=== PATIENT | female | born 1930 | race Caucasian/White ===

== ENCOUNTER 2018-07-04 20:29 | Emergency (ER) | payer MEDICARE ==
--- NOTE | 2018-07-04 21:44 | ED ---
Upper Extremity Pain - HPI Summary HPI Summary: Patient plans of right wrist pain after mechanical fall while working in the garden. Denies any other injuries, pain, symptoms including head injury, LOC, N /V, vision change, focal deficits. No anti-coag. Denies medical history. - History of Current Complaint Chief Complaint: EDExtremityUpper Stated Complaint: RT WRIST INJURY Time Seen by Provider: 07/04/18 21:19 Hx Obtained From: Patient Mechanism Of Injury: Fall From A Standing Position Onset/Duration: Started Hours Ago Timing: Constant Severity Initially: Moderate Severity Currently: Moderate Pain Location: Wrist Character: Throbbing Aggravating Factor(s): Movement Alleviating Factor(s): Ice Associated Signs & Symptoms: Positive: Swelling - Allergies/Home Medications Allergies/Adverse Reactions: Allergies Allergy/AdvReac Type Severity Reaction Status Date / Time No Known Allergies Allergy Verified 07/04/18 20:34 PMH/Surg Hx/FS Hx/Imm Hx Endocrine/Hematology History: Denies: Hx Anticoagulant Therapy Cardiovascular History: Denies: Hx Cardiac Arrest History: Denies: Hx Dialysis Neurological History: Denies: Hx CVA Infectious Disease History: No Infectious Disease History: Denies: Traveled Outside the [place] in Last 30 Days - Social History Alcohol Use: Daily Alcohol Amount: one glasss of wine Substance Use Type: Reports: None Smoking Status (MU): Former Smoker Review of Systems Constitutional: Negative Eyes: Negative ENT: Negative Cardiovascular: Negative Respiratory: Negative Gastrointestinal: Negative Genitourinary: Negative Musculoskeletal: Other Skin: Negative Neurological: Negative Psychological: Normal All Other Systems Reviewed And Are Negative: Yes Physical Exam - Summary Physical Exam Summary: Dorsal swelling and likely deformity to right wrist. Mild snuffbox tenderness. Patient able to flex and extend right wrist. PMS intact distally. No pain with flexion or extension of right elbow, right shoulder. Triage Information Reviewed: Yes Vital Signs On Initial Exam: Initial Vitals Temp Pulse Resp BP Pulse Ox 98.9 F 71 18 146/105 100 07/04/18 20:30 07/04/18 20:30 07/04/18 20:30 07/04/18 20:30 07/04/18 20:30 Vital Signs Reviewed: Yes Appearance: Positive: Well-Appearing Skin: Positive: Warm Head/Face: Positive: Normal Head/Face Inspection Eyes: Positive: Normal Neck: Positive: Supple Respiratory/Lung Sounds: Positive: Clear to Auscultation Cardiovascular: Positive: Normal Abdomen Description: Positive: Nontender Musculoskeletal: Positive: Normal Neurological: Positive: Normal Psychiatric: Positive: Normal AVPU Assessment: Alert - [place] Coma Scale Best Eye Response: 4 - Spontaneous Best Motor Response: 6 - Obeys Commands Best Verbal Response: 5 - Oriented Coma Scale Total: 15 Procedures - Splinting 1 Location: right wrist Hand-Made Type: orthoglass Splint: sugar-tong Pre-Proc Neuro Vasc Exam: normal Post-Proc Neuro Vasc Exam: normal Diagnostics - Vital Signs Vital Signs Temp Pulse Resp BP Pulse Ox 07/04/18 20:30 98.9 F 71 18 146/105 100 - Laboratory Lab Statement: Any lab studies that have been ordered have been reviewed, and results considered in the medical decision making process. - Radiology wrist Xray Interpretation: Positive (See Comments) - Distal radius fracture Radiology Interpretation Completed By: ED Physician forearm Xray Interpretation: Positive (See Comments) - Distal radius fracture Radiology Interpretation Completed By: ED Physician Course/Dx - Course Course Of Treatment: Patient plans of right wrist pain after mechanical fall while working in the garden. Denies any other injuries, pain, symptoms including head injury, LOC, N/V, vision change, focal deficits. No anti-coag. Denies medical history. Physical exam:Dorsal swelling to right wrist, with likley deformity. Mild snuffbox tenderness. Patient able to flex and extend right wrist. PMS intact distally. No pain with flexion or extension of right elbow, right shoulder. Sugar tong placed here in ED. Follow-up with Orthopedics tomorrow. Patient refused narcotic pain control - Diagnoses Provider Diagnoses: Fall, Distal radius fracture, right Discharge - Sign-Out/Discharge Documenting (check all that apply): Patient Departure - Discharge Plan Condition: Stable Disposition: HOME Patient Education Materials: Fall Prevention (ED) Referrals: Ian Alvares MD [Primary Care Provider] - Bella Duke MD [Medical Doctor] - Additional Instructions: Follow-up with orthopedics. Return to the ED for any new or worsening symptoms - Billing Disposition and Condition Condition: STABLE Disposition: Home
[2018-07-04] MEDS ORDERED: Acetaminophen TAB* 325 MG PO ONE (22:39)
[2018-07-04 23:19] VITALS: BP 152/68
--- NOTE | 2018-07-05 07:31 | RAD ---
INDICATION: Right elbow and wrist pain after a fall TECHNIQUE: 2 views of the right forearm and 3 views of the right wrist were obtained. FINDINGS: The right elbow and proximal forearm are intact and appropriately aligned. There is a fracture at the distal right radial metaphysis exhibiting minimal impaction and approximately 20 degrees of dorsal angulation. The remaining visualized bones of the right wrist are intact and appropriately aligned. Degenerative changes at the right thumb include sclerotic of the metacarpal trapezium joint. IMPRESSION: Distal right radius fracture. R0
== END 2018-07-04 23:18 | disposition home or self-care (01) ==
LOC: ED 20:29
DX: S52.501A Unspecified fracture of the lower end of right radius, initial encounter for closed fracture (principal); W19.XXXA Unspecified fall, initial encounter; Y93.H2 Activity, gardening and landscaping; Y92.096 Garden or yard of other non-institutional residence as the place of occurrence of the external cause; Z87.891 Personal history of nicotine dependence
CPT/HCPCS: 99282; A9270-GY

== ENCOUNTER 2018-07-09 08:37 | Day surgery (SDC) | payer MEDICARE ==
--- NOTE | 2018-07-07 14:06 | HP ---
PREOPERATIVE HISTORY AND PHYSICAL EXAM: DATE OF SURGERY/ADMISSION: 07/09/18 - OR EAST DATE OF OFFICE VISIT/ENCOUNTER: 07/07/18. ATTENDING PHYSICIAN: Bella Duke MD.* (DICTATED BY ROSENDA GUAJARDO) PROCEDURE: Open reduction and internal fixation, right wrist. CHIEF COMPLAINT: Right distal radius fracture. HISTORY OF PRESENT ILLNESS: This is an 88-year-old female, who sustained injury to her right wrist when she fell at home, on 07/04/18. She was seen at [facility] where x-ray showed a displaced and angulated fracture of the distal radius. She was placed in a splint and perhaps underwent a closed reduction; however, there is no post splinting x- ray. She reports that her pain is minimal at this point. She has just been using [id number]-ekinuvi medications. She denies any numbness and tingling. She denies other injury. After evaluation by Dr. Duke and review of x-rays, it is recommended that she undergo open reduction and internal fixation of the fracture. The patient has consented to proceed. PAST MEDICAL HISTORY: Macular degeneration. PAST SURGICAL HISTORY: None. CURRENT MEDICATIONS: 1. Aspirin. 2. Aleve. 3. Ibuprofen p.r.n. ALLERGIES: No known drug allergies. FAMILY MEDICAL HISTORY: Cancer. SOCIAL HISTORY: The patient is retired. She lives at home alone. She is a former smoker. She quit approximately 15 years ago. Prior to that, she smoked less than a pack per day for approximately 30 years. She denies recreational drug use. She does drink alcohol on regular occasion, typically a glass of wine daily. REVIEW OF SYSTEMS: General: Negative for fevers, chills, night sweats, unexplained weight loss/gain. No known anesthesia problems. HEENT: Negative for headache, lightheadedness, syncopal episodes, visual changes. Integumentary : Negative for abrasions, lesions, or open wounds. Cardiothoracic: Negative for hypertension, chest pain, palpitations, edema. Respiratory: Negative for shortness of breath with exertion, chronic cough, wheezing. GI: Negative for nausea, vomiting, diarrhea, constipation, GERD. : Negative for nocturia, urinary frequency, urgency, history of UTIs, kidney problems. Musculoskeletal: Positive for current complaint. Negative for chronic or intermittent back pain or history of fractures. Neurological: Negative for paresthesias, numbness, history of seizure, stroke, poor balance. Endocrine: Negative for diabetes and thyroid issues. Hematologic: Negative for easy bruising, anemia, bleeding disorders, history of DVT. Infectious Disease: Negative for history of MRSA, hepatitis C, HIV. PHYSICAL EXAMINATION GENERAL: Well-developed, well-nourished 88-year-old female, in no acute distress. VITAL SIGNS: Height 5 feet 1-1/2 inches, weight 121 pounds. Pulse rate 76, blood pressure 154/90. HEENT: Normocephalic, atraumatic. Pupils were equal, round, and reactive to light and accommodation. Extraocular movements are intact. Throat is clear. NECK: Supple. No palpable lymph nodes. PULMONARY: Lungs are clear to auscultation bilaterally. No wheezes, rales, or rhonchi. CARDIOVASCULAR: Regular rate and rhythm. S1, S2. No murmurs, rubs, or gallops. No edema. ABDOMEN: Positive bowel sounds. Soft, nontender. NEUROLOGICAL: Alert and oriented x3. Cranial nerves II through XII are intact. Sensation is intact to light touch. MUSCULOSKELETAL: On exam of her right upper extremity, the wrist is splinted in a Sugar-Tong splint. She has good motion in her fingers. There is mild swelling in the fingers, but she has sensation intact. Skin is intact and neurovascular function is intact. IMAGING STUDIES: X-rays, AP and lateral of the right wrist show persistent malalignment of the fracture fragments of the apex, volar angulation. IMPRESSION: Right distal radius fracture, displaced and angulated. PLAN: The patient is scheduled to undergo an open reduction and internal fixation of the right wrist with Dr. Duke, on 07/09/18. She will return to the office 10 days postop for followup and suture removal. A prescription for [place] was e- scribed to the patient's pharmacy for postoperative pain management. ROSENDA GUAJARDO [id number]/[facility] #: [id number] MTDLila
[~2018-07-09 08:37] MED LIST: Buffered Lidocaine 0.9% SYRIN* 5 ML/SYR SYRINGE INTRADERM ONE; Famotidine IV* 10 MG/ML 2 ML (20 mg) IV ONE; Famotidine IV* 10 MG/ML 2 ML (20 mg) ONE
[2018-07-09] MEDS ORDERED: ceFAZolin 2 GM PREMIX (*) 2 GM/50 ML BAG IVPB ONE (08:47)
[2018-07-09] MEDS ORDERED: KETAMINE HCL* 50 MG/ML 10 ML VIAL ONE (09:17)
[2018-07-09] MEDS ORDERED: fentaNYL* 50 MCG/ML 2 ML VIAL (100 MCG VIAL) ONE (09:17)
[2018-07-09] MEDS ORDERED: Midazolam* 1 MG/ML 2 ML VIAL (2 MG) ONE (09:17)
[2018-07-09] MEDS ORDERED: Lidocaine 1%* 5 ML VIAL ONE (09:48)
[2018-07-09] MEDS ORDERED: ROPIVACAINE 5 MG/ML 30 ML BTL (0.5%) ONE (09:48)
[2018-07-09] MEDS ORDERED: Bupivacaine 0.5% PF 10 ML VIAL INJ ONE (09:54)
[2018-07-09] MEDS ORDERED: Propofol* 10 MG/ML 20 ML BTL IV PUSH ONE (10:52)
[2018-07-09] MEDS ORDERED: Ketorolac INJ* 30 MG/ML 1 ML VIAL ONE (10:52)
[2018-07-09] MEDS ORDERED: Ondansetron INJ* 2 MG/ML VIAL ONE (10:52)
[2018-07-09] MEDS ORDERED: Naloxone* 0.4 MG/ML 1 ML VIAL IV PRN (11:07)
[2018-07-09] MEDS ORDERED: Acetaminophen TAB* 325 MG PO PRN (11:07)
[2018-07-09 11:34] VITALS: BP 148/74
--- NOTE | 2018-07-09 14:46 | RAD ---
INDICATION: Right wrist ORIF COMPARISON: July 07, 2018 FINDINGS: 33 seconds of fluoroscopy were provided for the orthopedics department. Fluoroscopic spot imaging of the right wrist were obtained for operative control and show ORIF of the distal radial fracture with reduction of the angular deformity. The fracture fragments are in anatomic position. . CPT II Codes: G9500 (fluoro time doc)
--- NOTE | 2018-07-10 01:46 | OP ---
CC: Dr. Duke OPERATIVE NOTE: DATE OF OPERATION: 07/09/18 DATE OF : 34 SURGEON: Bella Duke MD RUBBER MOLD MAKER: ROSENDA [place] ANESTHESIA: Block. PRE-OP DIAGNOSIS: Distal radius fracture on the right with angulation. POST-OP DIAGNOSIS: Distal radius fracture on the right with angulation. OPERATIVE PROCEDURE: Open reduction and internal fixation of the right distal radius. ESTIMATED BLOOD LOSS: Zero. TOURNIQUET TIME: Approximately 40 minutes. INDICATIONS FOR PROCEDURE: Samra is an 88-year-old female who fell at home and injured her right wr ist. Closed reduction in the emergency room did provide adequate alignment of the fracture fragments . She presents for ORIF of the right distal radius. DESCRIPTION OF PROCEDURE: The patient was brought to the operating room and was given a sedation ane sthetic and a block anesthetic. The skin of her right upper extremity was prepped and draped in the usual sterile fashion. The hand and forearm were exsanguinated and the tourniquet elevated to 250 mm Hg. A longitudinal incision was made, centered over the FCR tendon. We dissected through the superf icial and deep sheath of the FCR tendon and then FPL muscle and tendons were retracted ulnarly. The pronator quadratus was incised in L-shaped fashion and the muscle was subperiosteally dissected off t he bone. The fracture fragments were reduced and then secured a 2.4 variable angle plate with 3 prox imal and 4 distal screws. The position of the hardware and fracture fragments were checked on the C- arm in the AP and lateral views and found to be satisfactory. The wound was irrigated. The pronato r quadratus muscle was repaired with 2-0 Vicryl suture as was the deep portion of the FCR tendon parekh th. This was after irrigating the wound. The skin edges were then reapproximated with 4-0 nylon sut ure. The wound was dressed with Xeroform, 4x4, Webril, and metal volar splint. The patient tolerate d the procedure well and was brought to the recovery room in good condition. [id number]/[facility] #: [id number]
== END 2018-07-09 11:49 | disposition home or self-care (01) ==
LOC: OREAST 08:37
PROVIDERS: ATTEND Orthopaedic Surgery
DX: S52.501A Unspecified fracture of the lower end of right radius, initial encounter for closed fracture (principal); Z87.891 Personal history of nicotine dependence; W19.XXXA Unspecified fall, initial encounter; Y92.009 Unspecified place in unspecified non-institutional (private) residence as the place of occurrence of the external cause
CPT/HCPCS: 76000; C1713; C1776; J0690; J1885; J2250; J2405; J2704; J2795; J3010

== ENCOUNTER 2019-10-04 23:25 | Emergency (ER) | payer MEDICARE ==
[2019-10-05] MEDS ORDERED: Ondansetron INJ* 2 MG/ML VIAL IV ONE ×2 (00:22→03:50)
[2019-10-05] MEDS ORDERED: NS 0.9% 1000 ML** 1,000 ML IV ONE (00:24)
[2019-10-05] MEDS ORDERED: Metoclopramide IV* 5 MG/ML 2 ML VIAL IV ONE (01:13)
--- NOTE | 2019-10-05 01:40 | ED ---
Abdominal Pain/Female - HPI Summary HPI Summary: Patient complains of umbilical abdominal pain, low back pain, nausea with several episodes of vomiting starting this afternoon. Abdominal pain described as intermittent, and worse 10/10, currently 2/10, sharp. Denies fever, cough, sore throat, CP, SOB, diarrhea, change in urine. Medical history is none. Patient has not seen a doctor in a long time per family. Abdominal surgical history is none. - History of Current Complaint Chief Complaint: EDAbdPain Stated Complaint: RULE OUT CARDIAC PROB PER EMS Time Seen by Provider: 10/04/19 23:47 Hx Obtained From: Patient, Family/Delivery Manager Onset/Duration: Sudden Onset, Lasting Hours Timing: Intermittent Episode Lasting Severity Initially: Severe Severity Currently: Mild Pain Intensity: 9 Pain Scale Used: 0-10 Numeric Location: Epigastric, Umbilical Radiates to: Back Character: Sharp, Cramping Aggravating Factor(s): Nothing Alleviating Factor(s): Nothing Associated Signs and Symptoms: Positive: Nausea, Vomiting Allergies/Adverse Reactions: Allergies Allergy/AdvReac Type Severity Reaction Status Date / Time No Known Allergies Allergy Verified 10/04/19 23:39 PMH/Surg Hx/FS Hx/Imm Hx Endocrine/Hematology History: Denies: Hx Anticoagulant Therapy, Hx Diabetes Cardiovascular History: Reports: Hx Hypertension Denies: Hx Cardiac Arrest History: Denies: Hx Dialysis, Hx Renal Disease Sensory History: Reports: Hx Contacts or Glasses - GLASSES Denies: Hx Hearing Aid Opthamlomology History: Reports: Hx Contacts or Glasses - GLASSES EENT History: Denies: Hx Deafness Neurological History: Denies: Hx CVA - Surgical History Surgery Procedure, Year, and Place: ANESTHESIA WITH CHILDBIRTH Hx Anesthesia Reactions: No Infectious Disease History: No Infectious Disease History: Denies: Traveled Outside the [place] in Last 30 Days - Family History Known Family History: Positive: Non-Contributory - Social History Alcohol Use: Daily Alcohol Amount: one glasss of wine Substance Use Type: Reports: None Smoking Status (MU): Former Smoker Amount Used/How Often: 2-3 CIGARETTES PER DAY X 20 YEARS Have You Smoked in the Last Year: No Review of Systems Constitutional: Negative Eyes: Negative ENT: Negative Cardiovascular: Negative Respiratory: Negative Positive: Abdominal Pain, Vomiting, Nausea Genitourinary: Negative Musculoskeletal: Negative Skin: Negative Neurological: Negative Psychological: Normal All Other Systems Reviewed And Are Negative: Yes Physical Exam - Summary Physical Exam Summary: Abdomen diffusely tender to palpation. Triage Information Reviewed: Yes Vital Signs On Initial Exam: Initial Vitals Temp Pulse Resp BP Pulse Ox 97.1 F 65 16 164/102 94 10/04/19 23:27 10/04/19 23:27 10/04/19 23:27 10/04/19 23:27 10/04/19 23:27 Vital Signs Reviewed: Yes Appearance: Positive: Well-Appearing Skin: Positive: Warm Head/Face: Positive: Normal Head/Face Inspection Eyes: Positive: Normal Neck: Positive: Supple Respiratory/Lung Sounds: Positive: Clear to Auscultation Cardiovascular: Positive: Normal Abdomen Description: Positive: Other: Musculoskeletal: Positive: Normal Neurological: Positive: Normal Psychiatric: Positive: Normal AVPU Assessment: Alert - [place] Coma Scale Best Eye Response: 4 - Spontaneous Best Motor Response: 6 - Obeys Commands Best Verbal Response: 5 - Oriented Coma Scale Total: 15 Procedures - Sedation Patient Received Moderate/Deep Sedation with Procedure: No Diagnostics - Vital Signs Vital Signs Temp Pulse Resp BP Pulse Ox 10/05/19 01:05 63 22 152/91 96 10/05/19 01:00 65 26 95 10/05/19 00:35 63 21 177/87 98 10/05/19 00:18 68 25 97 10/05/19 00:05 63 25 156/66 96 10/05/19 00:00 64 12 97 10/04/19 23:36 72 21 164/102 98 10/04/19 23:32 65 96 10/04/19 23:27 97.1 F 65 16 164/102 94 - Laboratory Result Diagrams: 10/05/19 01:40 10/05/19 01:40 Lab Statement: Any lab studies that have been ordered have been reviewed, and results considered in the medical decision making process. Re-Evaluation - Re-Evaluation First Eval Re-Evaluation Time: 04:20 Change: Unchanged Comment: We discussed plan for transfer for further treatment. Abdominal Pain Fem Course/Dx - Course Course Of Treatment: Patient complains of umbilical abdominal pain, low back pain, nausea with several episodes of vomiting starting this afternoon. Abdominal pain described as intermittent, and worse 10/10, currently 2/10, sharp. Denies fever, cough, sore throat, CP, SOB, diarrhea, change in urine. Medical history is none. Patient has not seen a doctor in a long time per family. Abdominal surgical history is none. Vital signs within normal limits. WBC 15.7. EKG sinus rhythm, heart rate is 64, normal P axis. No prior EKG on file. Initial troponin 0.16. Ultrasound of the gallbladder positive for dilation of the common bile duct to 8 mm. 1.6 cm x 1.0 cm x 1.9 cm hypoechoic avascular lesion in the caudate lobe of the liver, which may represent a cyst or heterogeneity in the liver. UA positive for nitrates, positive for bacteria , positive for WBC. Started on Rocephin [address] abdomen and pelvis results pending. Have discussed patient with hospitalist who also recommended adding ABG. Patient signed out to Dr. Anthony. - Diagnoses Provider Diagnoses: Common bile duct (CBD) obstruction, SBO (small bowel obstruction) Discharge ED - Sign-Out/Discharge Documenting (check all that apply): Sign-Out Patient Signing out patient TO: Mila Anthony - Discharge Plan Condition: Stable Disposition: TRANS HIGHER LVL OF CARE FAC Referrals: Ian Alvares MD [Primary Care Provider] - - Billing Disposition and Condition Condition: STABLE Disposition: Trans Higher Lvl of Care Fac
[2019-10-05 01:52] LABS: ABS Basophils 0.1 10^3/ul (0-0.2); ABS Eosinophils 0.1 10^3/ul (0-0.6); ABS Lymphocytes 1.1 10^3/ul (1.0-4.8); ABS Monocytes 0.7 10^3/ul (0-0.8); ABS Neutrophils 13.7 10^3/ul (1.5-7.7); Eosinophil % 0.4 %; Hematocrit 46 % (35-47); Lymphocyte % 7.2 %; Mean Corpuscular HGB Conc 33 g/dL (31-36); Mean Corpuscular Hemoglobin 31 pg (27-31); Mean Corpuscular Volume 95 fL (80-97); Mean Platelet Volume 8.3 fL (7.4-10.4); Nucleated Red Blood Cells % 0.1; Platelet Count 181 10^3/uL (150-450); Red Blood Count 4.85 10^6 /uL (3.70-4.87); Red Cell Distribution Width 14 % (10-15); White Blood Count 15.7 10^3/uL (3.5-10.8)
[2019-10-05 02:00] LABS: Urine Appearance Cloudy; Urine Bacteria 3+ (Absent); Urine Bilirubin Negative (Negative); Urine Blood Negative (Negative); Urine Color Yellow; Urine Glucose 2+(150 mg/dL) (Negative); Urine Ketones 1+ (Negative); Urine Nitrite Positive (Negative); Urine Protein 1+(30 mg/dL) (Negative); Urine Red Blood Cell Absent (Absent); Urine Specific Gravity 1.018 (1.010-1.030); Urine Squamous Epithelial Cell Present (Absent); Urine Urobilinogen Negative (Negative); Urine White Blood Cell 2+(11-20/hpf) (Absent)
[2019-10-05 02:08] LABS: ALT 13 U/L (7-52); AST 17 U/L (13-39); Albumin/Globulin Ratio 1.5 (1-3); Alkaline Phosphatase 83 U/L (34-104); Anion Gap 9 mmol/L (2-11); BUN/Creatinine Ratio 29.5 (8-20); Blood Urea Nitrogen 26 mg/dL (6-24); C Reactive Protein 1.71 mg/L (<8.01); CO2 Carbon Dioxide 24 mmol/L (22-32); Calcium 9.3 mg/dL (8.6-10.3); Chloride 106 mmol/L (101-111); EGFR African American 73.5 (>60); EGFR Non-African American 60.8 (>60); Globulin 2.6 g/dL (2-4); Glucose 225 mg/dL (70-100); Sodium 139 mmol/L (135-145); Total Protein 6.6 g/dL (6.4-8.9)
[2019-10-05] MEDS ORDERED: Iohexol 300* (CONTRAST) 10 ML SDV IV ONE (02:17)
[2019-10-05 02:38] LABS: Troponin I 0.16 ng/mL (<0.04)
[2019-10-05] MEDS ORDERED: cefTRIAXone(*) 1 GM in NS 0.9% 50 ML* 50 ML IVPB ONE (02:38)
[2019-10-05 02:44] LABS: TSH (Thyroid Stimulating Horm) 13.14 mcIU/mL (0.34-5.60)
--- NOTE | 2019-10-05 03:04 | ED ---
Progress - Progress Note Progress Note: The patient is a sign-out from ROSENDA Us, to Dr. Mila Anthony MD, at change of shift at 0230 on 10/05/2019, pending Chest X-ray results, Abdominopelvic CT results and consultation for possible admission. Chest X-ray, per ED physician, reveals increased interstitial markings consistent with CHF. Abdominopelvic CT reveals SBO with closed-loop SBO on right, cholelithiasis and choledocholithiasis with dilated common bile duct, and duodenal and colonic diverticulosis. She is administered Protonix following CT results and Zofran for nausea. Patient will need ERCP with GI, which is not available at [facility], so transfer will be initiated. 0412 - Dr. Stephenson, hospitalist, is aware of plan for transfer 0427 - I spoke with Dr. Nolen, surgery at [facility], and he accepts the patient for transfer - Results/Orders Results/Orders: CXR: Increased interstitial markings consistent with CHF. ED physician has reviewed and interpreted this report. Pending official read. Abd/Pel CT Impression: 1. Small bowel obstruction, with a closed-loop small bowel obstruction in the right side of the abdomen secondary to adhesions. 2. Cholelithiasis and choledocholithiasis with dilation of the common bile duct. 3. Duodenal and colonic diverticulosis without evidence for diverticulitis. 4. Moderate size sliding hiatal hernia and evidence for gastroesophageal reflux. ED physician has reviewed this report. Re-Evaluation - Re-Evaluation First Eval Re-Evaluation Time: 04:20 Change: Unchanged Comment: We discussed plan for transfer for further treatment. Course/Dx - Diagnoses Provider Diagnoses: Common bile duct (CBD) obstruction, SBO (small bowel obstruction) - Provider Notifications Discussed Care Of Patient With: Joaquin Larose - surgery Time Discussed With Above Provider: 04:27 Instructed by Provider To: Transfer - Dr. Nolen accepts the patient for transfer. Admit/Transition Orders Completed By ED Provider: Yes Reason For Transfer: Specialty or service not available at [facility]. Discharge ED - Sign-Out/Discharge Documenting (check all that apply): Patient Departure - Patient will be transferred to [facility], accepted by Dr. Nolen, Receiving Sign-Out Receiving patient FROM: Noam Servin - Patient is a sign-out from Noam Servin, at 0230 on 10/05/2019, pending CXR, Abd/Pel CT results, and disposition. - Discharge Plan Condition: Stable Disposition: TRANS HIGHER LVL OF CARE FAC Referrals: Ian Alvares MD [Primary Care Provider] - - Attestation Statements Document Initiated by Scribe: Yes Documenting Scribe: Marian Harmon Provider For Whom Scribe is Documenting (Include Credential): Dr. Mila Anthony MD Scribe Attestation: I, Marian Harmon scribed for Dr. Mila Anthony MD on 10/05/19 at 0345. Status of Scribe Document: Ready Procedures - Sedation Patient Received Moderate/Deep Sedation with Procedure: No
[2019-10-05] MEDS ORDERED: Pantoprazole IV* 40 MG IV ONE (03:50)
[2019-10-05 04:23] LABS: Free T4 1.13 ng/dL (0.61-1.12)
[2019-10-05] MEDS ORDERED: LORazepam INJ* 2 MG/ML 1 ML VIAL IV PUSH ONE ×2 (04:45→04:46)
[2019-10-05] MEDS ORDERED: Lorazepam PYXIS KEY PRN ×2 (04:45→04:46)
[2019-10-05] MEDS ORDERED: Lorazepam PYXIS KEY ONE (04:48)
[2019-10-05 10:10] VITALS: BP 163/84
--- NOTE | 2019-10-07 07:35 | ED ---
Imaging and Labs Follow Up Follow Up Type: Labs/Cultures Labs/Culture Result: Urine culture growing >100k e. coli. Patient Communication/Plan: Pt. was ultimately transferred for CBD obstruction. Was started on IV antibx. Provider Diagnoses: Common bile duct (CBD) obstruction, SBO (small bowel obstruction)
== END 2019-10-05 10:46 | disposition short-term general hospital (02) ==
LOC: ED 23:25
DX: K80.01 Calculus of gallbladder with acute cholecystitis with obstruction (principal); K56.609 Unspecified intestinal obstruction, unspecified as to partial versus complete obstruction; I10 Essential (primary) hypertension; M54.2 Cervicalgia; Z87.891 Personal history of nicotine dependence; Z79.899 Other long term (current) drug therapy
CPT/HCPCS: 36415; 71045; 71046; 74177; 76705; 80053; 81003; 81015; 82803; 83690; 83880; 84439; 84443; 84484; 85025; 86140; 87077; 87086; 87186; 93005; 96361; 96365; 96375; 96376; 99285; J0696; J2060; J2405; J2765; Q9967

== ENCOUNTER 2019-10-17 13:57 | Inpatient (IN) | payer MEDICARE ==
--- OUTSIDE RECORDS SUMMARY | 2019-10-17 15:40 | XMS REPORT ---
:1930 Author Organization [facility] Care Team Providers Name Role Phone Unavailable Unavailable Unavailable Problems Condition Condition Condition Status Onset Resolution Last Treating Comments Name Details Category Date Date Treatment Clinician Date Pain frequent Pain Mgmt Active 2018-11 Kitty pain 12-14 [place] 11:55: [id number] Cardio edema Cardiovasc Active 2018-11 Kitty ular 12-14 [place] 11:55: [id number] 00 Respiratory dyspnea Respirator Active 2018-11 Kitty present y 12-14 [place] 11:55: [id number] 00 Integument surgical Integument Active 2018-11 Kitty wound 12-14 [place] present 11:55: [id number] 00 Nutrition nutritional Nutrition Active 2018-11 Kitty restriction 12-14 [place] s 11:55: [id number] 00 Elimination urinary Eliminatio Active 2018-11 Kitty incontinenc n 12-14 [place] e 11:55: [id number] 00 Neuro confusion Neuro/Emot Active 2018-11 Kitty present ion 12-14 [place] 11:55: [id number] 00 Activity ADL Activity Active 2018-11 Kitty assistance 12-14 [place] required 11:55: [id number] 00 Activity self-care Activity Active 2018-11 Kitty deficit 12-14 [place] 11:55: [id number] 00 Safety fall risk Safety Active 2018-11 Kitty factor 12-14 [place] present 11:55: [id number] 00 Safety risk for Safety Active 2018-11 Kitty hospitaliza 12-14 [place] tion 11:55: [id number] 00 Safety structural Safety Active 2018-11 Kitty barriers 12-14 [place] present 11:55: [id number] 00 Safety cannot be Safety Active 2018-11 Kitty left alone 12-14 [place] 11:55: [id number] 00 Medication oral med Meds Active 2018-11 Kitty assistance 12-14 [place] required 11:55: [id number] 00 Musculoskel transfer Musculoske Active 2018-11 Kitty etal assistance letal 12-14 [place] required 11:55: [id number] 00 Musculoskel requires Musculoske Active 2018-11 Kitty etal human letal 12-14 [place] assist to 11:55: [id number] leave home 00 Safety can be left Safety Active 2018-11 Jonathan alone for -15 Michelle only short 15:20: [id number] periods 00 Strength/To knowledge/s PT: Active 2018-11 Jonathan ne/Motor kill Strength 15 Michelle Control deficit LE: 15:20: [id number] pt 00 Strength/To knowledge/s PT: Active 2018-11 Jonathan ne/Motor kill Strength 12-14 [place] Control deficit LE: 15:20: [id number] cg 00 Bed mobility/tr PT/OT: Bed Active 2018-11 Jonathan Mobility/Tr ansfer Mobility/T -15 Michelle wing device ransfer 15:20: [id number] present 00 Bed transfer PT/OT: Bed Active 2018-11 Jonathan Mobility/Tr deficit: Mobility/T 1-15 Michelle wing sit/stand ransfer 15:20: [id number] 00 Bed transfer PT/OT: Bed Active 2018-11 Jonathan Mobility/Tr deficit: Mobility/T 1-15 Michelle wing standing ransfer 15:20: [id number] pivot 00 Bed transfer PT/OT: Bed Active 2018-11 Jonathan Mobility/Tr deficit: Mobility/T 1-15 Michelle wing toilet/comm ransfer 15:20: [id number] ode 00 Bed transfer PT/OT: Bed Active 2018-11 Jonathan Mobility/Tr deficit: Mobility/T 1-15 Michelle wing shower/tub ransfer 15:20: [id number] 00 Bed transfer PT/OT: Bed Active 2018-11 Jonathan Mobility/Tr deficit: Mobility/T 1-15 Michelle wing vehicle ransfer 15:20: [id number] 00 Bed knowledge/s PT/OT: Bed Active 2018-11 Jonathan Mobility/Tr kill Mobility/T 1-15 Michelle wing deficit: pt ransfer 15:20: [id number] 00 Bed knowledge/s PT/OT: Bed Active 2018-11 Jonathan Mobility/Tr kill Mobility/T 1-15 [place] ansfer deficit: cg ransfer 15:20: [id number] 00 Balance/End balance/academic coordinator PT/OT: Active 2018-11 Jonathan urance rdination Balance/En 1-15 [place] deficit durance 15:20: [id number] 00 OT: Self self-care OT: Active 2018-11 Jonathan Care deficit Self-Care 1-15 [place] 15:20: [id number] 00 OT: Self knowledge/s OT: Active 2018-11 Jonathan Care kill Self-Care 1-15 [place] deficit: pt 15:20: [id number] 00 Gait/Locomo gait PT/OT: Active 2018-11 Jonathan tion assistive Gait/Locom 1-15 [place] problems device otion 15:20: [id number] present 00 Gait/Locomo knowledge/s PT/OT: Active 2018-11 Jonathan tion kill Gait/Locom 1-15 Kobz[place] problems deficit: pt otion 15:20: [id number] 00 Gait/Locomo gait PT/OT: Active 2018-11 Jonathan tion deficit Gait/Locom 1-15 [place] problems otion 15:20: [id number] 00 Allergies, Adverse Reactions, Alerts Allergy Allergy Status Severity Reaction(s) Onset Inactive Treating Comments Name Type Date Date Clinician Unknown None Active Unknown None Unknown No Known Allergies For This Patient Medications Ordered Filled Start Stop Current Ordering Indication Dosage Frequency Signature Comments Components Medication Medication Date Date Medication? Clinician (SIG) Name Name No Known No Known No None None None Medications Medications For This For This Patient Patient Vital Signs Vital Name Observation Time Observation Value Comments SYSTOLIC mm[Hg] 2019-10-14 18:08:52 100 mm[Hg] mm[Hg] Method: Sit SYSTOLIC mm[Hg] 2019-10-14 18:08:52 100 mm[Hg] mm[Hg] Method: Stand DIASTOLIC mm[Hg] 2019-10-14 18:08:52 60 mm[Hg] mm[Hg] Method: Sit DIASTOLIC mm[Hg] 2019-10-14 18:08:52 60 mm[Hg] mm[Hg] Method: Stand PULSE 2019-10-14 18:08:52 72 /min /min RESP RATE 2019-10-14 18:08:52 14 /min /min TEMP 2019-10-14 18:08:52 97.7 [degF] Procedures This patient has no known procedures. Results This patient has no known results.
--- OUTSIDE RECORDS SUMMARY | 2019-10-17 15:40 | XMS REPORT ---
:1930 Author Organization [facility] Care Team Providers Name Role Phone Unavailable Unavailable Unavailable Problems This patient has no known problems. Allergies, Adverse Reactions, Alerts Allergy Allergy Status [...] Medications For This For This Patient Patient Procedures This patient has no known procedures. Results This patient has no known results.
--- OUTSIDE RECORDS SUMMARY | 2019-10-17 15:40 | XMS REPORT | Summary of Care ---
:1930 Author Organization [facility] Address [address] [address] Care Team Providers Name Role Phone None, Labelle Primary Care Provider Unavailable Reason for Referral Refer to Department Only (Routine) Status Reason Specialty Diagnoses / Referred By Referred To Procedures Contact Contact Pending Review Diagnoses Generalized abdominal pain Armand Trujillo FNP-C [address] [id number] Scheduling Instructions Medicare Home Health: The sgap-hp-oglf visit can be up to 90 days prior to the referral or within 30 days after the referral. The ruwj-rw-fbmw visit must be related to the reason for which Home Health is needed. See CMS Manual System - Medicare Benefit Policy under Additional Order Details. Durable Medical Equipment (Routine) Status Reason Specialty Diagnoses / Referred By Referred To Procedures Contact Contact Pending Review Diagnoses SBO (small bowel obstruction) (HCC) Armand Trujillo FNP-C [address] [id number] (Routine) Status Reason Specialty Diagnoses / Procedures Referred By Contact Referred To Contact Gee Johnson MD [address] [id number] Scheduling Instructions Reason for Consult: patient 89F with no previous abdominal surgical hx, presents with small bowel obstruction, dilated CBD on CT and stone in distal CBD on CT scan. LFT normal. We are taking her to the OR for exploratory laparotomy. Please assist in care. Is it possible to arrange simultaneous ERCP in the OR. Thank you Patient Background: Samra Garcia is a 89-y.o. female Reason for Visit Reason Comments Abdominal Pain Auth/Cert Status Reason Specialty Diagnoses / Procedures Referred By Contact Referred To Contact Encounter Details Date Type Department Care Team Description 10/05/2019 - Hospital Encounter [facility] [address] [place] Raheem Jimenez MD [address] [id number] Inpatient 10/13/2019 1 Joaquin Keys MD [address] [address] [phone] [address] [address] Allergies No Known Allergiesdocumented as of this encounter (statuses as of 10/14/2019) Medications Medication Sig Dispensed Refills Start Date End Date Status HYDROcodone-acetamino Take 15 mL by 420 mL 0 10/13/2019 10/20/2019 Active phen (LORTAB) 7.5-325 mouth EVERY SIX MG/15ML Oral Solution HOURS NEEDED (Severe pain only) for up to 7 days. Max Daily Amount: 60 mL. documented as of this encounter (statuses as of 10/14/2019) Active Problems Problem Noted Date SBO (small bowel obstruction) 10/06/2019 Hypomagnesemia 10/06/2019 Hyperglycemia 10/06/2019 Choledocholithiasis 10/06/2019 NSTEMI (non-ST elevated myocardial infarction) 10/06/2019 Acute respiratory insufficiency, postoperative 10/06/2019 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 10/06/2019 Ileus 10/06/2019 Hypovolemia 10/06/2019 documented as of this encounter (statuses as of 10/14/2019) Social History Tobacco Use Types Packs/Day Years Used Date Never Smoker 0 Smokeless Tobacco: Never Used Alcohol Use Drinks/Week oz/Week Comments Never Alcohol Habits Answer Date Recorded How often do you have a drink containing alcohol? Never 10/06/2019 How many drinks containing alcohol do you have on a typical Not asked day when you are drinking? How often do you have six or more drinks on one occasion? Not asked Sex Assigned at Date Recorded Not on file Job Start Date Occupation Industry Not on file Not on file Not on file Travel History Travel Start Travel End No recent travel history available. documented as of this encounter Last Filed Vital Signs Vital Sign Reading Time Taken Comments Blood Pressure 158/82 10/13/2019 7:15 AM EST Pulse 69 10/13/2019 7:15 AM EST Temperature 36.6 10/13/2019 7:15 AM EST C (97.8 F) Respiratory Rate 20 10/13/2019 7:15 AM EST Oxygen Saturation 98% 10/13/2019 7:15 AM EST Inhaled Oxygen Concentration - - Weight 52.2 kg (115 lb) 10/06/2019 10:30 AM EST Height 157.5 cm (5' 2") 10/06/2019 10:30 AM EST Body Mass Index 21.03 10/06/2019 10:30 AM EST documented in this encounter Discharge Summaries Garland Rocha MD - 10/13/2019 3:32 PM EST [facility] [address]. [id number] Discharge Summary Patient ID: Samra Garcia [id number] 89-y.o. 1930 Admission date: 10/05/2019 Discharge date: 10/13/2019 Admitting Physician: Joaquin Larose MD Indication for Admission: SBO (small bowel obstruction) (HCC), SBO (small bowel obstruction) (HCC) Principal Diagnosis: SBO (small bowel obstruction) (HCC) Other medical problems managed in the hospital: Principal Problem: SBO (small bowel obstruction) (HCC) Active Problems: Hypomagnesemia Hyperglycemia Choledocholithiasis NSTEMI (non-ST elevated myocardial infarction) (HCC) Acute respiratory insufficiency, postoperative 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 Ileus (HCC) Hypovolemia Discharged Condition: stable Hospital Course: Samra Garcia is a 89-y.o. female admitted on 10/05/19 transferred from [facility] for small bowel obstruction. She does not have previous history of abdominal surgeries. Patient taken to the OR 10/05/19 for exploratory laparotomy where she was found to have a closed loop bowel obstruction andunderwent reduction of internal hernia and closed loop small bowel obstruction with wound vac placed, then again on 10/06/19 with fascial closure/wound vac placed. The patient had nasogastric tube removed 09/06/19, and had a bowel movement this day. Started clear liquids 10/08/19. The patient had emesis that night and was distended 10/09/19, with NGT replaced/IVF resumed, with dextrose formulation IVF started 10/10/19 to minimize protein catabolism and epidural removed. On 11/17 NGT again removed given improvement in distension/nausea. By 10/12/19 patient was given regular diet. By 10/13/19 the patient had home health care arranged for Thursday/Thursday/Thursday wound vac changes starting 10/14/19 per case management, and was cleared for discharge. She was evaluated on day of discharge and was foundto be hemodynamically normal. Upon discharge Samra Garcia is tolerating a diet without nausea/emesis, pain is controlled on oral medications, she is ambulating independently, and she is voiding spontaneously. BP 158/82 Pulse 69 Temp 97.8 F (36.6 C) (Temporal) Resp 20 Ht 5' 2" (1.575 m) Wt 115 lb(52.2 kg) SpO2 98% BMI 21.03 kg/m2 Consults: CONSULT TO GASTROENTEROLOGY Treatments: analgesia antibiotics DVT Prophylaxis IV hydration wound care Procedures: Xr Abdomen 1 Ap View Result Date: 10/09/2019 Procedure(s): XR ABDOMEN 1 AP VIEW Date of service: 10/09/2019 9:19 AM Provided clinical information: 89-year-old female, request to confirm nasogastric catheter placement. Procedure And materials: Standard protocol. Comparison studies: 10/07/2019 Observations: There is a nasogastric tube, placed since the prior radiograph, which appears to be postpyloric (likely in the first or second portion of theduodenum). There are multiple distended loops of small bowel throughout the abdomen. This may represent ileus or obstruction. There is persistent hypoaeration of both lungs, more prominently the right.There is no consolidative process appreciated. The cardiomediastinal silhouette is stable. Interval placement of a nasogastric tube which is alert in appearance. Multiple distended loops of small bowel which may be seen in setting of obstruction or ileus. Urgency: Routine. This is a routine medical imaging report. Recommendation: No specific imaging recommendation. Signed by Leo Bobo MD on 10/09/2019 10:36 AM Xr Abdomen 1 Ap View Result Date: 10/07/2019 Procedure(s): XR ABDOMEN 1 AP VIEW Date of service: 10/07/2019 10:25 AM Provided clinical information: 89 years, Female, "surgery follow up" Procedure and materials: 1 view abdomen Comparison studies: Earlier same day 10/07/2019 Observations/ Impression: Enteric tube tip and sidehole port again seen within the region of proximal stomach. Positive enteric contrast material is again seen within the cecum and ascending colon as well as the descending and rectosigmoid colon. Urgency: Routine. This is a routine medical imaging report. Recommendation: No specific imaging recommendation. Signed by Girish Claire MD on 10/07/2019 12:20 PM Xr Abdomen 1 Ap View Result Date: 10/07/2019 Procedure(s): XR ABDOMEN 1 AP VIEW Date of service: 10/07/2019 5:03 AM Provided clinical information:89 years, Female, "please evaluate for contrast transit into colon" Procedure and materials: Standard protocol. Comparison studies: 10/06. Findings/impression: 1. Enteric contrast is present within the colon from cecum through proximal descending colon. Bowel gas pattern is nonobstructive. 2. Enteric tube tip and sidehole in the proximal stomach region. 3. Bibasilar atelectasis and trace effusions. Signed by Sohan Coombs on 10/07/2019 6:03 AM Xr Abdomen 1 Ap View Result Date: 10/06/2019 Procedure(s): XR ABDOMEN 1 AP VIEW Date of service: 10/06/2019 3:08 PM Provided clinical information:89 years, Female, "in OR" Procedure and materials: Standard protocol. Comparison studies: None. Correlation with CT abdomen pelvis October 05, 2019 Observations: No radiopaque foreign body seen. Enteric tube tip around gastroesophageal junction. Moderate constipation pattern. As above Urgency: Routine. This is a routine medical imaging report. Recommendation: No specific imaging recommendation. Signed by Aline Aquino MD on 10/06/2019 3:50 PM Xr Chest 1 View Result Date: 10/09/2019 PROCEDURE INFORMATION: Exam: XR Chest, 1 View Exam date and time: 10/09/2019 10: 51 AM Clinical history: 89 years old, female; Indication for study->s/p ng adjustment TECHNIQUE: Imaging protocol: XR of the chest Views: 1 view. COMPARISON: OT XR CHEST 2 VIEW PA AND LATERAL (STANDARD) 10/05/2019 2:55 AM FINDINGS: Tubes, catheters and devices: Nasogastric tube insertion extending into the distal stomach. Lungs: Mild interstitial lung scarring unchanged. Minimal increased density at the right lung basemostly represent atelectasis however a new small area of pneumonitis cannot be excluded. Pleural space: No pleural effusion. No pneumothorax. Heart/Mediastinum: Moderate cardiomegaly unchanged. Bones/joints: Unremarkable. Other findings: No change in increased density in the left retrocardiac region. 1. Nasogastric tube insertion extending into the distal stomach. 2. Minimal increased density at theright lung base mostly represent atelectasis however a new small area of pneumonitis cannot be excluded. THIS DOCUMENT HAS BEEN ELECTRONICALLY SIGNED BY ODILIA POWELL MD Xr Ercp Biliary And Pancreatic Result Date: 10/05/2019 Procedure(s): XR ERCP BILIARY AND PANCREATIC Date of service: 10/05/2019 3:48 PM Provided clinical information: 89 years, Female, "choledocolithiasis" Procedure and materials: fluoroscopy guidance . Potential limitations: Limited study. Comparison studies: None. Observations: Fluoroscopy was used to assist with ERCP. 389 seconds of fluoroscopy time were utilized. Fluoroscopy was used to assist with ERCP. Please reference to operating provider 's procedure note for further detail. Urgency: Routine. This is a routine medical imaging report. Signed by Wendy Riggins on 10/05/2019 5:16 PM Operations: Procedure(s): EXPLORATORY LAPAROTOMY, WOUND VAC REAPPLICATION Complications: None Medications: Current Discharge Medication List START taking these medications HYDROcodone-acetaminophen 7.5-325 MG/15ML Soln Commonly known as: LORTAB Dose: 15 mL Quantity: 420 mL Refills: 0 Take 15 mL by mouth EVERY SIX HOURS NEEDED (Severe pain only) for up to 7 days. Max Daily Amount:60 mL. Where to Get Your Medications These medications were sent to [id number] - [place], [place] - [address] [facility] [address] HYDROcodone-acetaminophen 7.5-325 MG/15ML Soln Oxygen or Positive Pressure Devices: none indicated Patient Instructions: Provider's Instructions Reason for Admission or Diagnosis:SBO (small bowel obstruction) (HCC), SBO ( small bowel obstruction)(HCC) Activity/Restrictions: Activity as tolerated, but no heavy lifting > 10 lbs (nothing heavier than a gallon of milk)or strenuous exercise for 4 weeks or until cleared by a physician at your post-operative appointment No driving while on narcotic pain medications prescribed by ANY provider Exercise and walk often daily Skin/Wound Care: Keep all skin near clean and dry. Observe for redness, swelling, or drainage. It is okay to be taking normal showers starting the day after surgery; let soap and water rinseover incisions and dry carefully No soaking baths or swimming until further advised at followup appointment Must have wound vac changed by home health care every Thursday, Thu and Thu starting Thu10/14/19, case management assures that this is set up now for 10/14 Discharge Diet:Regular home diet Special Instructions: Please take alternating over the counter Tylenol and Motrin as directed on the bottle. You have been written a prescription for a narcotic pain medication called Lortab. Do not drive while taking narcotics and do not drive while you are in pain. Narcotics can make you nauseous, so do not take this medication on an empty stomach. Narcotics can also make you constipated, so you may want to take a stool softener like Colace (docusate) while you are taking narcotics to prevent constipation. Stop taking Colace if you develop loose or runny stools. You may also try Miralax if you need additional help having bowel movements. Follow up in acute care surgery clinic within 2 weeks, this will be set up before you are discharged LESLYE Guidry Attending Note: I have had a [id number]-[id number] encounter with the patient on the date of discharge. The residents/midlevel providers have performed the discharge on my behalf. Vitals: 10/13/19 0715 BP: 158/82 Pulse: 69 Resp: 20 Temp: 97.8 F (36.6 C) SpO2: 98% Garland Pandey MD FACS Trauma & Acute Care Surgery [facility] 10/13/2019 20:34 documented in this encounter Discharge Instructions Teena Lewis RN - 10/13/2019Provider's Instructions Reason for Admission or Diagnosis:SBO (small bowel obstruction) (HCC), SBO ( small bowel obstruction)(HCC) Activity/Restrictions: Activity as tolerated, but no heavy lifting > 10 lbs (nothing heavier than a gallon of milk)or strenuous exercise for 4 weeks or until cleared by a physician at your post-operative appointment No driving while on narcotic pain medications prescribed by ANY provider Exercise and walk often daily Skin/Wound Care: Keep all skin near clean and dry. Observe for redness, swelling, or drainage. It is okay to be taking normal showers starting the day after surgery; let soap and water rinseover incisions and dry carefully No soaking baths or swimming until further advised at followup appointment Must have wound vac changed by home health care every Thursday, Thu and Thu starting Thu10/14/19, case management assures that this is set up now for 10/14 Discharge Diet: Regular home diet Special Instructions: Please take alternating over the counter Tylenol and Motrin as directed on the bottle. You have been written a prescription for a narcotic pain medication called Lortab. Do not drive while taking narcotics and do not drive while you are in pain. Narcotics can make you nauseous, sodo not take this medication on an empty stomach. Narcotics can also make you constipated, so you may want to take a stool softener like Colace (docusate) while you are taking narcotics to prevent constipation. Stop taking Colace if you develop loose or runny stools. You may also try Miralax if you need additional help having bowel movements. Follow up in acute care surgery clinic within 2 weeks, this will be set up before you are discharged Discharge Provider: KARLEE GuidryC Attending: Joaquin Larose MD Time: 14:57 Nurse's Instructions Please take alternating over the counter Tylenol and Motrin as directed on the bottle. You have been written a prescription for a narcotic pain medication called Lortab. Do not drive while taking narcotics and do not drive while you are in pain. Narcotics can make you nauseous, sodo not take this medication on an empty stomach. Narcotics can also make you constipated, so you may want to take a stool softener like Colace (docusate) while you are taking narcotics to prevent constipation. Stop taking Colace if you develop loose or runny stools. You may also try Miralax if you need additional help having bowel movements. Follow up in acute care surgery clinic within 2 weeks, this will be set up before you are discharged Keep all skin near clean and dry. Observe for redness, swelling, or drainage. It is okay to be taking normal showers starting the day after surgery; let soap and water rinseover incisions and dry carefully No soaking baths or swimming until further advised at followup appointment Must have wound vac changed by home health care every Thursday, Thu and Thu starting Thu10/14/19, case management assures that this is set up now for 10/14 Discharge Diet: Regular home diet Problems to report to your Physician: Excessive pain or discomfort Fever > 100.5 degrees Difficulty breathing Increase or smell in wound drainage Skin/Wound Care: Skin intact on discharge: {SKIN/WOUND CARE:44984} Medical Equipment/Supplies to help you at home: {MEDICAL SUPPLIES:11661} Patient's medications returned: {N/A:03464} Help arranged for you Home Health/Receiving Agency: {HOME HEALTH/RECEIVING AGENCY:70647} Other preprinted instructions reviewed and given: {PREPRINTED DISCHARGE INSTRUCTIONS:35513} Follow-Up Care: Call to schedule your appointment with in {NUMBERS 0 - 7:205301} weeks, Phone Blood work needed: X-rays needed: Reminded patient that they can VIEW, DOWNLOAD and TRANSMIT their hospital information in [facility]: {YES/NO:64} [email or web address]% [email or web address].pdf Smoking: If you or your caregiver smoke, we recommend that you quit. For smoking cessation help, please callthe National Quit Line at . QUESTIONS OR CONCERNS AFTER DISCHARGE Dietitian Home Care Needs *Please Return Patient Satisfaction Survey* documented in this encounter Progress Notes Armand Trujillo FNP-C - 10/13/2019 3:38 PM ESTPATIENT: Samra Garcia : 1930 DATE OF SERVICE: 10/13/2019 Nursing staff contacted myself about changing wound vac and family not letting it done today. I personally spoke with family who stated they are "not refusing changing the dressing but it was completed yesterday by nursing staff. " Daughter states nursing staff changed yesterday under daughters direct supervision. No documentation noted from nursing. Family understands and accepts [facility] changing wound tomorrow. Author: LESLYE Guidry 10/13/2019 15:38 Garland Samuel MD - 10/13/2019 7:53 AM EST [facility] [address]. [id number] Medical Surgical Trauma & ACS Progress Note Date of Service: 10/13/2019 Date of Admission: 10/05/19 Patient: Samra Lentz #: [id number] Attending: JOAQUIN LAROSE MD ,MD Interval Present History: No acute events overnight. Adequate pain/nausea control. Getting OOB Vitals: Blood pressure 158/82, pulse 69, temperature 97.8 F (36.6 C), temperature source Temporal, resp. rate 20, height 5' 2" (1.575 m), weight 115 lb (52.2 kg), SpO2 98 %. SaO2% on 3 L/min I/O: Date 10/12/19699 - 10/13/19 0659 10/13/19 07 - 10/14/19 0659 Shift 3078-0974 8180-6505 8688-7766 24 Hour Total 7354-4221 9712-2673 1263-3690 24 Hour Total INTAKE P.O. 690 690 Shift Total(mL/kg) 690(13.23) 690(13.23) OUTPUT Shift Total(mL/kg) Weight (kg) 52.16 52.16 52.16 52.16 52.16 52.16 52.16 52.16 Medications: Current Facility-Administered Medications Medication enoxaparin (LOVENOX) injection 40 mg/0.4 mL 40 mg HYDROcodone-acetaminophen (LORTAB) oral solution 7.5-325 MG/15ML HYDROmorphone (DILAUDID) syringe 0.5 mg nalbuphine (NUBAIN) injection 2.5 mg naloxone (NARCAN) injection 0.1 mg pantoprazole (PROTONIX) injection 40 mg phenol (CHLORASEPTIC) mouth/throat spray 1.4 % General: No acute distress Lungs: unlabored respirations Abd: Decreased distension, still only expected incisional tenderness; wound vac in place and functioning Labs: No results found for: WBC, HGB, HCT, PLAT Sodium Date Value Ref Range Status 10/12/2019 137 134 - 145 mmol/L Final Potassium Date Value Ref Range Status 10/12/2019 3.7 3.5 - 5.1 mmol/L Final Chloride Date Value Ref Range Status 10/12/2019 105 98 - 107 mmol/L Final CO2 Date Value Ref Range Status 10/12/2019 31 (H) 22 - 30 mmol/L Final Glucose Date Value Ref Range Status 10/12/2019 146 (H) 70 - 99 mg/dl Final BUN Date Value Ref Range Status 10/12/2019 8 7 - 17 mg/dl Final Creatinine Date Value Ref Range Status 10/12/2019 0.6 (L) 0.7 - 1.2 mg/dl Final Calcium Date Value Ref Range Status 10/12/2019 8.3 8.3 - 10.1 mg/dl Final Calcium Date Value Ref Range Status 10/12/2019 8.3 8.3 - 10.1 mg/dl Final Magnesium Date Value Ref Range Status 10/12/2019 2.0 1.6 - 2.3 MG/DL Final No results found for: INR BS: Lines/Drains: none Assessment and Plan: She is 89 years old female transferred from [facility] for small bowel obstruction. She does not have previous history of abdominal surgeries. Patient taken to the OR 10/05/19for exploratory laparotomy where she was found to have a closed loop bowel obstruction and underwentreduction of internal hernia and closed loop small bowel obstruction with wound vac placed, then again on 10/06/19 with fascial closure/wound vac placed Closed loop bowel obstruction s/p exlap with reduction of internal hernia (POD8 ) and 2nd loop laparotomy with fascial closure (POD7) - Regular diet - Home with home health care including for wound vac changes M/W/F as soon as disposition can be arranged - Ensure sufficient analgesia with remaining regimen ordered to facilitate patient comfort/normalization activities - Patient must be OOB as much as possible Problems: DVT Prophylaxis: SCDs/SQ-Lovenox GI Prophylaxis: Protonix Nutrition: NPO currently Ortiz remains in place for the following reason(s): None present Author: Dimitry Babcock MD Attending Note: I have had a sbvi-kb-pnss encounter with the patient on 10/13/2019 at approximately 10:30 hours. I have reviewed the interval data in the EMR, with which I substantially concur. Corrections and additions have been made to the note above and below. Together we have instituted a plan of care. Patient is ambulatory, tolerating a diet, and having bowel function. Her pain is well controlled And she is a suitable candidate for discharge home with family assist. Garland Pandey MD FACS Trauma & Acute Care Surgery [facility] 10/13/2019 20:33 Garland Samuel MD - 10/12/2019 6:00 AM EST [facility] [address]. [id number] Medical Surgical Trauma & ACS Progress Note Date of Service: 10/12/2019 Date of Admission: 10/05/19 Patient: Samra Lentz #: [id number] Attending: JOAQUIN LAROSE MD ,MD Interval Present History: No acute events overnight. Less bloating per pt. Adequate pain/nausea control. Getting OOB some more Vitals: Blood pressure 117/61, pulse 70, temperature 97.4 F (36.3 C), temperature source Temporal, resp. rate 16, height 5' 2" (1.575 m), weight 115 lb (52.2 kg), SpO2 93 %. SaO2% on 3 L/min I/O: Date 10/11/19699 - 10/12/1965810/12/19699 - 10/13/19 0659 Shift 7385-5922 3347-5088 9439-0392 24 Hour Total 9338-9158 2173-3302 0507-1622 24 Hour Total INTAKE Shift Total(mL/kg) OUTPUT Drains 150 150 Shift Total(mL/kg) 150(2.88) 150(2.88) Weight (kg) 52.16 52.16 52.16 52.16 52.16 52.16 52.16 52.16 Medications: Current Facility-Administered Medications Medication dextrose 5% and lactated ringers IV enoxaparin (LOVENOX) injection 40 mg/0.4 mL 40 mg HYDROcodone-acetaminophen (LORTAB) oral solution 7.5-325 MG/15ML HYDROmorphone (DILAUDID) syringe 0.25 mg HYDROmorphone (DILAUDID) syringe 0.5 mg nalbuphine (NUBAIN) injection 2.5 mg naloxone (NARCAN) injection 0.1 mg pantoprazole (PROTONIX) injection 40 mg phenol (CHLORASEPTIC) mouth/throat spray 1.4 % potassium bicarb-citric acid (EFFER-K) effervescent tablet (for oral solution) 20 mEq General: No acute distress Lungs: unlabored respirations Abd: Decreased distension, still only expected incisional tenderness; wound vac in place and functioning Labs: No results found for: WBC, HGB, HCT, PLAT Sodium Date Value Ref Range Status 10/12/2019 137 134 - 145 mmol/L Final Potassium Date Value Ref Range Status 10/12/2019 3.7 3.5 - 5.1 mmol/L Final Chloride Date Value Ref Range Status 10/12/2019 105 98 - 107 mmol/L Final CO2 Date Value Ref Range Status 10/12/2019 31 (H) 22 - 30 mmol/L Final Glucose Date Value Ref Range Status 10/12/2019 146 (H) 70 - 99 mg/dl Final BUN Date Value Ref Range Status 10/12/2019 8 7 - 17 mg/dl Final Creatinine Date Value Ref Range Status 10/12/2019 0.6 (L) 0.7 - 1.2 mg/dl Final Calcium Date Value Ref Range Status 10/12/2019 8.3 8.3 - 10.1 mg/dl Final Calcium Date Value Ref Range Status 10/12/2019 8.3 8.3 - 10.1 mg/dl Final Magnesium Date Value Ref Range Status 10/12/2019 2.0 1.6 - 2.3 MG/DL Final No results found for: INR BS: Lines/Drains: none Assessment and Plan: She is 89 years old female transferred from [facility] for small bowel obstruction. She does not have previous history of abdominal surgeries. Patient taken to the OR 10/05/19for exploratory laparotomy where she was found to have a closed loop bowel obstruction and underwentreduction of internal hernia and closed loop small bowel obstruction with wound vac placed, then again on 10/06/19 with fascial closure/wound vac placed Closed loop bowel obstruction s/p exlap with reduction of internal hernia (POD7 ) and 2nd loop laparotomy with fascial closure (POD6) - Regular diet - Patient/family deciding upon rehab vs home - if home will require wound vac to be set up for use/changes there - Ensure sufficient analgesia with remaining regimen ordered to facilitate patient comfort/normalization activities - Patient must be OOB as much as possible - Replete electrolytes PRN (today hypomagnesemia/hypokalemia) Problems: DVT Prophylaxis: SCDs/SQ-Lovenox GI Prophylaxis: Protonix Nutrition: NPO currently Ortiz remains in place for the following reason(s): None present Author: Dimitry Babcock MD Attending Note: I have had a xmya-xa-ynqj encounter with the patient on 10/12/2019 at approximately 09:30 hours. I have reviewed the interval data in the EMR, with which I substantially concur. Corrections and additions have been made to the note above and below. Together we have instituted a plan of care. Patient is less distended. NG tube was removed and she has been resumed on a diet. Disposition is pending but the patient and her family want to go home with family assist. This is a viable option as the patient is small, easy to transfer, and fairly vigorous. iif all goes well with her diet today, anticipate discharge tomorrow. Garland Pandey MD FACS Trauma & Acute Care Surgery [facility] 10/13/2019 20:32 Garland Samuel MD - 10/10/2019 11:10 AM EST [facility] Brian Prasad. [id number] Medical Surgical Trauma & ACS Progress Note Date of Service: 10/10/2019 Date of Admission: 10/05/19 Patient: Samra Lentz #: [id number] Attending: JOAQUIN LAROSE MD ,MD Interval Present History: No acute events overnight. Still feels bloated. Adequate pain/nausea control. Has not been OOB sufficiently Vitals: Blood pressure 154/80, pulse 72, temperature 98.7 F (37.1 C), temperature source Temporal, resp. rate 21, height 5' 2" (1.575 m), weight 115 lb (52.2 kg), SpO2 98 %. SaO2% on 3 L/min I/O: Date 10/09/19 0700 - 10/10/19 0659 10/10/19 0700 - 10/11/19 0659 Shift 5814-7451 8835-3074 4048-9293 24 Hour Total 4103-6371 8301-5989 0648-7626 24 Hour Total INTAKE P.O. 0 0 150 150 I.V.(mL/kg/hr) 9.7(0.02) 9.7(0.01) 901 901 Shift Total(mL/kg) 9.7(0.19) 9.7(0.19) 1051(20.15) 1051(20.15) OUTPUT Urine(mL/kg/hr) 200(0.48) 200(0.16) Drains 75 75 Shift Total(mL/kg) 200(3.83) 200(3.83) 75(1.44) 75(1.44) Weight (kg) 52.16 52.16 52.16 52.16 52.16 52.16 52.16 52.16 Medications: Current Facility-Administered Medications Medication dextrose 5% and lactated ringers IV enoxaparin (LOVENOX) injection 40 mg/0.4 mL 40 mg HYDROcodone-acetaminophen (LORTAB) oral solution 7.5-325 MG/15ML HYDROmorphone (DILAUDID) syringe 0.25 mg HYDROmorphone (DILAUDID) syringe 0.5 mg nalbuphine (NUBAIN) injection 2.5 mg naloxone (NARCAN) injection 0.1 mg pantoprazole (PROTONIX) injection 40 mg phenol (CHLORASEPTIC) mouth/throat spray 1.4 % General: No acute distress Lungs: unlabored respirations Abd: Remains distended and tympanic, still only expected incisional tenderness; wound vac in place and functioning Labs: WBC Count Date Value Ref Range Status 10/09/2019 9.46 3.98 - 10.04 K/uL Final Comment: Methodology was changed 12/02/2018. Please note updated reference range and units. Hemoglobin Date Value Ref Range Status 10/09/2019 13.3 11.2 - 15.7 g/dL Final Hematocrit Date Value Ref Range Status 10/09/2019 41.6 34.1 - 44.9 % Final Platelet Count Date Value Ref Range Status 10/09/2019 172 (L) 182 - 369 K/uL Final Sodium Date Value Ref Range Status 10/10/2019 144 134 - 145 mmol/L Final Potassium Date Value Ref Range Status 10/10/2019 3.6 3.5 - 5.1 mmol/L Final Chloride Date Value Ref Range Status 10/10/2019 111 (H) 98 - 107 mmol/L Final CO2 Date Value Ref Range Status 10/10/2019 28 22 - 30 mmol/L Final Glucose Date Value Ref Range Status 10/10/2019 134 (H) 70 - 99 mg/dl Final BUN Date Value Ref Range Status 10/10/2019 18 (H) 7 - 17 mg/dl Final Creatinine Date Value Ref Range Status 10/10/2019 0.7 0.7 - 1.2 mg/dl Final Calcium Date Value Ref Range Status 10/10/2019 8.2 (L) 8.3 - 10.1 mg/dl Final Calcium Date Value Ref Range Status 10/10/2019 8.2 (L) 8.3 - 10.1 mg/dl Final Magnesium Date Value Ref Range Status 10/10/2019 2.0 1.6 - 2.3 MG/DL Final INR Date Value Ref Range Status 10/09/2019 0.97 0.88 - 1.13 Ratio Final Comment: INR Therapeutic Range: 2.0 - 3.5 BS: Lines/Drains: none Core Measures: DVT Prophylaxis: heparin and venodynes GI Prophylaxis: not indicated Nutrition: NPO Ortiz Remains in place for the following reason(s): no ortiz Assessment and Plan: She is 89 years old female transferred from [facility] for small bowel obstruction. She does not have previous history of abdominal surgeries. Patient taken to the OR 10/05/19for exploratory laparotomy where she was found to have a closed loop bowel obstruction and underwentreduction of internal hernia and closed loop small bowel obstruction with wound vac placed, then again on 10/06/19 with fascial closure/wound vac placed Closed loop bowel obstruction s/p exlap with reduction of internal hernia (POD5 ) and 2nd loop laparotomy with fascial closure (POD4) - Continue NGT/NPO currently given distension - Change mIVF to D5 formulation to minimize protein catabolism - Discontinue epidural, ensure sufficient analgesia with remaining regimen ordered to facilitate patient comfort/normalization activities - Patient must be OOB as much as possible Problems: DVT Prophylaxis: SCDs/SQ-Lovenox GI Prophylaxis: Protonix Nutrition: NPO currently Ortiz remains in place for the following reason(s): None present Author: Dimitry Babcock MD Attending Note: I have had a zmyz-og-dbbd encounter with the patient on 10/10/2019 at approximately 09:30 hours. I have reviewed the interval data in the EMR, with which I substantially concur. Corrections and additions have been made to the note above and below. Together we have instituted a plan of care. The patient is less distended today and did have a bowel movement. We will continue the NG tube another day but allow some sips of clears around the NG tube. Garland Pandey MD FACS Trauma & Acute Care Surgery [facility] 10/13/2019 20:30 Alison Bourgeois MD - 10/10/2019 10:11 AM [facility] Brian Prasad. [id number] Epidural Catheters Progress Note Date of Service: 10/10/2019 Time: 10:11 Patient: Samra Garcia B #: [id number] Epidural Medication: Fentanyl 2 mcg with Ropivacaine 0.1% Pump Settings: Basal Rate (ml/hr): 4 Patient controlled epidural analgesic (PCEA): 4 ml/20 min Catheter Location: Thoracic 10 Depth: 15 cm Assessment: Pain (0-10): @ rest: 0 With activity: 0 Pain Location: Abdomen Sensory: Intact Motor: Intact LOC: Alert Site Assessment: Site non-tender, free of redness, swelling or exudate: yes Other Pain Medications: Hydromorphone Side Effects: Pruritis: no Nausea: no Catheter day: 6 Plan/Comments: d/c epidural Anesthesiologist: Alison Bravo MD PROGRESS NOTE [address] [address] Date of Service: 10/10/2019 Patient: Samra Herreracell B#: [id number] Attending: JOAQUIN LAROSE MD ,MD Subjective Temp: [97.4 F (36.3 C)-98.7 F (37.1 C)] 98.7 F (37.1 C) Pulse: [59-98] 72 Resp: [14-21] 21 BP: (131-162)/(63-81) 154/80 I/O last 3 completed shifts: In: 9.7 [I.V.:9.7] Out: 200 [Urine:200] I/O this shift: In: 1051 [P.O.:150; I.V.:901] Out: 75 [Drains:75] Objective Principal Problem: SBO (small bowel obstruction) (HCC) Active Problems: Hypomagnesemia Hyperglycemia Choledocholithiasis NSTEMI (non-ST elevated myocardial infarction) (HCC) Acute respiratory insufficiency, postoperative 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 Ileus (HCC) Hypovolemia Assessment & Plan Author: Alison Bravo MD Mario Alberto Limon MD - 10/09/2019 9:54 AM ESTDate of Service:10/08/2019 Time:08:00 Patient:Samra Lentz #:[id number] Epidural Medication:Fentanyl 2 mcg with Ropivacaine 0.1% Pump Settings: Basal Rate (ml/hr):4 Patient controlled epidural analgesic (PCEA):4 ml/20 min Catheter Location:[id number] Depth:156cm Assessment: Pain (0-10): @ rest:1 With activity:2 Pain Location:n/a Sensory:unable to assess Motor:unable to assess LOC:sleeping Site Assessment: Site non-tender, free of redness, swelling or exudate:unable to assess Other Pain Medications:none Side Effects: Pruritis:no Nausea:no Catheter day:5 Plan/Comments:Continue PCEA Garland Samuel MD - 10/09/2019 9:47 AM EST [facility] Brian Prasad. [id number] Medical Surgical Trauma & ACS Progress Note Date of Service: 10/09/2019 Date of Admission: 10/05/19 Patient: Samra Lentz #: [id number] Attending: JOAQUIN LAROSE MD ,MD Interval Present History: Transferred from 7ICU to the floor. Had emesis overnight. Vitals: Blood pressure 176/74, pulse 81, temperature 98.6 F (37 C), temperature source Temporal, resp. rate 16, height 5' 2" (1.575 m), weight 115 lb (52.2 kg), SpO2 95 %. SaO2% on 3 L/min I/O: Date 10/08/19699 - 10/09/19 0659 10/09/19 07 - 10/10/19 0659 Shift 8009-8331 0624-1329 8476-8996 24 Hour Total 8313-0411 3294-4233 4216-3440 24 Hour Total INTAKE P.O. 100 100 I.V.(mL/kg/hr) 65.5(0.16) 65.5(0.05) Shift Total(mL/kg) 65.5(1.26) 100(1.92) 165.5(3.17) OUTPUT Urine(mL/kg/hr) 175(0.42) 175(0.14) Shift Total(mL/kg) 175(3.35) 175(3.35) Weight (kg) 52.16 52.16 52.16 52.16 52.16 52.16 52.16 52.16 Medications: Current Facility-Administered Medications Medication enoxaparin (LOVENOX) injection 40 mg/0.4 mL 40 mg FentaNYL 2 mcg/mL and ropivacaine 0.1% epidural 200 ml HYDROcodone-acetaminophen (LORTAB) oral solution 7.5-325 MG/15ML HYDROmorphone (DILAUDID) syringe 0.25 mg HYDROmorphone (DILAUDID) syringe 0.5 mg lactated ringers IV nalbuphine (NUBAIN) injection 2.5 mg naloxone (NARCAN) injection 0.1 mg pantoprazole (PROTONIX) injection 40 mg phenol (CHLORASEPTIC) mouth/throat spray 1.4 % General: No acute distress Lungs: unlabored respirations Abd: distended and tympanic, expected incisional tenderness; wound vac in place and functioning Labs: WBC Count Date Value Ref Range Status 10/09/2019 9.46 3.98 - 10.04 K/uL Final Comment: Methodology was changed 12/02/2018. Please note updated reference range and units. Hemoglobin Date Value Ref Range Status 10/09/2019 13.3 11.2 - 15.7 g/dL Final Hematocrit Date Value Ref Range Status 10/09/2019 41.6 34.1 - 44.9 % Final Platelet Count Date Value Ref Range Status 10/09/2019 172 (L) 182 - 369 K/uL Final Sodium Date Value Ref Range Status 10/09/2019 144 134 - 145 mmol/L Final Potassium Date Value Ref Range Status 10/09/2019 3.7 3.5 - 5.1 mmol/L Final Chloride Date Value Ref Range Status 10/09/2019 111 (H) 98 - 107 mmol/L Final CO2 Date Value Ref Range Status 10/09/2019 24 22 - 30 mmol/L Final Glucose Date Value Ref Range Status 10/09/2019 203 (H) 70 - 99 mg/dl Final BUN Date Value Ref Range Status 10/09/2019 21 (H) 7 - 17 mg/dl Final Creatinine Date Value Ref Range Status 10/09/2019 0.8 0.7 - 1.2 mg/dl Final Calcium Date Value Ref Range Status 10/09/2019 8.8 8.3 - 10.1 mg/dl Final Calcium Date Value Ref Range Status 10/09/2019 8.8 8.3 - 10.1 mg/dl Final Magnesium Date Value Ref Range Status 10/09/2019 2.2 1.6 - 2.3 MG/DL Final INR Date Value Ref Range Status 10/09/2019 0.97 0.88 - 1.13 Ratio Final Comment: INR Therapeutic Range: 2.0 - 3.5 BS: Glucometer result (ref: 70-99): (!) 117(Performed at: [facility] POCT Hari Matthews MD, Laboratory [employer] Counsel[employer] [address] [id number]) Lines/Drains: none Core Measures: DVT Prophylaxis: heparin and venodynes GI Prophylaxis: not indicated Nutrition: NPO Ortiz Remains in place for the following reason(s): no ortiz Assessment and Plan: She is 89 years old female transferred from [facility] for small bowel obstruction. She does not have previous history of abdominal surgeries. Patient taken to the OR for exploratory laparotomy where she was found to have a closed loop bowel obstruction. 1. Closed loop bowel obstruction s/p exlap with reduction of internal hernia ( POD 4) and 2nd loop laparotomy with fascial closure (POD3)- emesis overnight and is now significantly distended. Will place NGT and resume IVF. Author: Sarwat Marie PA-C Attending Note: I have had a iddn-nt-cpvs encounter with the patient on 10/09/2019 at approximately 09:30 hours. I have reviewed the interval data in the EMR, with which I substantially concur. Corrections and additions have been made to the note above and below. Together we have instituted a plan of care. Patient was transferred out of the ICU yesterday to the intermediate care unit. She vomited and has a slightly distended abdomen indicative of postoperative ileus. I have ordered nasogastric tube replaced to intermittent low wall suction until the ileus resolves. I explained to the family that this zuleika common postoperative occurrence and will take usually between 5-7 days for resolution of the ileus. They expressed understanding. Garland Pandey MD FACS Trauma & Acute Care Surgery [facility] 10/13/2019 20:29 Sarwat Felix PA-C - 10/08/2019 11:14 AM EST [facility] Brian Prasad. [id number] Medical Surgical Trauma & ACS Progress Note Date of Service: 10/08/2019 Date of Admission: 10/05/19 Patient: Samra Lentz #: [id number] Attending: JOAQUIN LAROSE MD ,MD Interval Present History: No major events overnight. No new complaints. Pain reasonably well controlled. Had BM, NGT removed. Vitals: Blood pressure 110/55, pulse 86, temperature 97 F (36.1 C), temperature source Temporal, resp. rate 24, height 5' 2" (1.575 m), weight 115 lb (52.2 kg), SpO2 98 %. SaO2% on 3 L/min I/O: Date 10/07/19 07 - 10/08/19 0659 10/08/19 07 - 10/09/19 0659 Shift 6745-9757 0497-2151 9547-5517 24 Hour Total 5619-7770 3435-0145 4651-1656 24 Hour Total INTAKE P.O. 400 200 150 750 I.V.(mL/kg/hr) 561.4(1.35) 473.1(1.13) 349.3(0.84) 1383.8(1.11) Shift Total(mL/kg) 961.4(18.43) 673.1(12.9) 499.3(9.57) 2133.8(40.91) OUTPUT Urine(mL/kg/hr) 355(0.85) 250(0.6) 350(0.84) 955(0.76) Drains 320 320 Shift Total(mL/kg) 675(12.94) 250(4.79) 350(6.71) 1275(24.44) Weight (kg) 52.16 52.16 52.16 52.16 52.16 52.16 52.16 52.16 Medications: Current Facility-Administered Medications Medication enoxaparin (LOVENOX) injection 40 mg/0.4 mL 40 mg FentaNYL 2 mcg/mL and ropivacaine 0.1% epidural 200 ml HYDROcodone-acetaminophen (LORTAB) oral solution 7.5-325 MG/15ML HYDROmorphone (DILAUDID) syringe 0.25 mg HYDROmorphone (DILAUDID) syringe 0.5 mg lactated ringers IV nalbuphine (NUBAIN) injection 2.5 mg naloxone (NARCAN) injection 0.1 mg ondansetron (ZOFRAN) injection 4 mg General: No acute distress Heart: sinus on monitor Lungs: unlabored respirations Abd: soft, ND, expected incisional tenderness; wound vac in place and functioning Labs: WBC Count Date Value Ref Range Status 10/07/2019 7.71 3.98 - 10.04 K/uL Final Comment: Methodology was changed 12/02/2018. Please note updated reference range and units. Hemoglobin Date Value Ref Range Status 10/07/2019 12.5 11.2 - 15.7 g/dL Final Hematocrit Date Value Ref Range Status 10/07/2019 40.5 34.1 - 44.9 % Final Platelet Count Date Value Ref Range Status 10/07/2019 134 (L) 182 - 369 K/uL Final Sodium Date Value Ref Range Status 10/07/2019 144 134 - 145 mmol/L Final Potassium Date Value Ref Range Status 10/07/2019 4.0 3.5 - 5.1 mmol/L Final Chloride Date Value Ref Range Status 10/07/2019 119 (H) 98 - 107 mmol/L Final CO2 Date Value Ref Range Status 10/07/2019 20 (L) 22 - 30 mmol/L Final Glucose Date Value Ref Range Status 10/07/2019 109 (H) 70 - 99 mg/dl Final BUN Date Value Ref Range Status 10/07/2019 18 (H) 7 - 17 mg/dl Final Creatinine Date Value Ref Range Status 10/07/2019 0.8 0.7 - 1.2 mg/dl Final Calcium Date Value Ref Range Status 10/07/2019 7.8 (L) 8.3 - 10.1 mg/dl Final Calcium Date Value Ref Range Status 10/07/2019 7.8 (L) 8.3 - 10.1 mg/dl Final Magnesium Date Value Ref Range Status 10/07/2019 2.2 1.6 - 2.3 MG/DL Final No results found for: INR BS: Radiology: KUB pending Lines/Drains: NGT Core Measures: DVT Prophylaxis: heparin and venodynes GI Prophylaxis: not indicated Nutrition: NPO Ortiz Remains in place for the following reason(s): post-op for urine monitoring Assessment and Plan: She is 89 years old female transferred from [facility] for small bowel obstruction. She does not have previous history of abdominal surgeries. Patient taken to the OR for exploratory laparotomy where she was found to have a closed loop bowel obstruction. 1. Closed loop bowel obstruction s/p exlap with reduction of internal hernia ( POD 3) and 2nd loop laparotomy with fascial closure (POD2)- NGT removed yesterday. Had BM. Start clear liquids. Vac changed today. Will d/c ortiz. Decrease epidural and start oral pain medications. Transfer to the floor. Author: Sarwat Marie PA-C Associated attestation - Ian Ocampo MD - 10/10/2019 9:58 PM ESTPatient was personally seen and examined. I substantially agree with the resident's observations and assessments. I have reviewed the pertinent imaging studies and laboratory data and have discussed these results with the patient. Additional Comments: Doing well. Ok to transfer to the floor. Attending: Ian Ocampo MD 10/10/2019 21:57 Mario Alberto Remy MD - 10/08/2019 10:57 AM ESTDate of Service: 10/08/2019 Time: 08:00 Patient: Samra Lentz #: [id number] Epidural Medication: Fentanyl 2 mcg with Ropivacaine 0.1% Pump Settings: Basal Rate (ml/hr): 4 Patient controlled epidural analgesic (PCEA): 4 ml/20 min Catheter Location: Thoracic 10 Depth: 156cm Assessment: Pain (0-10): @ rest: 0 With activity: 1 Pain Location: n/a Sensory: unable to assess Motor: unable to assess LOC: sleeping Site Assessment: Site non-tender, free of redness, swelling or exudate: unable to assess Other Pain Medications: none Side Effects: Pruritis: no Nausea: no Catheter day: 4 Plan/Comments: Continue PCEA Sarwat Felix PA-C - 10/07/2019 10:40 AM EST [facility] Brian Prasad. [id number] Medical Surgical Trauma & ACS Progress Note Date of Service: 10/07/2019 Date of Admission: 10/05/19 Patient: Samra Lentz #: [id number] Attending: JOAQUIN LAROSE MD ,MD Interval Present History: No major events overnight. Transferred from [facility] to [facility]. No new complaints. Pain reasonably well controlled. Vitals: Blood pressure 132/60, pulse 91, temperature 97 F (36.1 C), temperature source Temporal, resp. rate 22, height 5' 2" (1.575 m), weight 115 lb (52.2 kg), SpO2 100 %. SaO2% on 4 L/min I/O: Date 10/06/19 07 - 10/07/19 0659 10/07/19 07 - 10/08/19 0659 Shift 8019-7690 0500-1737 4924-1236 24 Hour Total 6720-5822 0910-5757 8780-3688 24 Hour Total INTAKE P.O. 100 100 I.V.(mL/kg/hr) 2827(6.77) 1797(4.31) 1175.9(2.82) 5799.9(4.63) Shift Total(mL/kg) 2827(54.2) 1897(36.37) 1175.9(22.54) 5899.9(113.1) OUTPUT Urine(mL/kg/hr) 165(0.4) 325(0.78) 434(1.04) 924(0.74) 130 130 Drains 300 130 0 430 0 0 Blood 25 25 Shift Total(mL/kg) 465(8.91) 480(9.2) 434(8.32) 1379(26.44) 130(2.49) 130(2.49 ) Weight (kg) 52.16 52.16 52.16 52.16 52.16 52.16 52.16 52.16 Medications: Current Facility-Administered Medications Medication FentaNYL 2 mcg/mL and ropivacaine 0.1% epidural 200 ml heparin injection 5000 UNIT/ML HYDROmorphone (DILAUDID) syringe 0.25 mg HYDROmorphone (DILAUDID) syringe 0.5 mg lactated ringers IV nalbuphine (NUBAIN) injection 2.5 mg naloxone (NARCAN) injection 0.1 mg ondansetron (ZOFRAN) injection 4 mg General: No acute distress Heart: sinus on monitor Lungs: unlabored respirations Abd: soft, ND, expected incisional tenderness; wound vac in place and functioning; NGT in place- clamped from gastrografin challenge Labs: WBC Count Date Value Ref Range Status 10/07/2019 7.71 3.98 - 10.04 K/uL Final Comment: Methodology was changed 12/02/2018. Please note updated reference range and units. 10/05/2019 11.34 (H) 3.98 - 10.04 K/uL Final Hemoglobin Date Value Ref Range Status 10/07/2019 12.5 11.2 - 15.7 g/dL Final Hematocrit Date Value Ref Range Status 10/07/2019 40.5 34.1 - 44.9 % Final Platelet Count Date Value Ref Range Status 10/07/2019 134 (L) 182 - 369 K/uL Final Sodium Date Value Ref Range Status 10/07/2019 144 134 - 145 mmol/L Final Potassium Date Value Ref Range Status 10/07/2019 4.0 3.5 - 5.1 mmol/L Final Chloride Date Value Ref Range Status 10/07/2019 119 (H) 98 - 107 mmol/L Final CO2 Date Value Ref Range Status 10/07/2019 20 (L) 22 - 30 mmol/L Final Glucose Date Value Ref Range Status 10/07/2019 109 (H) 70 - 99 mg/dl Final BUN Date Value Ref Range Status 10/07/2019 18 (H) 7 - 17 mg/dl Final Creatinine Date Value Ref Range Status 10/07/2019 0.8 0.7 - 1.2 mg/dl Final Calcium Date Value Ref Range Status 10/07/2019 7.8 (L) 8.3 - 10.1 mg/dl Final Alkaline Phosphatase Date Value Ref Range Status 10/05/2019 89 40 - 150 U/L Final Calcium Date Value Ref Range Status 10/07/2019 7.8 (L) 8.3 - 10.1 mg/dl Final Magnesium Date Value Ref Range Status 10/07/2019 2.2 1.6 - 2.3 MG/DL Final INR Date Value Ref Range Status 10/05/2019 1.01 0.88 - 1.13 Ratio Final Comment: INR Therapeutic Range: 2.0 - 3.5 BS: Glucometer result (ref: 99): 93(Performed at: [facility] POCT Hari Matthews MD, Laboratory [employer] [address] [place] [address]) Radiology: KUB pending Lines/Drains: NGT Core Measures: DVT Prophylaxis: heparin and venodynes GI Prophylaxis: not indicated Nutrition: NPO Ortiz Remains in place for the following reason(s): post-op for urine monitoring Assessment and Plan: She is 89 years old female transferred from [facility] for small bowel obstruction. She does not have previous history of abdominal surgeries. Patient taken to the OR for exploratory laparotomy where she was found to have a closed loop bowel obstruction. 1. Closed loop bowel obstruction s/p exlap with reduction of internal hernia ( POD 2) and 2nd loop laparotomy with fascial closure (POD1)- Check KUB this AM to follow contrast progress. Will remove NGT once patient is passing flatus. OK for sips/chips/popsicles with NGT back on suction. Due for wound vac change tomorrow. Discussed care with patient and sons at bedside. Author: Sarwat Marie PA-C Associated attestation - Ian Ocampo MD - 10/10/2019 9:57 PM ESTPatient was personally seen and examined. I substantially agree with the resident's observations and assessments. I have reviewed the pertinent imaging studies and laboratory data and have discussed these results with the patient. Additional Comments: No acute issues. Await return of bowel function Attending: Ian Ocampo MD 10/10/2019 21:57 Axel Palencia MD - 10/07/2019 8:00 AM [facility] Brian Prasad. [id number] Epidural Catheters Progress Note Date of Service: 10/07/2019 Time: 08:00 Patient: Samra Lentz #: [id number] Epidural Medication: Fentanyl 2 mcg with Ropivacaine 0.1% Pump Settings: Basal Rate (ml/hr): 4 Patient controlled epidural analgesic (PCEA): 4 ml/20 min Catheter Location: Thoracic 10 Depth: 156cm Assessment: Pain (0-10): @ rest: 0 With activity: 0 Pain Location: n/a Sensory: unable to assess Motor: unable to assess LOC: sleeping Site Assessment: Site non-tender, free of redness, swelling or exudate: unable to assess Other Pain Medications: none Side Effects: Pruritis: no Nausea: no Catheter day: 1 Plan/Comments: Continue PCEA Anesthesiologist: Axel Palencia MD Gee Garcia MD - 10/06/2019 1:33 PM ESTResponse to documentation query. Addendum to HP dated 10/05/2019 Family hx is non contributory to current presentation No past medical hx No past surgical hx No allergies No medication use Does not use alcohol, recreational drug, does not smoke Gee Johnson MD Ian Leblanc MD - 10/06/2019 1:24 PM JERRY spoke to the patient and the family regarding her surgery today. I obtained consent and am planning for a washout and closure. Washout means an exploratory laparotomy and this is an all inclusive term that can include bowel resection. Ian Ocampo MD Garland Samuel MD - 10/06/2019 6:50 AM [facility] [address]. [id number] Trauma Critical Care Progress Note Date of Service: 10/06/2019 Date of Admission: 10/05/19 Patient: Samra Lentz #: [id number] Attending: JOAQUIN LAROSE MD ,MD 24 hr events: Patient received x1 L bolus overnight for low urine output with adequate response. She is alert andappropriate, able to make needs known. She reports pain is fairly well controlled on current regimen. Epidural was decreased overnight secondary to lethargy with appropriate response. Afebrile. Deniesnumbness/tingling in lower or upper extremities. Hemodynamic data: BP 116/56 Pulse 72 Temp 97.3 F (36.3 C) (Temporal) Resp 15 Wt 115 lb (52.2 kg) SpO2 98% Labs: I have seen and evaluated the labs this morning. Imaging: No new images. Exam: Gen: No acute distress Neuro & Psych: alert, intermittently disoriented to time, no focal neuro deficits HEENT: NGT in place CV: on monitor NSR 60-70's, SBP 116-130's Resp: non labored, without use of accessory muscles, saturating 98% on 3L nasal cannula Abd: appropriately distended, appropriate tenderness to palpation, AbThera vac in place with 400 ml serosanguinous output over the past 24 hours, left NGT 350 ml output in past 24 hours : Ortiz to gravity drainage UOP 562 ml in past 24 hours Ext: no cyanosis, grossly normal and symmetric tone and ROM Skin: warm/dry Core Measures: DVT Prophylaxis: Venodynes, will start heparin SQ GI Prophylaxis: N/A Nutrition: NPO Ortiz Remains because: Urine output monitoring in a critically ill patient. Assessment: Samra Garcia is a 89-y.o.-year-old female transferred from [facility] on 10/05/19 with concerns for gallstone ileus, she is now PPD 1 s/p ERCP showing gallstones and dilated CBD with a stone in the distal CBD that was removed and POD 1 s/p exploratory laparotomy, reduction of internal hernia and closed SBO,abthera vac placement for dusky bowel. She was transferred to ICU post op for close monitoring. Plan: Neurological: Sedation/Analgesia:Continue epidural at 4 ml/hr along with PRN Dilaudid Cardiovascular: NSTEMI Type II. Troponin peaked at 0.393. Hemodynamically sable. Pulmonary: Acute post op respiratory insufficiency. Continue aggressive pulmonary toileting including IS,cough, and deep breathing exercises. Wean oxygen to maintain saturation > 92%. GI: Acquired feeding disorder. Nutrition consulted. Not appropriate to start feeds at this time.Plan to RTOR today. Likely post operative ileus. Maintain NPO status for now. : Ortiz catheter in place for strict intake and output monitoring. BUN/Cr 25 /0.9. Slightly hypovolemic. Will bolus as needed and monitor end points of resuscitation including blood pressure, heartrate, and urine output. FEN: IVF Will continue crystalloids at 125 ml/hr Replete electrolytes as needed Hypomagnesemia. Repleted. Resolved at this time. Diet: NPO Endocrine: Hyperglycemia with no history of DM likely reactive. Will obtain HA1C with next lab draw. Will continue Regular insulin sliding scale with goal blood sugar < 180. Heme: H & H 14.6/45.5. No evidence of acute bleed, no indication to transfuse Infectious Disease: WBC 8.63. Afebrile. Continue Zosyn at this time Musculoskeletal: ICU mobility protocol. PT/OT when appropriate Disposition: Keep in SICU Author: Mary Laurent NP Pager #: [phone] Attending Note: I have had a [id number] encounter with the patient on 10/06/2019 at approximately 09:00 hours. I have reviewed the interval data in the EMR, with which I substantially concur. Corrections and additions have been made to the note above and below. Together we have instituted a plan of care. Doing well POD #1 after exlap with reduction of internal hernia without resection, and ERCP for choledocholithiasis. Her abdomen was left open with Abthera to facilitate a second look operation as there was some concern about the viability of the bowel after the internal hernia was reduced. The choledocholithiasis was an incidental finding as she was asymptomatic. I don't think she needs a completioncholecystectomy per se, unless the gallbladder is readily accessible during the 2nd operation. Plan is for the patient to return to the operating room today for second look operation and bowel closure.Hopefully small bowel resection will be unnecessary. She was extubated after the first operation site think she will extubate easily after the second one as well. Garland Pandey MD FACS Trauma & Acute Care Surgery [facility] 10/13/2019 20:26 Kami Faustin MD - 10/05/2019 6:30 PM ESTThe ERCP did show a stone in the CBD. This was removed without difficulty. Kami Faustin MD - 10/05/2019 2:55 PM ESTPatient with dilated CBD and stone in the distal duct. Plan ERCP to evaluate adenoma remove. Risks, benefits and alternatives discussed. Patient agrees. documented in this encounter Plan of Treatment Date Type Specialty Care Team Description 10/26/2019 Office Visit Trauma Name Type Priority Associated Diagnoses Date/Time INPT/ED 12 LEAD EKG EKG STAT 10/05/2019 8:36 PM EST Name Type Priority Associated Diagnoses Order Schedule DME-WALKER Referral Routine SBO (small bowel TOMORROW FOR 0600 LABS obstruction) (HCC) for 1 Occurrences starting 10/14/2019 until 10/14/2019 REFER TO HOME Referral Routine Generalized abdominal Ordered: 10/13/2019 HEALTH pain Health Maintenance Due Date Last Done Comments DEPRESSION SCREENING 1944 HIV SCREENING 1947 ZOSTER IMMUNIZATION SERIES (1 of 2) 1982 FALL RISK ASSESSMENT 1997 PNEUMOCOCCAL 65+YRS (1 of 2 - 1997 PCV13) INFLUENZA VACCINE (#1) 2019 HPV IMMUNIZATION SERIES Aged Out No longer eligible based on patient's age to complete this topic MENINGOCOCCAL VACCINE IMM Aged Out No longer eligible based on patient's age to complete this topic documented as of this encounter Procedures Procedure Name Priority Date/Time Associated Comments Diagnosis MAGNESIUM LEVEL Routine 10/12/2019 Results for 3:32 AM EST this procedure are in the results section. BASIC METABOLIC PANEL Routine 10/12/2019 Results for 3:32 AM EST this procedure are in the results section. RAINBOW LAB HOLD TUBES Routine 10/11/2019 Results for 6:57 AM EST this procedure are in the results section. RAINBOW DRAW LAVENDER TOP Routine 10/11/2019 6:57 AM EST MAGNESIUM LEVEL Routine 10/11/2019 Results for 6:57 AM EST this procedure are in the results section. BASIC METABOLIC PANEL Routine 10/11/2019 Results for 6:57 AM EST this procedure are in the results section. RAINBOW LAB HOLD TUBES Routine 10/10/2019 Results for 6:17 AM EST this procedure are in the results section. RAINBOW DRAW LAVENDER TOP Routine 10/10/2019 6:17 AM EST MAGNESIUM LEVEL Routine 10/10/2019 Results for 6:17 AM EST this procedure are in the results section. BASIC METABOLIC PANEL Routine 10/10/2019 Results for 6:17 AM EST this procedure are in the results section. XR CHEST 1 VIEW STAT 10/09/2019 Results for 11:24 AM EST this procedure are in the results section. XR ABDOMEN 1 AP VIEW Routine 10/09/2019 Results for 9:41 AM EST this procedure are in the results section. TYPE AND SCREEN Routine 10/09/2019 Results for 5:10 AM EST this procedure are in the results section. MAGNESIUM LEVEL Routine 10/09/2019 Results for 5:10 AM EST this procedure are in the results section. BASIC METABOLIC PANEL Routine 10/09/2019 Results for 5:10 AM EST this procedure are in the results section. PROTHROMBIN TIME Routine 10/09/2019 Results for 5:10 AM EST this procedure are in the results section. CBC NO DIFFERENTIAL Routine 10/09/2019 Results for 5:10 AM EST this procedure are in the results section. PARTIAL THROMBOPLASTIN TIME Routine 10/09/2019 Results for 5:10 AM EST this procedure are in the results section. HC GLUCOSE, BY MONITOR Routine 10/08/2019 Results for 12:11 PM EST this procedure are in the results section. XR ABDOMEN 1 AP VIEW Routine 10/07/2019 Results for 11:18 AM EST this procedure are in the results section. XR ABDOMEN 1 AP VIEW Routine 10/07/2019 Results for 5:31 AM EST this procedure are in the results section. MAGNESIUM LEVEL Routine 10/07/2019 Results for 5:19 AM EST this procedure are in the results section. GLYCOHEMOGLOBIN A1C Routine 10/07/2019 Results for 5:19 AM EST this procedure are in the results section. BASIC METABOLIC PANEL Routine 10/07/2019 Results for 5:19 AM EST this procedure are in the results section. CBC NO DIFFERENTIAL Routine 10/07/2019 Results for 5:19 AM EST this procedure are in the results section. HC GLUCOSE, BY MONITOR Routine 10/06/2019 Results for 11:06 PM EST this procedure are in the results section. HC GLUCOSE, BY MONITOR Routine 10/06/2019 Results for 5:49 PM EST this procedure are in the results section. XR ABDOMEN 1 AP VIEW Routine 10/06/2019 Results for 3:44 PM EST this procedure are in the results section. EXPLORATORY LAPAROTOMY, Planned Trip 10/06/2019 POSSIBLE BOWEL RESECTION to OR 1:34 PM EST HC GLUCOSE, BY MONITOR Routine 10/06/2019 Results for 1:01 PM EST this procedure are in the results section. HC GLUCOSE, BY MONITOR Routine 10/06/2019 Results for 6:20 AM EST this procedure are in the results section. TROPONIN STAT 10/06/2019 Results for 4:38 AM EST this procedure are in the results section. MAGNESIUM LEVEL Routine 10/06/2019 Results for 4:38 AM EST this procedure are in the results section. BASIC METABOLIC PANEL Routine 10/06/2019 Results for 4:38 AM EST this procedure are in the results section. CBC NO DIFFERENTIAL Routine 10/06/2019 Results for 4:38 AM EST this procedure are in the results section. HC GLUCOSE, BY MONITOR Routine 10/05/2019 Results for 11:52 PM EST this procedure are in the results section. HC GLUCOSE, BY MONITOR Routine 10/05/2019 Results for 8:58 PM EST this procedure are in the results section. PATIENT TYPE CONFIRMATION Routine 10/05/2019 8:23 PM EST TROPONIN STAT 10/05/2019 Results for 8:23 PM EST this procedure are in the results section. MAGNESIUM LEVEL STAT 10/05/2019 Results for 8:23 PM EST this procedure are in the results section. BASIC METABOLIC PANEL STAT 10/05/2019 Results for 8:23 PM EST this procedure are in the results section. CBC NO DIFFERENTIAL STAT 10/05/2019 Results for 8:23 PM EST this procedure are in the results section. HC GLUCOSE, BY MONITOR Routine 10/05/2019 Results for 7:27 PM EST this procedure are in the results section. XR ERCP BILIARY AND Routine 10/05/2019 Results for PANCREATIC 5:04 PM EST this procedure are in the results section. ERCP NOTE Routine 10/05/2019 Results for 3:07 PM EST this procedure are in the results section. XR RPH IMAGESTREAM Routine 10/05/2019 Results for 2:50 PM EST this procedure are in the results section. HC GLUCOSE, BY MONITOR Routine 10/05/2019 Results for 2:39 PM EST this procedure are in the results section. ERCP Routine 10/05/2019 2:33 PM EST ENDOSCOPIC RETROGRADE Planned Trip 10/05/2019 CHOLANGIOPANCREATOGRAPHY to OR 2:15 PM EST EXPLORATORY LAPAROTOMY, Planned Trip 10/05/2019 POSSIBLE BOWEL RESECTION to OR 2:15 PM EST CBC WITH DIFFERENTIAL STAT 10/05/2019 Results for 12:44 PM EST this procedure are in the results section. TYPE AND SCREEN STAT 10/05/2019 Results for 12:44 PM EST this procedure are in the results section. MAGNESIUM LEVEL STAT 10/05/2019 Results for 12:44 PM EST this procedure are in the results section. COMPREHENSIVE METABOLIC PANEL STAT 10/05/2019 Results for 12:44 PM EST this procedure are in the results section. BILIRUBIN, DIRECT STAT 10/05/2019 Results for 12:44 PM EST this procedure are in the results section. PROTHROMBIN TIME STAT 10/05/2019 Results for 12:44 PM EST this procedure are in the results section. PARTIAL THROMBOPLASTIN TIME STAT 10/05/2019 Results for 12:44 PM EST this procedure are in the results section. CARDIOLOGY TEST RESULT 10/05/2019 12:00 PM EST SIGN PERMIT 10/05/2019 12:00 PM EST documented in this encounter Results MAGNESIUM LEVEL (10/12/2019 3:32 AM EST) Magnesium 2.0 1.6 - 2.3 MG/DL [facility] Specimen Blood - Blood specimen (specimen) Performing Organization Address City/State/Zipcode Phone Number [facility] [address] [address] [phone] BASIC METABOLIC PANEL (10/12/2019 3:32 AM EST) Glucose 146 (H) 70 - 99 mg/dl [facility] BUN 8 7 - 17 mg/dl [facility] Creatinine 0.6 (L) 0.7 - 1.2 mg/dl [facility] Sodium 137 134 - 145 mmol/L [facility] Potassium 3.7 3.5 - 5.1 mmol/L [facility] Chloride 105 98 - 107 mmol/L [facility] CO2 31 (H) 22 - 30 mmol/L [facility] Calcium 8.3 8.3 - 10.1 mg/dl [facility] eGFR >60 See Interpretation [facility] Comment: Below ml/min/1.73ml GROUP Estimated GFR Interpretation: Sq LABORATORY Above 60ml/min/1.73m2 = Normal Renal Function 30-59 ml/min/1.73m2 = Stage 3 Chronic Kidney Disease 15-29 ml/min/1.73m2 = Stage 4 Chronic Kidney Disease Less than 15 ml/min/1.73m2 = Stage 5 Chronic Kidney Disease The GFR value is calculated using the Modification of Diet in Renal Disease ( MDRD) Study Equation which can be found at: https://www.kidney.org/content/kpmm-qnlet-ucaysvin BUN/Creatinine 13 6 - 22 RAT[facility] Anion Gap 1 (L) 3 - 11 mmol/L [facility] Specimen Blood - Blood specimen (specimen) Performing Organization Address [facility] Phone Number [facility] [address] [address] RAINBOW DRAW LAVENDER TOP (10/11/2019 6:57 AM EST) Specimen Blood - Blood specimen (specimen) Performing Organization Address [facility] Phone Number [facility] [address] [address] MAGNESIUM LEVEL (10/11/2019 6:57 AM EST) Magnesium 1.8 1.6 - 2.3 MG/DL [facility] Specimen Blood - Blood specimen (specimen) Performing Organization Address [facility] Phone Number [facility] [address] [id number] BASIC METABOLIC PANEL (10/11/2019 6:57 AM EST) Glucose 224 (H) 70 - 99 mg/dl [facility] BUN 12 7 - 17 mg/dl [facility] Creatinine 0.6 (L) 0.7 - 1.2 mg/dl [facility] Sodium 142 134 - 145 mmol/L [facility] Potassium 3.4 (L) 3.5 - 5.1 mmol/L [facility] Chloride 107 98 - 107 mmol/L [facility] CO2 31 (H) 22 - 30 mmol/L [facility] Calcium 8.1 (L) 8.3 - 10.1 mg/dl [facility] eGFR >60 See Interpretation [facility] Comment: Below ml/min/1.73ml GROUP Estimated GFR Interpretation: Sq LABORATORY Above 60ml/min/1.73m2 = Normal Renal Function 30-59 ml/min/1.73m2 = Stage 3 Chronic Kidney Disease 15-29 ml/min/1.73m2 = Stage 4 Chronic Kidney Disease Less than 15 ml/min/1.73m2 = Stage 5 Chronic Kidney Disease The GFR value is calculated using the Modification of Diet in Renal Disease ( MDRD) Study Equation which can be found at: https://www.kidney.org/content/bere-dmzfe-jqwslhxv BUN/Creatinine 20 6 - 22 [facility]ATORY Anion Gap 4 3 - 11 mmol/L [facility] Specimen Blood - Blood specimen (specimen) Performing Organization Address [facility] [place] Phone Number [facility] [address] [address] RAINBOW DRAW LAVENDER TOP (10/10/2019 6:17 AM EST) Specimen Blood - Blood specimen (specimen) Performing Organization Address [facility] [place] Phone Number [facility] [address] [address] MAGNESIUM LEVEL (10/10/2019 6:17 AM EST) Magnesium 2.0 1.6 - 2.3 MG/DL [facility] Specimen Blood - Blood specimen (specimen) Performing Organization Address [facility]/Zipcode Phone Number [facility] [address] [place] [address] BASIC METABOLIC PANEL (10/10/2019 6:17 AM EST) Glucose 134 (H) 70 - 99 mg/dl [facility] BUN 18 (H) 7 - 17 mg/dl [facility] Creatinine 0.7 0.7 - 1.2 mg/dl [facility] Sodium 144 134 - 145 mmol/L [facility] Potassium 3.6 3.5 - 5.1 mmol/L [facility] Chloride 111 (H) 98 - 107 mmol/L [facility] CO2 28 22 - 30 mmol/L [facility] Calcium 8.2 (L) 8.3 - 10.1 mg/dl [facility] eGFR >60 See Interpretation [facility] Comment: Below ml/min/1.73ml GROUP Estimated GFR Interpretation: Sq LABORATORY Above 60ml/min/1.73m2 = Normal Renal Function 30-59 ml/min/1.73m2 = Stage 3 Chronic Kidney Disease 15-29 ml/min/1.73m2 = Stage 4 Chronic Kidney Disease Less than 15 ml/min/1.73m2 = Stage 5 Chronic Kidney Disease The GFR value is calculated using the Modification of Diet in Renal Disease ( MDRD) Study Equation which can be found at: https://www.kidney.org/content/dpli-yxujs-scfahibb BUN/Creatinine 26 (H) 6 - 22 [facility]ORY Anion Gap 5 3 - 11 mmol/L [facility] Specimen Blood - Blood specimen (specimen) Performing Organization Address City/State/Zipcode Phone Number [facility] [address] [place] [address] [phone] XR CHEST 1 VIEW (10/09/2019 11:24 AM EST) Specimen Impressions Performed At 1. Nasogastric tube insertion extending into the distal stomach. 2. Minimal increased density at the right lung base mostly represent atelectasis however a new small area of pneumonitis cannot be excluded. THIS DOCUMENT HAS BEEN ELECTRONICALLY SIGNED BY ODILIA POWELL MD Narrative Performed At PROCEDURE INFORMATION: Exam: XR Chest, 1 View Exam date and time: 10/09/2019 10:51 AM Clinical history: 89 years old, female; Indication for study->s/p ng adjustment TECHNIQUE: Imaging protocol: XR of the chest Views: 1 view. COMPARISON: OT XR CHEST 2 VIEW PA AND LATERAL (STANDARD) 10/05/2019 2:55 AM FINDINGS: Tubes, catheters and devices: Nasogastric tube insertion extending into the distal stomach. Lungs: Mild interstitial lung scarring unchanged. Minimal increased density at the right lung base mostly represent atelectasis however a new small area of pneumonitis cannot be excluded. Pleural space: No pleural effusion. No pneumothorax. Heart/Mediastinum: Moderate cardiomegaly unchanged. Bones/joints: Unremarkable. Other findings: No change in increased density in the left retrocardiac region. Procedure Note Interface, Rad Results - 10/09/2019 1:05 PM EST PROCEDURE INFORMATION: Exam: XR Chest, 1 View Exam date and time: 10/09/2019 10:51 AM Clinical history: 89 years old, female; Indication for study->s/p ng adjustment TECHNIQUE: Imaging protocol: XR of the chest Views: 1 view. COMPARISON: OT XR CHEST 2 VIEW PA AND LATERAL (STANDARD) 10/05/2019 2:55 AM FINDINGS: Tubes, catheters and devices: Nasogastric tube insertion extending into the distal stomach. Lungs: Mild interstitial lung scarring unchanged. Minimal increased density at the right lung base mostly represent atelectasis however a new small area of pneumonitis cannot be excluded. Pleural space: No pleural effusion. No pneumothorax. Heart/Mediastinum: Moderate cardiomegaly unchanged. Bones/joints: Unremarkable. Other findings: No change in increased density in the left retrocardiac region. IMPRESSION 1. Nasogastric tube insertion extending into the distal stomach. 2. Minimal increased density at the right lung base mostly represent atelectasis however a new small area of pneumonitis cannot be excluded. THIS DOCUMENT HAS BEEN ELECTRONICALLY SIGNED BY ODILIA POWELL MD XR ABDOMEN 1 AP VIEW (10/09/2019 9:41 AM EST) Specimen Impressions Performed At Interval placement of a nasogastric tube which is alert in appearance. Multiple distended loops of small bowel which may be seen in setting of obstruction or ileus. Urgency: Routine. This is a routine medical imaging report. Recommendation: No specific imaging recommendation. Signed by Leo Bobo MD on 10/09/2019 10:36 AM Narrative Performed At Procedure(s): XR ABDOMEN 1 AP VIEW Date of service: 10/09/2019 9:19 AM Provided clinical information: 89-year-old female, request to confirm nasogastric catheter placement. Procedure And materials: Standard protocol. Comparison studies: 10/07/2019 Observations: There is a nasogastric tube, placed since the prior radiograph, which appears to be postpyloric (likely in the first or second portion of the duodenum). There are multiple distended loops of small bowel throughout the abdomen. This may represent ileus or obstruction. There is persistent hypoaeration of both lungs, more prominently the right. There is no consolidative process appreciated. The cardiomediastinal silhouette is stable. Procedure Note Interface, Rad Results - 10/09/2019 10:38 AM EST Procedure(s): XR ABDOMEN 1 AP VIEW Date of service: 10/09/2019 9:19 AM Provided clinical information: 89-year-old female, request to confirm nasogastric catheter placement. Procedure And materials: Standard protocol. Comparison studies: 10/07/2019 Observations: There is a nasogastric tube, placed since the prior radiograph, which appears to be postpyloric (likely in the first or second portion of the duodenum). There are multiple distended loops of small bowel throughout the abdomen. This may represent ileus or obstruction. There is persistent hypoaeration of both lungs, more prominently the right. There is no consolidative process appreciated. The cardiomediastinal silhouette is stable. IMPRESSION Interval placement of a nasogastric tube which is alert in appearance. Multiple distended loops of small bowel which may be seen in setting of obstruction or ileus. Urgency: Routine. This is a routine medical imaging report. Recommendation: No specific imaging recommendation. Signed by Leo Bobo MD on 10/09/2019 10:36 AM PARTIAL THROMBOPLASTIN TIME (10/09/2019 5:10 AM EST) PTT 26.9Comment: 21.3 - 35.9 SEC [facility] Reference range GROUP LAB[facility] updated 09/20/2019. Specimen Blood - Blood specimen (specimen) Performing Organization Address City/State/Zipcode Phone Number [facility] [address] [address] PROTHROMBIN TIME (10/09/2019 5:10 AM EST) INR 0.97Comment: INR 0.88 - 1.13 [facility] Therapeutic Range: Ratio GROUP LABORATORY 2.0 - 3.5 Protime 12.7Comment: 12.0 - 14.5 sec [facility] Reference range GROUP LAB[facility] updated 09/20/2019. Specimen Blood - Blood specimen (specimen) Performing Organization Address [facility] Phone Number [facility] [address] [facility] [place] [id number] [phone] TYPE AND SCREEN (10/09/2019 5:10 AM EST) ABO/RH Type O POS [facility] Antibody Screen Interp NEG [facility] Specimen Blood Performing Organization Address [facility] [place] [facility] [place] Phone Number [facility]LOOD [place] [address] MAGNESIUM LEVEL (10/09/2019 5:10 AM EST) Magnesium 2.2 1.6 - 2.3 MG/DL [facility] Specimen Blood - Blood specimen (specimen) Performing Organization Address [facility] [place] [facility] [place] Phone Number [facility] [address] [place] [address] BASIC METABOLIC PANEL (10/09/2019 5:10 AM EST) Glucose 203 (H) 70 - 99 mg/dl [facility] BUN 21 (H) 7 - 17 mg/dl [facility] Creatinine 0.8 0.7 - 1.2 mg/dl [facility] Sodium 144 134 - 145 mmol/L [facility] Potassium 3.7 3.5 - 5.1 mmol/L [facility] Chloride 111 (H) 98 - 107 mmol/L [facility] CO2 24 22 - 30 mmol/L [facility] Calcium 8.8 8.3 - 10.1 mg/dl [facility] eGFR >60 See Interpretation [facility] Comment: Below ml/min/1.73ml GROUP Estimated GFR Interpretation: Sq LABORATORY Above 60ml/min/1.73m2 = Normal Renal Function 30-59 ml/min/1.73m2 = Stage 3 Chronic Kidney Disease 15-29 ml/min/1.73m2 = Stage 4 Chronic Kidney Disease Less than 15 ml/min/1.73m2 = Stage 5 Chronic Kidney Disease The GFR value is calculated using the Modification of Diet in Renal Disease ( MDRD) Study Equation which can be found at: https://www.kidney.org/content/ukgf-kcwqt-vqxeyegn BUN/Creatinine 26 (H) 6 - 22 RATIO [facility] Ratio GROUP LABORATORY Anion Gap 9 3 - 11 mmol/L [facility] Specimen Blood - Blood specimen (specimen) Performing Organization Address [facility] Phone Number [facility] [address] [place] [address] [phone] CBC NO DIFFERENTIAL (10/09/2019 5:10 AM EST) WBC Count 9.46Comment: 3.98 - 10.04 [facility] was K/uL GROUP LABORATORY changed 12/02/2018. Please note updated reference range and units. RBC Count 4.27 3.93 - 5.22 [facility] M/UL GROUP LABORATORY Hemoglobin 13.3 11.2 - 15.7 [facility] g/dL GROUP LABORATORY Hematocrit 41.6 34.1 - 44.9 % [facility] MCV 97.4 (H) 79.4 - 94.8 [facility] FL GROUP LABORATORY MCH 31.1 25.6 - 32.2 [facility] PG GROUP LABORATORY MCHC 32.0 (L) 32.2 - 35.5 [facility] g/dL GROUP LABORATORY Platelet Count 172 (L) 182 - 369 [facility] K/uL [facility] MPV 9.9 9.4 - 12.3 [facility] RDW 14.1 11.7 - 14.4 % [facility] Specimen Blood - Blood specimen (specimen) Performing Organization Address [facility] Phone Number [facility] [address] [place] [address] [phone] GLUCOSE (POCT) (10/08/2019 12:11 PM EST) Glucose POCT 117 (H) 70 - 99 mg/dl POINT OF CARE Result Comment: TESTING Performed at: [facility] POCT Hari Matthews MD, Laboratory Financial Health Counselor [address] [address] Specimen Performing Organization Address City/State/Zipcode Phone Number POINT OF CARE TESTING XR ABDOMEN 1 AP VIEW (10/07/2019 11:18 AM EST) Specimen Impressions Performed At Observations/ Impression: Enteric tube tip and sidehole port again seen within the region of proximal stomach. Positive enteric contrast material is again seen within the cecum and ascending colon as well as the descending and rectosigmoid colon. Urgency: Routine. This is a routine medical imaging report. Recommendation: No specific imaging recommendation. Signed by Girish Claire MD on 10/07/2019 12:20 PM Narrative Performed At Procedure(s): XR ABDOMEN 1 AP VIEW Date of service: 10/07/2019 10:25 AM Provided clinical information: 89 years, Female, "surgery follow up" Procedure and materials: 1 view abdomen Comparison studies: Earlier same day 10/07/2019 Procedure Note Interface, Rad Results - 10/07/2019 12:23 PM EST Procedure(s): XR ABDOMEN 1 AP VIEW Date of service: 10/07/2019 10:25 AM Provided clinical information: 89 years, Female, "surgery follow up" Procedure and materials: 1 view abdomen Comparison studies: Earlier same day 10/07/2019 IMPRESSION Observations/ Impression: Enteric tube tip and sidehole port again seen within the region of proximal stomach. Positive enteric contrast material is again seen within the cecum and ascending colon as well as the descending and rectosigmoid colon. Urgency: Routine. This is a routine medical imaging report. Recommendation: No specific imaging recommendation. Signed by Girish Claire MD on 10/07/2019 12:20 PM XR ABDOMEN 1 AP VIEW (10/07/2019 5:31 AM EST) Specimen Impressions Performed At Findings/impression: 1. Enteric contrast is present within the colon from cecum through proximal descending colon. Bowel gas pattern is nonobstructive. 2. Enteric tube tip and sidehole in the proximal stomach region. 3. Bibasilar atelectasis and trace effusions. Signed by Sohan Coombs on 10/07/2019 6:03 AM Narrative Performed At Procedure(s): XR ABDOMEN 1 AP VIEW Date of service: 10/07/2019 5:03 AM Provided clinical information: 89 years, Female, "please evaluate for contrast transit into colon" Procedure and materials: Standard protocol. Comparison studies: 10/06/2019. Procedure Note Interface, Rad Results - 10/07/2019 6:05 AM EST Procedure(s): XR ABDOMEN 1 AP VIEW Date of service: 10/07/2019 5:03 AM Provided clinical information: 89 years, Female, "please evaluate for contrast transit into colon" Procedure and materials: Standard protocol. Comparison studies: 10/06/2019. IMPRESSION Findings/impression: 1. Enteric contrast is present within the colon from cecum through proximal descending colon. Bowel gas pattern is nonobstructive. 2. Enteric tube tip and sidehole in the proximal stomach region. 3. Bibasilar atelectasis and trace effusions. Signed by Sohan Coombs on 10/07/2019 6:03 AM MAGNESIUM LEVEL (10/07/2019 5:19 AM EST) Magnesium 2.2 1.6 - 2.3 MG/DL [facility] Specimen Blood - Blood specimen (specimen) Performing Organization Address [facility] [place] [facility] [place] Phone Number [facility] [address] [place] [address] CBC NO DIFFERENTIAL (10/07/2019 5:19 AM EST) WBC Count 7.71Comment: 3.98 - 10.04 [facility] Methodology was K/uL GROUP LABORATORY changed 12/02/2018. Please note updated reference range and units. RBC Count 3.99 3.93 - 5.22 [facility] M/UL [facility] Hemoglobin 12.5 11.2 - 15.7 [facility] g/dL GROUP LAB[facility] Hematocrit 40.5 34.1 - 44.9 % [facility] MCV 101.5 (H) 79.4 - 94.8 [facility] FL GROUP LAB[facility]ORY MCH 31.3 25.6 - 32.2 [facility] PG GROUP LABORATORY MCHC 30.9 (L) 32.2 - 35.5 [facility] g/dL GROUP LABORATORY Platelet Count 134 (L) 182 - 369 [facility] K/uL GROUP [facility]ATORY MPV 10.1 9.4 - 12.3 FL [facility] RDW 14.4 11.7 - 14.4 % [facility] Specimen Blood - Blood specimen (specimen) Performing Organization Address [facility] [place] [facility] [place] Phone Number [facility] [address] [place] [address] [phone] BASIC METABOLIC PANEL (10/07/2019 5:19 AM EST) Glucose 109 (H) 70 - 99 mg/dl [facility] BUN 18 (H) 7 - 17 mg/dl [facility] Creatinine 0.8 0.7 - 1.2 mg/dl [facility] Sodium 144 134 - 145 mmol/L [facility] Potassium 4.0 3.5 - 5.1 mmol/L [facility] Chloride 119 (H) 98 - 107 mmol/L [facility] CO2 20 (L) 22 - 30 mmol/L [facility] Calcium 7.8 (L) 8.3 - 10.1 mg/dl [facility] eGFR >60 See Interpretation [facility] Comment: Below ml/min/1.73ml GROUP Estimated GFR Interpretation: Sq LABORATORY Above 60ml/min/1.73m2 = Normal Renal Function 30-59 ml/min/1.73m2 = Stage 3 Chronic Kidney Disease 15-29 ml/min/1.73m2 = Stage 4 Chronic Kidney Disease Less than 15 ml/min/1.73m2 = Stage 5 Chronic Kidney Disease The GFR value is calculated using the Modification of Diet in Renal Disease ( MDRD) Study Equation which can be found at: https://www.kidney.org/content/iqgx-emiam-dcxzibch BUN/Creatinine 23 (H) 6 - 22 RATIO [facility] Anion Gap 5 3 - 11 mmol/L [facility] Specimen Blood - Blood specimen (specimen) Performing Organization Address [facility] Phone Number [facility] [address] [place] [address] GLYCOHEMOGLOBIN A1C (10/07/2019 5:19 AM EST) Glycohemoglobin A1C 6.9 (H) <=5.6 % [facility] Comment: GROUP LABORATORY Normal*: <=5.6% Pre Diabetes* Risk: 5.7-6.4% Diabetes* Risk: >=6.5% Glycemic Goals for Adult Diabetes*: <7.0% *(Adult Ranges)[place] [employer], Standards of Medical Care in Diabetes, 2018 Specimen Blood - Blood specimen (specimen) Performing Organization Address [facility] Phone Number [facility] [address] [address] [phone] GLUCOSE (POCT) (10/06/2019 11:06 PM EST) Glucose POCT 93 70 - 99 mg/dl POINT OF CARE Result Comment: TESTING Performed at: [facility] POCT Hari Matthews MD, Laboratory Financial Health Counselor [address] [place] [address] Specimen Performing Organization Address [facility] Phone Number POINT OF CARE TESTING GLUCOSE (POCT) (10/06/2019 5:49 PM EST) Glucose POCT 96 70 - 99 mg/dl POINT OF CARE Result Comment: TESTING Performed at: [facility] POCT Hari Matthews MD, Laboratory Financial Health Counselor [address] [place] [address] Specimen Performing Organization Address [facility] [place] [facility] [place] Phone Number POINT OF CARE TESTING XR ABDOMEN 1 AP VIEW (10/06/2019 3:44 PM EST) Specimen Impressions Performed At As above Urgency: Routine. This is a routine medical imaging report. Recommendation: No specific imaging recommendation. Signed by Aline Aquino MD on 10/06/2019 3:50 PM Narrative Performed At Procedure(s): XR ABDOMEN 1 AP VIEW Date of service: 10/06/2019 3:08 PM Provided clinical information: 89 years, Female, "in OR" Procedure and materials: Standard protocol. Comparison studies: None. Correlation with CT abdomen pelvis October 05, 2019 Observations: No radiopaque foreign body seen. Enteric tube tip around gastroesophageal junction. Moderate constipation pattern. Procedure Note Interface, Rad Results - 10/06/2019 3:52 PM EST Procedure(s): XR ABDOMEN 1 AP VIEW Date of service: 10/06/2019 3:08 PM Provided clinical information: 89 years, Female, "in [place]" Procedure and materials: Standard protocol. Comparison studies: None. Correlation with CT abdomen pelvis October 05, 2019 Observations: No radiopaque foreign body seen. Enteric tube tip around gastroesophageal junction. Moderate constipation pattern. IMPRESSION As above Urgency: Routine. This is a routine medical imaging report. Recommendation: No specific imaging recommendation. Signed by Aline Aquino MD on 10/06/2019 3:50 PM GLUCOSE (POCT) (10/06/2019 1:01 PM EST) Glucose POCT 101 (H) 70 - 99 mg/dl POINT OF CARE Result Comment: TESTING Performed at: [facility] POCT Hari Matthews MD, Laboratory Financial Health Counselor [address] [place] [address] [address] Specimen Performing Organization Address [facility] [place] [facility] [place] Phone Number POINT OF CARE TESTING GLUCOSE (POCT) (10/06/2019 6:20 AM EST) Glucose POCT 104 (H) 70 - 99 mg/dl POINT OF CARE Result Comment: TESTING Performed at: [facility] POCT Hari Matthews MD, Laboratory Financial Health Counselor [address] [place] [address] [place] [address] Specimen Performing Organization Address [facility] Number POINT OF CARE TESTING TROPONIN (10/06/2019 4:38 AM EST) Troponin 0.257 (HH) 0.000 - 0.034 [facility] Comment: ng/ml GROUP LABORATORY Moderately Hemolyzed, results may be affected. Negative less than or equal to 0.034 ng/ml Indeterminate 0.0351 - 0.119 ng/ml (Suggest Repeat in 4 Hours) Critical (AMI Cutoff) greater than or equal to 0.120 ng/ml Specimen Blood - Blood specimen (specimen) Performing Organization Address [facility] [place] [facility] [place] Phone Number [facility] [address] [place] [address] MAGNESIUM LEVEL (10/06/2019 4:38 AM EST) Pathologist [facility] Magnesium 3.0 (H)Comment: 1.6 - 2.3 MG/DL [facility] Moderately GROUP LABORATORY Hemolyzed, results may be affected. Specimen Blood - Blood specimen (specimen) Performing Organization Address [facility] [place] [facility] [place] Phone Number [facility] [address] [place] [address] [phone] CBC NO DIFFERENTIAL (10/06/2019 4:38 AM EST) WBC Count 8.63Comment: 3.98 - 10.04 [facility] Methodology was K/uL GROUP LABORATORY changed 12/02/2018. Please note updated reference range and units. RBC Count 4.67 3.93 - 5.22 [facility] M/UL GROUP LAB[facility]ORY Hemoglobin 14.6 11.2 - 15.7 [facility] g/dL GROUP LABORATORY Hematocrit 45.5 (H) 34.1 - 44.9 % [facility] MCV 97.4 (H) 79.4 - 94.8 [facility] FL GROUP LABORATORY MCH 31.3 25.6 - 32.2 [facility] PG GROUP LABORATORY MCHC 32.1 (L) 32.2 - 35.5 [facility] g/dL GROUP LABORATORY Platelet Count 146 (L) 182 - 369 [facility] K/uL GROUP LABORATORY MPV 10.0 9.4 - 12.3 FL [facility] RDW 14.1 11.7 - 14.4 % [facility] Specimen Blood - Blood specimen (specimen) Performing Organization Address City/State/Zipcode Phone Number [facility] [address] [facility] [address] [place] [address] [phone] BASIC METABOLIC PANEL (10/06/2019 4:38 AM EST) Glucose 131 (H) 70 - 99 mg/dl [facility] BUN 25 (H)Comment: 7 - 17 mg/dl [facility] Hemolyzed, results LABORATORY may be affected. Creatinine 0.9 0.7 - 1.2 mg/dl [facility] Sodium 139 134 - 145 mmol/L [facility] Potassium 5.1Comment: 3.5 - 5.1 mmol/L [facility] Hemolyzed, results LABORATORY may be affected. Chloride 111 (H) 98 - 107 mmol/L [facility] CO2 19 (L) 22 - 30 mmol/L [facility] Calcium 8.2 (L) 8.3 - 10.1 mg/dl [facility] eGFR 59 See Interpretation [facility] Comment: Below ml/min/1.73ml GROUP Estimated GFR Interpretation: Sq LABORATORY Above 60ml/min/1.73m2 = Normal Renal Function 30-59 ml/min/1.73m2 = Stage 3 Chronic Kidney Disease 15-29 ml/min/1.73m2 = Stage 4 Chronic Kidney Disease Less than 15 ml/min/1.73m2 = Stage 5 Chronic Kidney Disease The GFR value is calculated using the Modification of Diet in Renal Disease ( MDRD) Study Equation which can be found at: https://www.kidney.org/content/fjkh-dndml-mezsnscn BUN/Creatinine 28 (H) 6 - 22 RATIO [facility]ORY Anion Gap 9 3 - 11 mmol/L [facility] Specimen Blood - Blood specimen (specimen) Performing Organization Address [facility] [place] [facility] [place] Phone Number [facility] [address] [address] [phone] GLUCOSE (POCT) (10/05/2019 11:52 PM EST) Glucose POCT 133 (H) 70 - 99 mg/dl POINT OF CARE Result Comment: TESTING Performed at: [facility] POCT Hari Matthews MD, Laboratory Financial Health Counselor [address] [place] [address] Specimen Performing Organization Address [facility] [place] [facility] [place] Phone Number POINT OF CARE TESTING GLUCOSE (POCT) (10/05/2019 8:58 PM EST) Glucose POCT 171 (H) 70 - 99 mg/dl POINT OF CARE Result Comment: TESTING Performed at: [facility] POCT Hari Mattehws MD, Laboratory Financial Health Counselor [address] [place] [address] Specimen Performing Organization Address [facility] [place] [facility] [place] Phone Number POINT OF CARE TESTING PATIENT TYPE CONFIRMATION (10/05/2019 8:23 PM EST) Specimen Blood - Blood specimen (specimen) Performing Organization Address [facility] [place] [facility] [place] Phone Number [facility] [address] [place] [address] TROPONIN (10/05/2019 8:23 PM EST) Troponin 0.393 (HH) 0.000 - 0.034 [facility] Comment: ng/ml GROUP LABORATORY Negative less than or equal to 0.034 ng/ml Indeterminate 0.0351 - 0.119 ng/ml (Suggest Repeat in 4 Hours) Critical (AMI Cutoff) greater than or equal to 0.120 ng/ml Specimen Blood - Blood specimen (specimen) Performing Organization Address [facility] Phone Number [facility] [address] [address] MAGNESIUM LEVEL (10/05/2019 8:23 PM EST) Magnesium 1.6 1.6 - 2.3 MG/DL [facility] Specimen Blood - Blood specimen (specimen) Performing Organization Address [facility] Phone Number [facility] [address] [place] [address] BASIC METABOLIC PANEL (10/05/2019 8:23 PM EST) Glucose 236 (H) 70 - 99 mg/dl [facility] BUN 28 (H) 7 - 17 mg/dl [facility] Creatinine 0.9 0.7 - 1.2 mg/dl [facility] Sodium 138 134 - 145 mmol/L [facility] Potassium 4.5 3.5 - 5.1 mmol/L [facility] Chloride 108 (H) 98 - 107 mmol/L [facility] CO2 22 22 - 30 mmol/L [facility] Calcium 8.1 (L) 8.3 - 10.1 mg/dl [facility] eGFR 59 See Interpretation [facility] Comment: Below ml/min/1.73ml GROUP Estimated GFR Interpretation: Sq LABORATORY Above 60ml/min/1.73m2 = Normal Renal Function 30-59 ml/min/1.73m2 = Stage 3 Chronic Kidney Disease 15-29 ml/min/1.73m2 = Stage 4 Chronic Kidney Disease Less than 15 ml/min/1.73m2 = Stage 5 Chronic Kidney Disease The GFR value is calculated using the Modification of Diet in Renal Disease ( MDRD) Study Equation which can be found at: https://www.kidney.org/content/eeww-ihstp-jzthgook BUN/Creatinine 31 (H) 6 - 22 RATIO [facility]ORY Anion Gap 8 3 - 11 mmol/L [facility] Specimen Blood - Blood specimen (specimen) Performing Organization Address [facility] Phone Number [facility] [address] [place] [place] [address] CBC NO DIFFERENTIAL (10/05/2019 8:23 PM EST) WBC Count 10.30 (H)Comment: 3.98 - 10.04 [facility] Methodology was K/uL GROUP LABORATORY changed 12/02/2018. Please note updated reference range and units. RBC Count 4.18 3.93 - 5.22 [facility] M/UL GROUP [facility] Hemoglobin 12.8 11.2 - 15.7 [facility] g/dL GROUP LABORATORY Hematocrit 41.5 34.1 - 44.9 % [facility] MCV 99.3 (H) 79.4 - 94.8 [facility] FL GROUP LABORATORY MCH 30.6 25.6 - 32.2 [facility] PG GROUP LABORATORY MCHC 30.8 (L) 32.2 - 35.5 [facility] g/dL GROUP LABORATORY Platelet Count 139 (L) 182 - 369 [facility] K/uL GROUP LABORATORY MPV 9.8 9.4 - 12.3 FL [facility] RDW 13.9 11.7 - 14.4 % [facility] Specimen Blood - Blood specimen (specimen) Performing Organization Address City/[facility] Phone Number [facility] [address] [place] [address] GLUCOSE (POCT) (10/05/2019 7:27 PM EST) Glucose POCT 201 (H) 70 - 99 mg/dl POINT OF CARE Result Comment: TESTING Performed at: [facility] POCT Hari Matthews MD, Laboratory Financial Health Counselor [address] [place] [address] Specimen Performing Organization Address [facility] Phone Number POINT OF CARE TESTING XR ERCP BILIARY AND PANCREATIC (10/05/2019 5:04 PM EST) Specimen Impressions Performed At Fluoroscopy was used to assist with ERCP. Please reference to operating provider's procedure note for further detail. Urgency: Routine. This is a routine medical imaging report. Signed by Wendy Riggins on 10/05/2019 5:16 PM Narrative Performed At Procedure(s): XR ERCP BILIARY AND PANCREATIC Date of service: 10/05/2019 3:48 PM Provided clinical information: 89 years, Female, "choledocolithiasis" Procedure and materials: fluoroscopy guidance . Potential limitations: Limited study. Comparison studies: None. Observations: Fluoroscopy was used to assist with ERCP. 389 seconds of fluoroscopy time were utilized. Procedure Note Interface, Rad Results - 10/05/2019 5:18 PM EST Procedure(s): XR ERCP BILIARY AND PANCREATIC Date of service: 10/05/2019 3:48 PM Provided clinical information: 89 years, Female, "choledocolithiasis" Procedure and materials: fluoroscopy guidance . Potential limitations: Limited study. Comparison studies: None. Observations: Fluoroscopy was used to assist with ERCP. 389 seconds of fluoroscopy time were utilized. IMPRESSION Fluoroscopy was used to assist with ERCP. Please reference to operating provider's procedure note for further detail. Urgency: Routine. This is a routine medical imaging report. Signed by Wendy Riggins on 10/05/2019 5:16 PM ERCP NOTE (10/05/2019 3:07 PM EST) ERCP [facility] PROVATION __ Patient Name: Samra Garcia Procedure Date: 10/05/2019 3:07 PM Date of : 1930 Admit Type: Inpatient Age: 89 Room: OR Gender: Female Note Status: Finalized Attending MD: KAMI TORO JR, MD Instrument Name: [id number] ERCP __ Procedure: ERCP Indications: Evaluation and possible treatment of bile duct stone(s) Providers: KAMI TORO JR, MD, Carmencita Tam (Nurse), Aster Xie RN (Nurse) Referring MD: JOAQUIN LAROSE MD (Referring MD) Medicines: See the Anesthesia note for documentation of the administered medications Complications: No immediate complications. __ Procedure: After obtaining informed consent, the scope was passed under direct vision. Throughout the procedure, the patient's blood pressure, pulse, and oxygen saturations were monitored continuously. The Duodenoscope was introduced through the mouth, and used to inject contrast into and used to inject contrast into the bile duct. The ERCP was accomplished without difficulty. The patient tolerated the procedure well. Findings: The major papilla was on the rim of a diverticulum. A 0.035 inch x 260 cm straight Dreamwire was passed into the biliary tree. The Dreamtome sphincterotome was passed over the guidewire and the bile duct was then deeply cannulated. Contrast was injected. I personally interpreted the bile duct images. There was brisk flow of contrast through the ducts. Image quality was excellent. Contrast extended to the entire biliary tree. The middle third of the main bile duct contained one stone, which was 15 mm in diameter. The main bile duct was diffusely dilated. The largest diameter was 15 mm. A 13 mm biliary sphincterotomy was made with a monofilament Dreamtome sphincterotome using ERBE electrocautery. There was no post-sphincterotomy bleeding. Major papilla was successfully dilated with a 10 mm balloon dilator. The biliary tree was swept with a 15 mm balloon starting at the bifurcation. All stones were removed. Impression: - The major papilla was on the rim of a diverticulum. - The entire main bile duct was dilated. - Choledocholithiasis was found. Complete removal was accomplished by biliary sphincterotomy and balloon extraction. - A biliary sphincterotomy was performed. - Major papilla was successfully dilated. - The biliary tree was swept. Recommendation: - Continue present medications. - Return patient to [facility] for ongoing care. Procedure Code(s): --- Professional --- 15449, 59, Endoscopic retrograde cholangiopancreatography (ERCP); with trans-endoscopic balloon dilation of biliary/pancreatic duct(s) or of ampulla (sphincteroplasty), including sphincterotomy, when performed, each duct 41434, Endoscopic retrograde cholangiopancreatography (ERCP); with removal of calculi/debris from biliary/pancreatic duct(s) 31844, Endoscopic catheterization of the biliary ductal system, radiological supervision and interpretation Diagnosis Code(s): --- Professional --- K80.50, Calculus of bile duct without cholangitis or cholecystitis without obstruction CPT copyright 2017 [employer]. All rights reserved. The codes documented in this report are preliminary and upon underground mining section foreman review may be revised to meet current compliance requirements. KAMI TORO JR, MD 10/05/2019 6:29:17 PM This report has been signed electronically. Number of Addenda: 0 Note Initiated On: 10/05/2019 3:07 PM Specimen Performing Organization Address [facility] [place] [facility] [place] Phone Number [facility]OVATION XR [facility] IMAGESTREAM (10/05/2019 2:50 PM EST) Specimen Narrative Performed At [facility] OR [employer]. If no PACS link is available, no images were [facility] POCT taken and saved to PACS. Performing Organization Address [facility] [place] [facility] [place] Phone Number [facility] POCT 1 [facility] [place] [address] GLUCOSE (POCT) (10/05/2019 2:39 PM EST) Glucose POCT 255 (H) 70 - 99 mg/dl POINT OF CARE Result Comment: TESTING Performed at: [facility] POCT Hari Matthews MD, Laboratory Financial Health Counselor 1 [facility] [place] [address] Specimen Performing Organization Address [facility] [place] [facility] [place] Phone Number POINT OF CARE TESTING MAGNESIUM LEVEL (10/05/2019 12:44 PM EST) Magnesium 2.0 1.6 - 2.3 MG/DL [facility] Specimen Blood - Blood specimen (specimen) Performing Organization Address [facility] Phone Number [facility] 1 [facility] [place] [address] [phone] BILIRUBIN, DIRECT (10/05/2019 12:44 PM EST) Direct Bilirubin 0.0 0.0 - 0.3 MG/DL [facility] Specimen Blood - Blood specimen (specimen) Performing Organization Address [facility] Phone Number [facility] [address] [place] [address] TYPE AND SCREEN (10/05/2019 12:44 PM EST) ABO/RH Type O POS [facility] Antibody Screen Interp NEG [facility] Specimen Blood - Blood specimen (specimen) Performing Organization Address [facility] [place] [facility] [place] Phone Number [facility] [place] [address] PARTIAL THROMBOPLASTIN TIME (10/05/2019 12:44 PM EST) PTT 21.6Comment: 21.3 - 35.9 SEC [place] Reference range [facility] LAB[facility] updated 09/20/2019. Specimen Blood - Blood specimen (specimen) Performing Organization Address [facility] Phone Number [facility] [address] [place] [address] PROTHROMBIN TIME (10/05/2019 12:44 PM EST) INR 1.01Comment: INR 0.88 - 1.13 [facility] Therapeutic Range: Ratio GROUP LABORATORY 2.0 - 3.5 Protime 13.1Comment: 12.0 - 14.5 sec [place] Reference range GROUP [facility] updated 09/20/2019. Specimen Blood - Blood specimen (specimen) Performing Organization Address [facility] [place] [facility] [place] Phone Number [facility] [address] [place] [address] COMPREHENSIVE METABOLIC PANEL (10/05/2019 12:44 PM EST) Sodium 140 134 - 145 mmol/L [facility] Potassium 5.1 3.5 - 5.1 mmol/L [facility] Chloride 106 98 - 107 mmol/L [facility] CO2 22 22 - 30 mmol/L [facility] Calcium 9.4 8.3 - 10.1 mg/dl [facility] Albumin 4.1 3.5 - 5.0 g/dl [facility] BUN 27 (H) 7 - 17 mg/dl [facility] Creatinine 0.8 0.7 - 1.2 mg/dl [facility] Glucose 274 (H) 70 - 99 mg/dl [facility] Total Protein 7.4 6.3 - 8.2 g/dl [facility] Total Bilirubin 0.7 0.0 - 1.1 MG/DL [facility] AST 29 15 - 46 U/L [facility] ALT 21 9 - 52 U/L [facility] Alkaline 89 40 - 150 U/L [facility] LAB[facility]ATORY eGFR >60 See Interpretation [facility] Comment: Below ml/min/1.73ml GROUP Estimated GFR Interpretation: Sq LABORATORY Above 60ml/min/1.73m2 = Normal Renal Function 30-59 ml/min/1.73m2 = Stage 3 Chronic Kidney Disease 15-29 ml/min/1.73m2 = Stage 4 Chronic Kidney Disease Less than 15 ml/min/1.73m2 = Stage 5 Chronic Kidney Disease The GFR value is calculated using the Modification of Diet in Renal Disease ( MDRD) Study Equation which can be found at: https://www.kidney.org/content/npjt-bjrsv-qsezhbgz BUN/Creatinine 34 (H) 6 - 22 RATIO [facility] LABORATORY Anion Gap 12 (H) 3 - 11 mmol/L [facility] A/G Ratio 1.2 0.8 - 2.0 ratio [facility] Specimen Blood - Blood specimen (specimen) Performing Organization Address City/State/Zipcode Phone Number [facility] [address] [place] [address] CBC WITH DIFFERENTIAL (10/05/2019 12:44 PM EST) WBC Count 11.34 (H) 3.98 - 10.04 [facility] K/uL LABORATORY RBC Count 5.24 (H) 3.93 - 5.22 M/UL [facility] Hemoglobin 16.2 (H) 11.2 - 15.7 g/dL [facility] Hematocrit 50.4 (H) 34.1 - 44.9 % [facility] MCV 96.2 (H) 79.4 - 94.8 FL [facility] MCH 30.9 25.6 - 32.2 PG [facility] MCHC 32.1 (L) 32.2 - 35.5 g/dL [facility] Platelet Count 188 182 - 369 K/uL [facility] MPV 10.1 9.4 - 12.3 FL [facility] RDW 14.0 11.7 - 14.4 % [facility] Neutrophil % 89.0 (H) 34.0 - 71.1 % [facility] Lymphocyte % 4.0 (L) 19.3 - 51.7 % [facility] Monocyte % 6.1 4.7 - 12.5 % [facility] Eosinophil % 0.0 (L) 0.7 - 5.8 % [facility] Basophil % 0.5 0.1 - 1.2 % [facility] nRBC % 0.0 0.0 - 0.2 % [facility] Neutrophil # 10.10 (H) 1.56 - 6.13 K/UL [facility] Lymphocyte # 0.45 (L) 1.18 - 3.74 K/UL [facility] Monocyte # 0.69 0.24 - 0.86 K/UL [facility] Eosinophil # 0.00 (L) 0.04 - 0.36 K/UL [facility] Basophil # 0.06 0.01 - 0.08 K/UL [facility] Immature Gran % 0.4 0.0 - 0.4 % [facility] Immature Gran # 0.04 (H) 0.00 - 0.03 K/uL [facility] NRBC # 0.00 0.00 - 0.12 K/uL [facility] Specimen Blood - Blood specimen (specimen) Performing Organization Address City/State/Zipcode Phone Number [facility] [address] [place] [address] CARDIOLOGY TEST RESULT (10/05/2019 12:00 PM EST) Narrative Performed At documented in this encounter Visit Diagnoses Diagnosis SBO (small bowel obstruction) ([facility]) - Primary Unspecified intestinal obstruction Generalized abdominal pain Abdominal pain, generalized Hypomagnesemia Disorders of magnesium metabolism Hyperglycemia Other abnormal glucose Choledocholithiasis Calculus of bile duct without mention of cholecystitis or obstruction NSTEMI (non-ST elevated myocardial infarction) (HCC) Acute myocardial infarction, subendocardial infarction, episode of care unspecified Acute respiratory insufficiency, postoperative Other pulmonary insufficiency, not elsewhere classified, following trauma and surgery 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 Ileus (HCC) Paralytic ileus Hypovolemia documented in this encounter Administered Medications Medication Order MAR Action Action Date Dose Rate Site dextrose 5% and lactated New Bag 10/12/2019 3:22 AM EST 100 mL/hr ringers IV Intravenous, at 100 mL/hr, CONTINUOUS, Starting Thu10/10/19 at 1010, Until Thu10/12/19 at 1658 New Bag 10/10/2019 7:35 PM EST 100 mL/hr Rate Verify 10/10/2019 4:00 PM EST 100 mL/hr diatrizoate meglumine & diatrizoate sodium Given 10/06/2019 7:55 PM EST 90 mL (MD-GASTROVIEW,GASTROGRAFIN) oral solution 66-10 % 90 mL, Nasogastric, NOW, 1 dose, Kaitlin 10/06/19 at 2000, Administer 90 ml of UNDILUTED MD-Gastroview via NGT AFTER NGT has been inserted and stomach has been decompressed as evidenced by significantly decreased rate in output of gastric contents, enoxaparin (LOVENOX) injection Given 10/12/2019 9:43 PM EST 40 mg Abdominal Tissue 40 mg/0.4 mL 40 mg 40 mg, Subcutaneous, Q24 HRS, 8 doses, First dose on Thu10/07/19 at 1840, Last dose on Thu10/14/19 at 2100, Lovenox (enoxaparin): Lovenox is rounded to the nearest 10 mg per hospital policy. - CAUTION & CONSIDER Heparin Xa (anti-Xa levels): CrCl < 30 mL/min; Women < 45 kg; Men < 57 kg; Weight > 150 kg or BMI > 40 kg/m2; , Pediatrics and Elderly patients - Treatment dose: 1 mg/kg q12h - Prophylactic dose: 40 mg q24h OR 30 mg q12h , Given 10/11/2019 8:55 PM EST 40 mg Abdominal Tissue Given 10/10/2019 8:47 PM EST 40 mg Abdominal Tissue FentaNYL 2 mcg/mL and ropivacaine Rate Verify 10/05/2019 7:04 PM EST 8 mL /hr 0.1% epidural 200 ml Epidural, at 8 mL/hr, CONTINUOUS, Starting Thu10/05/19 at 1810, Until 10/05/19 at 2020, PCEA - Patient bolus dose: 4 ml Q 20 min PRN; Number of bolus doses patient may receive in 1 hour: 3; Start the PCEA infusion with a bolus of 6 ml of the Bag Solution., New Bag 10/05/2019 6:31 PM EST 8 mL/hr FentaNYL 2 mcg/mL and ropivacaine Rate Change 10/05/2019 8:26 PM EST 4 mL /hr 0.1% epidural 200 ml Epidural, at 4 mL/hr, CONTINUOUS, Starting 10/05/19 at 2030, Until Kaitlin 10/06/19 at 0650, PCEA - Patient bolus dose: 4 ml Q 20 min PRN; Number of bolus doses patient may receive in 1 hour: 3; Start the PCEA infusion with a bolus of 6 ml of the Bag Solution., FentaNYL 2 mcg/mL and ropivacaine Rate Verify 10/08/2019 7:29 AM EST 4 mL /hr 0.1% epidural 200 ml Epidural, at 4 mL/hr, CONTINUOUS, Starting Kaitlin 10/06/19 at 0840, Until 10/08/19 at 1105, PCEA - Patient bolus dose: 4 ml Q 20 min PRN; Number of bolus doses patient may receive in 1 hour: 3; Start the PCEA infusion with a bolus of 6 ml of the Bag Solution., New Bag 10/07/2019 10:53 PM EST 4 mL/hr Rate Verify 10/07/2019 7:55 PM EST 4 mL/hr FentaNYL 2 mcg/mL and ropivacaine Rate Verify 10/10/2019 7:27 AM EST 4 mL /hr 0.1% epidural 200 ml Epidural, at 4 mL/hr, CONTINUOUS, Starting 10/08/19 at 1110, Until 10/10/19 at 0900, PCEA - Patient bolus dose: 2 ml Q 20 min PRN; Number of bolus doses patient may receive in 1 hour: 3; Start the PCEA infusion with a bolus of 6 ml of the Bag Solution., New Bag 10/09/2019 11:09 AM EST 4 mL/hr Rate Verify 10/08/2019 10:03 PM EST 4 mL/hr heparin injection 5000 Given 10/07/2019 2:37 PM 5,000 Units Abdominal Tissue UNIT/ML EST 5,000 Units, Subcutaneous, Q8H (Heparin), 15 doses, First dose on Kaitlin 10/06/19 at 1400, Last dose on Thu10/11/19 at 0600 Given 10/07/2019 5:29 AM EST 5,000 Units Leg - Left Given 10/06/2019 9:57 PM EST 5,000 Units Arm - Upper Left HYDROcodone-acetaminophen (LORTAB) oral Given 10/13/2019 8:32 AM EST 15 mL solution 7.5-325 MG/15ML 15 mL, Oral, Q3 HRS PRN, Starting 10/08/19 at 1102, Until Kaitlin 10/13/19 at 1723, Mild Pain (pain scale 1-3) - PO - 1st line - if immediate effect not required and patient can tolerate PO, MAXIMUM 4,000 mg of acetaminophen daily., HYDROmorphone (DILAUDID) syringe 0.25 mg Given 10/10/2019 10:40 AM EST 0.25 mg 0.25 mg, Intravenous Push, Q2 HRS PRN, Starting Thu10/05/19 at 1806, Until Thu10/12/19 at 1805, Moderate Pain (pain scale 4-6) - IV - 1st line - if immediate effect required or patient cannot tolerate PO, concurrent to the PCEA administration PRN breakthrough pain HYDROmorphone (DILAUDID) syringe 0.5 mg Given 10/05/2019 5:13 PM EST 0.5 mg 0.5 mg, Intravenous Push, Q4 HRS PRN, Starting Thu10/05/19 at 1318, Until 10/10/19 at 1126, Severe Pain (pain scale 7-10)IV 2nd line - if immediate effect required or cannot tolerate PO & no still has severe pain 1 hr after admin of 1st line agent or did not tolerate 1st line agent HYDROmorphone (DILAUDID) syringe 0.5 mg Given 10/12/2019 5:40 PM EST 0.5 mg 0.5 mg, Intravenous Push, Q4 HRS PRN, Starting Thu10/10/19 at 1125, Until Kaitlin 10/13/19 at 1752, Severe Pain (pain scale 7-10)IV 2nd line - if immediate effect required or cannot tolerate PO & no still has severe pain 1 hr after admin of 1st line agent or did not tolerate 1st line agent Given 10/11/2019 1:11 AM EST 0.5 mg lactated ringers IV New Bag 10/06/2019 3:00 AM EST 125 mL/hr Intravenous, at 125 mL/hr, CONTINUOUS, Starting Thu10/05/19 at 1420, Until Thu10/06/19 at 0650 New Bag 10/05/2019 7:12 PM EST 125 mL/hr New Bag 10/05/2019 1:23 PM EST 125 mL/hr lactated ringers IV Rate Change 10/07/2019 8:00 AM EST 50 mL/hr Intravenous, at 100 mL/hr, CONTINUOUS, Starting Thu10/07/19 at 0730, Until Thu10/07/19 at 1020 New Bag 10/07/2019 7:30 AM EST 100 mL/hr lactated ringers IV New 10/07/2019 10:54 PM EST 50 mL/hr Intravenous, at 50 mL/hr, CONTINUOUS, Starting Thu10/07/19 at 1030, Until Thu10/10/19 at 0605 New 10/07/2019 11:10 AM EST 50 mL/hr lactated ringers IV Rate Verify 10/10/2019 6:38 AM EST 100 mL/hr Intravenous, at 100 mL/hr, CONTINUOUS, Starting Thu10/10/19 at 0610, Until Thu10/10/19 at 0901 lidocaine Urethral/Mucosal (GLYDO) topical Given 10/09/2019 9:08 AM EST 11 mL Nose jelly 2 % Topical, X1, 1 dose, First dose on Thu10/09/19 at 1000, Apply to nose prior to ngt placement. thanks, magnesium sulfate IV premix 1 g 10/11/2019 10:24 AM EST 1 g 1 g, Intravenous, NOW, 1 dose, Tu10/11/19 at 0910 magnesium sulfate IV premix 4 g New 10/05/2019 9:31 PM EST 4 g 4 g, Intravenous, X1, 1 dose, First dose on Thu10/05/19 at 2100 nalbuphine (NUBAIN) injection 2.5 mg 2.5 mg, Intravenous, Q6 HRS PRN, Starting Thu10/06/19 at 0736, Until Thu at 1752, Pruritis/Itching - 1st line, If itching persists after first administered dose, may repeat X 1 in 30 minutes. If itching subsides after the repeat dose, call attending/anesthesia to adjust dose to 5 mg every 6 hours PRN for itching., naloxone (NARCAN) injection 0.1 mg 0.1 mg, Intravenous, X1 PRN MR, 3 doses, Starting Kaitlin 10/06/19 at 0736, Until Kaitlin 10/13/19 at 1752, Respiratory rate < ___, Give Narcan 0.1 mg IV stat for resp rate < 10 breaths per minute (may repeat q4 minutes x 3 prn), Dilute by mixing 0.4 mg of Naloxone with 9 mL of normal saline in a 10 mL syringe. Commonly dose at 0.04 mg x 1; repeated every 5-10 minutes until desired response. Administer by slow IV push 1 mL/min., normal saline bolus 1,000 mL New Bag 10/05/2019 8:18 PM EST 1,000 mL 1,000 mL, Intravenous, BOLUS, 1 dose, [facility] 10/05/19 at 2020 normal saline bolus 1,000 mL New Bag 10/06/2019 6:45 AM EST 1,000 mL 1,000 mL, Intravenous, BOLUS, 1 dose, [facility] 10/06/19 at 0750 normal saline IV New Bag 10/07/2019 3:03 AM EST 125 mL/hr Intravenous, at 125 mL/hr, CONTINUOUS, Starting Kaitlin 10/06/19 at 0750, Until Thu10/07/19 at 0627 New Bag 10/06/2019 7:11 PM EST 125 mL/hr New Bag 10/06/2019 3:03 PM EST ondansetron (ZOFRAN) injection 4 mg New Bag 10/08/2019 3:01 PM EST 4 mg 4 mg, Intravenous, X1 PRN, 1 dose, Starting Kaitlin 10/06/19 at 1533, Until 10/08/19 at 1501, Nausea/Vomiting - IV - 1st line - If immediate effect required or patient cannot tolerate PO, Administer if patient becomes nauseous anytime after administration of oral contrast. pantoprazole (PROTONIX) injection 40 mg Given 10/13/2019 6:32 AM EST 40 mg 40 mg, Intravenous Push, Q24 HRS, First dose on 10/09/19 at 0600, Until Discontinued, DO NOT USE BACTERIOSTATIC SALINE FROM STOREROOM!!!! INSTRUCTIONS: Reconstitute the Protonix vial with 10 mL Sodium Chloride prefilled syringe for an approximate final concentration of 4 mg/ml. Mix prior to administration. There is a 2 hour stability once mixed. Administer over a period of 2 minutes. Administer thru a dedicated line or a Y site. Please flush before and after administration. , Given 10/12/2019 6:07 AM EST 40 mg Given 10/11/2019 5:48 AM EST 40 mg phenol (CHLORASEPTIC) mouth/throat spray 1.4 % 1 [place], Mouth/Throat, PRN, Starting Thu10/09/19 at 0851, Until Thu10/13/19 at 1752, Sore throat - 1st line piperacillin-TAZOBACTAM (ZOSYN) (4 Hour) IV New Bag 10/07/2019 5:28 AM EST 4.5 g mixture 4.5 g 4.5 g, Intravenous, Q8 HRS, 44 doses, First dose on Thu10/05/19 at 2130, Last dose on Thu10/20/19 at 0600 New Bag 10/06/2019 9:57 PM EST 4.5 g Given 10/06/2019 2:34 PM EST 4.5 g piperacillin-TAZOBACTAM (ZOSYN) IV premix New Bag 10/05/2019 1:37 PM EST 4.5 g 4.5 g 4.5 g, Intravenous, NOW, 1 dose, Thu10/05/19 at 1330 potassium bicarb-citric acid (EFFER-K) Given 10/12/2019 9:43 PM EST 20 mEq effervescent tablet (for oral solution) 20 mEq 20 mEq, Oral, BID, 2 doses, First dose on Thu10/12/19 at 0900, Last dose on Thu10/12/19 at 2100, Dissolve in 3-4 ounces of cold juice before administration. It is suggested that it be taken with food and sipped slowly over a 5-10 minute period., Given 10/12/2019 8:26 AM EST 20 mEq potassium chloride IV premix 10 mEq/ 100 New Bag 10/09/2019 8:45 AM EST 10 mEq mL (PERIPHERAL) 10 mEq 10 mEq, Intravenous, Q1 HR, 3 doses, First dose on Thu10/09/19 at 0710, Last dose on Thu10/09/19 at 0910, Administration of potassium infusion requires the use of an IV pump. May be administered via a PERIPHERAL line or CENTRAL line. Administer each 10 mEq over 1 hour., New 10/09/2019 7:42 AM EST 10 mEq 10/09/2019 6:43 AM EST 10 mEq potassium chloride IV premix 10 mEq/ 100 10/10/2019 8:46 PM EST 10 mEq mL (PERIPHERAL) 10 mEq 10 mEq, Intravenous, Q1 HR, 4 doses, First dose on Thu10/10/19 at 1440, Last dose on Thu10/10/19 at 1740, Administration of potassium infusion requires the use of an IV pump. May be administered via a PERIPHERAL line or CENTRAL line. Administer each 10 mEq over 1 hour., 10/10/2019 6:54 PM EST 10 mEq 10/10/2019 5:33 PM EST 10 mEq potassium chloride IV premix 10 mEq/ 100 10/11/2019 5:33 PM EST 10 mEq mL (PERIPHERAL) 10 mEq 10 mEq, Intravenous, Q1 HR, 6 doses, First dose on Thu10/11/19 at 1010, Last dose on Thu10/11/19 at 1510, Administration of potassium infusion requires the use of an IV pump. May be administered via a PERIPHERAL line or CENTRAL line. Administer each 10 mEq over 1 hour., 10/11/2019 2:33 PM EST 10 mEq 10/11/2019 12:11 PM EST 10 mEq REGULAR insulin (SHORT-Acting) injection 10/05/2019 8:59 PM EST 4 Units 4 Units 4 Units, Intravenous, Q6 HRS (INSULIN), First dose on Thu10/05/19 at 1450, Until Discontinued 10/05/2019 2:57 PM EST 4 Units documented in this encounter Insurance Payer Benefit Plan / Subscriber ID Effective Dates Phone Address Type Group [employer] xxxxxxxxxxxx 2015-Present [employer] MEDICARE BLUE PPO ([phone]) documented as of this encounter Advance Directives Code Status Date Activated Date Inactivated Comments Full Code 10/05/2019 2:03 PM Discussed status with patient and daughter concurrently. Stated what ever patient wants is best and that status can change if her wishes change. Does the patient have decision making capacity? Yes Order was discussed with: Patient I discussed all options and patient/surrogate requested and agreed to: Full Code Full Code 10/05/2019 1:59 PM 10/05/2019 2:03 PM Does the patient have decision making Yes capacity? Order was discussed with: Patient Discussed with both patient and daughter together I discussed all options and Full Code patient/surrogate requested and agreed to:
--- OUTSIDE RECORDS SUMMARY | 2019-10-17 15:40 | XMS REPORT ---
:1930 Author Organization [facility] Care Team Providers Name Role Phone Unavailable Unavailable Unavailable Problems Condition Condition Condition Status Onset Resolution Last Treating Comments Name Details Category Date Date Treatment Clinician Date Pain frequent Pain Mgmt Active 2018-11 Kitty pain 12-14 [place] 11:55: [id number] Cardio edema Cardiovasc Active 2018-11 Kitty ular 12-14 [place] 11:55: [id number] 00 Respiratory dyspnea Respirator Active 2018-11 Kitty present y 12-14 [place] 11:55: [id number] 00 Integument surgical Integument Active 2018-11 Kitty wound 12-14 [place] present 11:55: [id number] 00 Nutrition nutritional Nutrition Active 2018-11 Kitty restriction 12-14 [place] s 11:55: [id number] 00 Elimination urinary Eliminatio Active 2018-11 Kitty incontinenc n 12-14 [place] e 11:55: [id number] 00 Neuro confusion Neuro/Emot Active 2018-11 Kitty present ion 12-14 [place] 11:55: [id number] 00 Activity ADL Activity Active 2018-11 Kitty assistance 12-14 [place] required 11:55: [id number] 00 Activity self-care Activity Active 2018-11 Kitty deficit 12-14 [place] 11:55: [id number] 00 Safety fall risk Safety Active 2018-11 Kitty factor 12-14 [place] present 11:55: [id number] 00 Safety risk for Safety Active 2018-11 Kitty hospitaliza 12-14 [place] tion 11:55: [id number] 00 Safety can be left Safety Active 2018-11 Kitty alone for 12-14 [place] only short 11:55: [id number] periods 00 Safety structural Safety Active 2018-11 Kitty barriers 12-14 [place] present 11:55: [id number] 00 Safety cannot be Safety Active 2018-11 Kitty left alone 12-14 [place] 11:55: [id number] 00 Medication oral med Meds Active 2018-11 Kitty assistance 12-14 [place] required 11:55: [id number] 00 Musculoskel transfer Musculoske Active 2018-11 Kitty etal assistance letal 12-14 [place] required 11:55: [id number] 00 Musculoskel requires Musculoske Active 2018-11 Kitty etal human letal 12-14 [place] assist to 11:55: [id number] leave home 00 Strength/To knowledge/s PT: Active 2018-11 Jonathan ne/Motor kill Strength 12-14 Michelle Control deficit LE: 15:20: [id number] pt 00 Strength/To knowledge/s PT: Active 2018-11 Jonathan ne/Motor kill Strength 12-14 Michelle Control deficit LE: 15:20: [id number] cg 00 Bed mobility/tr PT/OT: Bed Active 2018-11 Jonathan Mobility/Tr ansfer Mobility/T 12-14 Michelle wing device ransfer 15:20: [id number] present 00 Bed transfer PT/OT: Bed Active 2018-11 Jonathan Mobility/Tr deficit: Mobility/T -15 Michelle wing sit/stand ransfer 15:20: [id number] 00 Bed transfer PT/OT: Bed Active 2018-11 Jonathan Mobility/Tr deficit: Mobility/T -15 Michelle wing standing ransfer 15:20: [id number] pivot 00 Bed transfer PT/OT: Bed Active 2018-11 Jonathan Mobility/Tr deficit: Mobility/T -15 Michelle wing toilet/comm ransfer 15:20: [id number] ode 00 Bed transfer PT/OT: Bed Active 2018-11 Jonathan Mobility/Tr deficit: Mobility/T -15 Michelle wing shower/tub ransfer 15:20: [id number] 00 Bed transfer PT/OT: Bed Active 2018-11 Jonathan Mobility/Tr deficit: Mobility/T -15 Michelle wing vehicle ransfer 15:20: [id number] 00 Bed knowledge/s PT/OT: Bed Active 2018-11 Jonathan Mobility/Tr kill Mobility/T 15 Michelle wing deficit: pt ransfer 15:20: [id number] 00 Bed knowledge/s PT/OT: Bed Active 2018-11 Jonathan Mobility/Tr kill Mobility/T 1-15 Michelle ansfer deficit: cg ransfer 15:20: [id number] 00 Balance/End balance/solar project coordination specialist PT/OT: Active 2018-11 Jonathan urance rdination Balance/En 1-15 [place] deficit durance 15:20: [id number] 00 OT: Self self-care OT: Active 2018-11 Jonathan Care deficit Self-Care 1-15 [place] 15:20: [id number] 00 OT: Self knowledge/s OT: Active 2018-11 Jonathan Care kill Self-Care -15 [place] deficit: pt 15:20: [id number] 00 Gait/Locomo gait PT/OT: Active 2018-11 Jonathan tion assistive Gait/Locom 1-15 Kobziewicz problems device otion 15:20: [id number] present 00 Gait/Locomo knowledge/s PT/OT: Active 2018-11 Jonathan tion kill Gait/Locom 1-15 Kobziewicz problems deficit: pt otion 15:20: [id number] 00 Gait/Locomo gait PT/OT: Active 2018-11 Jonathan tion deficit Gait/Locom 1-15 Kobziewicz problems otion 15:20: [id number] 00 Allergies, Adverse Reactions, Alerts Allergy Allergy Status Severity Reaction(s) Onset Inactive Treating Comments Name Type Date Date Clinician Unknown None Active Unknown None Unknown No Known Allergies For This Patient Medications Ordered Filled Start Stop Current Ordering Indication Dosage Frequency Signature Comments Components Medication Medication Date Date Medication? Clinician (SIG) Name Name HYDROcodone HYDROcodone 2018-11 Yes Breiman Unknown Unknown 7.5 7.5 12-14 Ian SANDHU mg-acetamin mg-acetamin ophen 325 ophen 325 mg/15 mL mg/15 mL oral oral solution solution Tylenol 325 Tylenol 325 2018-11 Yes Breiman Unknown Unknown mg tablet mg tablet 12-14 Ian SANDHU Vital Signs Vital Name Observation Time Observation [...]
--- OUTSIDE RECORDS SUMMARY | 2019-10-17 15:40 | XMS REPORT ---
:1930 Author Organization [facility] Care Team Providers Name Role Phone Unavailable Unavailable Unavailable Problems Condition Condition Condition Status Onset Resolution Last Treating Comments Name Details Category Date Date Treatment Clinician Date Pain frequent Pain Mgmt Active 2018-11 Kitty pain 12-14 [place] 11:55: [id number] 00 Cardio edema Cardiovasc Active 2018-11 Kitty ular 12-14 [place] 11:55: [id number] 00 Respiratory dyspnea Respirator Active 2018-11 Kitty present y 12-14 [place] 11:55: [id number] 00 Integument surgical Integument Active 2018-11 Kitty wound 12-14 [place] present 11:55: [id number] 00 Nutrition nutritional Nutrition Active 2018-11 Kitty restriction 12-14 [place] s 11:55: [id number] 00 Elimination urinary Eliminatio Active 2018-11 Kitty incontinenc n 12-14 [place] e 11:55: [id number] 00 Neuro confusion Neuro/Emot Active 2018-11 Kitty present ion 12-14 [place] 11:55: [id number] 00 Activity ADL Activity Active 2018-11 Kitty assistance 12-14 [place] required 11:55: [id number] 00 Activity self-care Activity Active 2018-11 Kitty deficit 12-14 [place] 11:55: [id number] 00 Safety fall risk Safety Active 2018-11 Kitty factor 12-14 [place] present 11:55: [id number] 00 Safety risk for Safety Active 2018-11 Kitty hospitaliza 12-14 [place] tion 11:55: [id number] 00 Safety structural Safety Active 2018-11 Kitty barriers 12-14 [place] present 11:55: [id number] 00 Safety cannot be Safety Active 2018-11 Kitty left alone 12-14 [place] 11:55: [id number] 00 Medication oral med Meds Active 2018-11 Kitty assistance 12-14 [place] required 11:55: [id number] 00 Musculoskel transfer Musculoske Active 2018-11 Kitty etal assistance letal 12-14 [place] required 11:55: [id number] 00 Musculoskel requires Musculoske Active 2018-11 Kitty etal human letal 12-14 [place] assist to 11:55: [id number] leave home 00 Safety can be left Safety Active 2018-11 Jonathan alone for -15 Michelle only short 15:20: [id number] periods 00 Strength/To knowledge/s PT: Active 2018-11 Jonathan ne/Motor kill Strength 15 Michelle Control deficit LE: 15:20: [id number] pt 00 Strength/To knowledge/s PT: Active 2018-11 Jonathan ne/Motor kill Strength 12-14 [place] Control deficit LE: 15:20: [id number] cg 00 Bed mobility/tr PT/OT: Bed Active 2018-11 Jonathan Mobility/Tr ansfer Mobility/T -15 Michelle wing device ransfer 15:20: [id number] present 00 Bed transfer PT/OT: Bed Active 2018-11 Jonathan Mobility/Tr deficit: Mobility/T 1-15 Michelle wing sit/stand ransfer 15:20: [id number] 00 Bed transfer PT/OT: Bed Active 2018-11 Jonathan Mobility/Tr deficit: Mobility/T 1-15 Michelle wing standing ransfer 15:20: [id number] pivot 00 Bed transfer PT/OT: Bed Active 2018-11 Jonathan Mobility/Tr deficit: Mobility/T 1-15 Michelle wing toilet/comm ransfer 15:20: [id number] ode 00 Bed transfer PT/OT: Bed Active 2018-11 Jonathan Mobility/Tr deficit: Mobility/T 1-15 Michelle wing shower/tub ransfer 15:20: [id number] 00 Bed transfer PT/OT: Bed Active 2018-11 Jonathan Mobility/Tr deficit: Mobility/T 1-15 Michelle wing vehicle ransfer 15:20: [id number] 00 Bed knowledge/s PT/OT: Bed Active 2018-11 Jonathan Mobility/Tr kill Mobility/T 1-15 Michelle wing deficit: pt ransfer 15:20: [id number] 00 Bed knowledge/s PT/OT: Bed Active 2018-11 Jonathan Mobility/Tr kill Mobility/T 1-15 [place] ansfer deficit: cg ransfer 15:20: [id number] 00 Balance/End balance/information coordinator PT/OT: Active 2018-11 Jonathan urance rdination Balance/En 1-15 [place] deficit durance 15:20: [id number] 00 OT: Self self-care OT: Active 2018-11 Jonathan Care deficit Self-Care 1-15 [place] 15:20: [id number] 00 OT: Self knowledge/s OT: Active 2018-11 Jonathan Care kill Self-Care 1-15 [place] deficit: pt 15:20: [id number] 00 Gait/Locomo gait PT/OT: Active 2018-11 Jonathan tion assistive Gait/Locom 1-15 [place] problems device otion 15:20: [id number] present 00 Gait/Locomo knowledge/s PT/OT: Active 2018-11 Jonathan tion kill Gait/Locom 1-15 [place] problems deficit: pt otion 15:20: [id number] 00 Gait/Locomo gait PT/OT: Active 2018-11 Jonathan tion deficit Gait/Locom 1-15 [place] problems otion 15:20: [id number] 00 Allergies, Adverse Reactions, Alerts Allergy Allergy [...]
--- NOTE | 2019-10-17 15:55 | ED ---
Complex/Multi-Sys Presentation - HPI Summary HPI Summary: Patient with history of recent surgery for intestinal blockage and gallstone removal on 10/06/19, discharged 10/14, complains of decreased energy, SOB, decreased by mouth intake, diarrhea, burning with urination and increased urinary frequency starting yesterday. Denies CP, no active SOB at time of exam. Patient denies speech change, facial droop, unilateral weakness, AMS, vision change, dizziness, fever, cough, sore throat, CP, N/V, abdominal pain. Patient lives alone, ambulated normally presurgery. Ambulating with walker since surgery. Patient has home care 3 times a week for wound vac maintenance. Family states patient seemed normal until yesterday. Patient has not been taking any pain medication or antibiotics status post surgery. Medical history is none. Denies prior cardiac or pulmonary history. Abdominal surgical history includes only most recent surgery for intestinal obstruction. Operation performed at [place], family cannot remember surgeons name. - History Of Current Complaint Chief Complaint: EDWeakness Time Seen by Provider: 10/17/19 15:17 Hx Obtained From: Patient, Family/Director Of Transportation Onset/Duration: Gradual Onset, Lasting Days Timing: Intermittent, Lasting: Severity Currently: Moderate Severity Initially: Mild Associated Signs And Symptoms: Positive: Weakness, Diarrhea, Decreased Oral Intake Related History: Recent Hospitalization - Allergies/Home Medications Allergies/Adverse Reactions: Allergies Allergy/AdvReac Type Severity Reaction Status Date / Time No Known Allergies Allergy Verified 10/04/19 23:39 PMH/Surg Hx/FS Hx/Imm Hx Endocrine/Hematology History: Denies: Hx Anticoagulant Therapy, Hx Diabetes Cardiovascular History: Reports: Hx Hypertension Denies: Hx Cardiac Arrest History: Denies: Hx Dialysis, Hx Renal Disease Sensory History: Reports: Hx Contacts or Glasses - GLASSES Denies: Hx Deafness, Hx Hearing Aid Opthamlomology History: Reports: Hx Contacts or Glasses - GLASSES EENT History: Denies: Hx Deafness Neurological History: Denies: Hx CVA - Surgical History Surgery Procedure, Year, and Place: ANESTHESIA WITH CHILDBIRTH Hx Anesthesia Reactions: No Infectious Disease History: No Infectious Disease History: Denies: Traveled Outside the [place] in Last 30 Days - Family History Known Family History: Positive: Non-Contributory - Social History Alcohol Use: Daily Alcohol Amount: one glasss of wine Substance Use Type: Reports: None Smoking Status (MU): Former Smoker Amount Used/How Often: 2-3 CIGARETTES PER DAY X 20 YEARS Have You Smoked in the Last Year: No Review of Systems Positive: Fatigue Eyes: Negative ENT: Negative Cardiovascular: Negative Positive: Shortness Of Breath Positive: Diarrhea Genitourinary: Negative Musculoskeletal: Negative Skin: Negative Positive: Weakness Psychological: Normal All Other Systems Reviewed And Are Negative: Yes Physical Exam - Summary Physical Exam Summary: Mild diffuse abdominal pain with palpation. Wound VAC looks intact and functional. Incisions appear clean and dry and intact. No erythema, purulent discharge. Lung sounds clear to auscultation bilaterally. Irregular rate and rhythm. Very mild bilateral pedal edema. Neuro exam normal. Alert and oriented. Triage Information Reviewed: Yes Vital Signs On Initial Exam: Initial Vitals Temp Pulse Resp BP Pulse Ox 99.5 F 90 18 134/55 96 10/17/19 14:05 10/17/19 14:05 10/17/19 14:05 10/17/19 14:05 10/17/19 14:05 Vital Signs Reviewed: Yes Appearance: Positive: Well-Appearing Skin: Positive: Warm Head/Face: Positive: Normal Head/Face Inspection Eyes: Positive: Normal Neck: Positive: Supple Respiratory/Lung Sounds: Positive: Clear to Auscultation Cardiovascular: Positive: IRR, Tachycardia Abdomen Description: Positive: Nontender Musculoskeletal: Positive: Normal Neurological: Positive: Normal Psychiatric: Positive: Normal AVPU Assessment: Alert - Marisol Coma Scale Best Eye Response: 4 - Spontaneous Best Motor Response: 6 - Obeys Commands Best Verbal Response: 5 - Oriented Coma Scale Total: 15 Procedures - Sedation Patient Received Moderate/Deep Sedation with Procedure: No Diagnostics - Vital Signs Vital Signs Temp Pulse Resp BP Pulse Ox 10/17/19 14:05 99.5 F 90 18 134/55 96 - Laboratory Result Diagrams: 10/17/19 16:55 10/17/19 16:55 Lab Statement: Any lab studies that have been ordered have been reviewed, and results considered in the medical decision making process. Complex Multi-Symp Course/Dx Course Of Treatment: Patient with history of recent surgery for intestinal blockage and gallstone removal on 10/06/19, discharged 10/14, complains of decreased energy, SOB, decreased by mouth intake, diarrhea, burning with urination and increased urinary frequency starting yesterday. Denies CP, no active SOB at time of exam. Patient denies speech change, facial droop, unilateral weakness, AMS, vision change, dizziness, fever, cough, sore throat, CP, N/V, abdominal pain. Patient lives alone, ambulated normally presurgery. Ambulating with walker since surgery. Patient has home care 3 times a week for wound vac maintenance. Family states patient seemed normal until yesterday. Patient has not been taking any pain medication or antibiotics status post surgery. Medical history is none. Denies prior cardiac or pulmonary history. Abdominal surgical history includes only most recent surgery for intestinal obstruction. Operation performed at [place], family cannot remember surgeons name. Tachycardic heart rate around 110. Intermittently tachypneic. Vital signs otherwise within normal limits. No pain. WBC 21. CRP 146. First troponin 0.08. EKG heart rate 78, sinus rhythm, normal P axis, same as prior. Chest x-ray negative for acute process. CT abdomen and pelvis positive for infectious enterocolitis. Right greater than left pleural effusions and associated volume loss. Left ovarian cyst. Discussed patient with attending Dr. Soria who recommended admission. Patient admitted to hospitalist. - Diagnoses Provider Diagnoses: Enterocolitis, Elevated troponin Discharge ED - Sign-Out/Discharge Documenting (check all that apply): Patient Departure - Discharge Plan Condition: Stable Disposition: ADMITTED TO [facility] - Billing Disposition and Condition Condition: STABLE Disposition: Admitted to [facility] - Attestation Statements Provider Attestation: I agree GABRIEL documentation above, briefly a 89 y/o F w recent SBO p/w diarrhea and leukocytosis found to have colitis. Plan for abx, admit to medicine given comorbidities and recent hospitalization. Cdiff ordered Edgardo Soria MD
[2019-10-17] MEDS ORDERED: NS 0.9% 1000 ML** 1,000 ML IV ONE ×2 (16:23→21:41)
[2019-10-17 17:13] LABS: Hematocrit 40 % (35-47); Hemoglobin 12.7 g/dL (12.0-16.0); Mean Corpuscular HGB Conc 32 g/dL (31-36); Mean Corpuscular Hemoglobin 31 pg (27-31); Mean Corpuscular Volume 97 fL (80-97); Platelet Count 249 10^3/uL (150-450); Red Blood Count 4.08 10^6 /uL (3.70-4.87); Red Cell Distribution Width 15 % (10-15); White Blood Count 21.3 10^3/uL (3.5-10.8)
[2019-10-17 17:29] LABS: Albumin 3.1 g/dL (3.2-5.2); Calcium 8.2 mg/dL (8.6-10.3); Total Bilirubin 0.5 mg/dL (0.2-1.0)
[2019-10-17 17:35] LABS: Albumin/Globulin Ratio 1.1 (1-3); C Reactive Protein 146.3 mg/L (<8.01); EGFR African American 85.8 (>60); EGFR Non-African American 70.9 (>60); Globulin 2.7 g/dL (2-4); Total Protein 5.8 g/dL (6.4-8.9)
[2019-10-17 17:38] LABS: Troponin I 0.08 ng/mL (<0.04)
[2019-10-17 17:46] LABS: ABS Eosinophils 0.1 10^3/ul (0-0.6); ABS Lymphocytes 0.9 10^3/ul (1.0-4.8); ABS Monocytes 1.6 10^3/ul (0-0.8); ABS Neutrophils 18.7 10^3/ul (1.5-7.7); Eosinophil % 0.3 %; Lymphocyte % 4.2 %
[2019-10-17] MEDS ORDERED: Iohexol 300* (CONTRAST) 10 ML SDV IV ONE (18:06)
[2019-10-17 18:43] LABS: Activated Partial Thrombo Time 27.4 seconds (26.0-38.0); INR 1.07 (0.82-1.09)
[2019-10-17] MEDS ORDERED: Piperacillin/Tazobac ADVAN(*) 3.375 GM in NS 0.9% 100 ML* 100 ML IVPB ONE (20:35)
[2019-10-17] MEDS ORDERED: Vancomycin(*) 1,000 MG in NS 0.9% 250 ML* 250 ML IVPB ONE (20:56)
[2019-10-17] MEDS ORDERED: Ondansetron INJ* 2 MG/ML VIAL IV PRN (20:58)
[2019-10-17] MEDS ORDERED: Acetaminophen TAB* 325 MG PO PRN (20:58)
[2019-10-17] MEDS ORDERED: Vancomycin per Pharmacy* NOTE FOLLOW UP SCH (21:00)
[2019-10-17] MEDS ORDERED: Zosyn per Pharmacy* NOTE FOLLOW UP SCH (21:00)
[2019-10-17 21:14] LABS: Troponin I 0.09 ng/mL (<0.04)
[2019-10-17] MEDS ORDERED: Azithromycin 500 mg/250 ml NS 500 MG/250 ML BAG IVPB ONE (21:30)
[2019-10-17 21:53] LABS: Magnesium 1.6 mg/dL (1.9-2.7)
[2019-10-17] MEDS ORDERED: cefTRIAXone(*) 1 GM in NS 0.9% 50 ML* 50 ML IVPB SCH (22:00)
[2019-10-17] MEDS: Enoxaparin(*) 40 MG/0.4 ML SYR SUBCUT SCH (22:02)
--- NOTE | 2019-10-17 23:29 | HP ---
ADMISSION HISTORY AND PHYSICAL: DATE OF ADMISSION: 10/17/19 PRIMARY CARE PHYSICIAN: The patient has none. PROVIDER: Serge Steiner NP ATTENDING PHYSICIAN: Dr. Carrillo.* (DICTATED BY SERGE STEINER NP) CHIEF COMPLAINT: Shortness of breath, urinary frequency and diarrhea. HISTORY OF PRESENT ILLNESS: This is an 89-year-old female with a past medical history significant for macular degeneration and recent hospitalization for intestinal surgery, who came to the emergency room on 10/17/19 after waking up this morning short of breath with diarrhea and frequent urination, so the patient had originally been seen in the emergency room on 10/04/19 all for bowel obstruction and subsequently had been transferred to [facility] because the patient needed an ERCP at that time and there was no physician available to do so. There it is slightly unclear as to what happened , though the patient had surgery on the for what her daughter reported to be possible lysis of adhesions, though stomach was left open. No further surgery was determined to be needed and wound is now healing via secondary intention with wound VAC. The patient had also had a gallstone removal at that time via ERCP. She was discharged to home on , and developed diarrhea starting on Thursday, which was described as liquid explosive and has become progressively more liquid, has about 5 bowel movements a day and has become progressively weaker. Yesterday, her son said that she was able to walk to the commode on her own volition, though today in the emergency room, he is provided essentially a max assist to help her get to the commode. In the emergency room, she received a liter of fluid. Labs were drawn. Chest x-ray, EKG and abdominal pelvic CT scan performed and the hospitalists were asked to evaluate the patient for admission. I witnessed the son transfer the patient to the commode. The patient was very weak, unable to support her own weight, felt hot to touch, would respond to direct questioning, though appeared listless and flushed, toxic in appearance. PAST MEDICAL HISTORY: Significant for macular degeneration. PAST SURGICAL HISTORY: Lysis of adhesions with gallstone removal on 10/06/19. HOME MEDICATIONS: Takes PreserVision AREDS 2 caps p.o. q.a.m. ALLERGIES: None. FAMILY HISTORY: Cancer. The patient is noncontributory otherwise. SOCIAL HISTORY: Quit smoking 16 years ago, had smoked less than a pack a day for 30 years. Denies any alcohol or recreational substance use. She is retired. Lives at home alone, though since she has come back from her stay at [facility], she has had family members staying with her 22/06. REVIEW OF SYSTEMS: It was positive for poor appetite, feeling feverish, chilled. Denied any chest pain, cough, or shortness of breath. Positive for diarrhea and abdominal pain with palpation, though urinary frequency. Denied any pressure or burning. PHYSICAL EXAMINATION GENERAL: This is a well-developed, well-groomed female seen resting on the stretcher, toxic in appearance, flushed and lethargic. VITAL SIGNS: Temperature 99.5 Fahrenheit, 106 pulse, 22 respirations, 95% oxygen on 2 L, and 152/89 blood pressure. HEENT: Eyes: Conjunctivae pink and moist. Arcus senilis noted. Ringing in bilateral ears. PERRLA. Oropharynx clear. Mucous membranes dry. NECK: Supple. RESPIRATORY: Fine crackles to right lower lung field. All other lung cameron clear on 2 L of oxygen via nasal cannula. CARDIAC: S1, S2 present. Heart rate irregular. No murmurs, gallops, or rubs appreciated. ABDOMEN: Softly distended. Tender throughout to palpation with hypoactive bowel sounds x4. MUSCULOSKELETAL: 4/5 strength in bilateral upper and lower extremities. 2+ positive pedal pulses. Cap refill less than 3 seconds. Moves all extremities. NEUROLOGICAL: No focal deficits appreciated. Sensation intact to light touch throughout. PSYCH: Alert and oriented x3, though blunted affect. SKIN: No rashes or lesions appreciated. Midline abdominal incision with wound VAC suctioning at 125 mmHg. No drainage in canister. Skin surrounding wound VAC is benign. DIAGNOSTIC STUDIES/LAB DATA: Chest x-ray showed chronic pleural changes with no definite pneumonia. Abdominal pelvic CT scan showed compressive atelectasis posterior lower lobes, infectious enterocolitis, new right greater than left pleural effusions associated with volume loss, left ovarian cyst, no followup necessary. EKG showed sinus rhythm with PACs. Pertinent lab data: White blood cell count 21.3, carbon dioxide 21, glucose 123 , lactic acid 1.3, calcium 8.2. Troponin 0.08 which has risen to 0.09. C- reactive protein 146.30, total protein 5.8, albumin 3.1. At the time of this dictation, we are awaiting results of the BNP. ASSESSMENT AND PLAN: My impression is that this is an 89-year-old female with a past medical history significant for macular degeneration, admitted on for likely Clostridium difficile, possibly urinary tract infection, possible pneumonia. 1. Enterocolitis, rule out Clostridium difficile. The patient has been having 5 liquid explosive bowel movements per day since Thursday. Stool has already been sent for culture and for Clostridium difficile. Placed on oral vancomycin and contact precautions. We will keep the patient hydrated with normal saline at 100 mL an hour. Encourage p.o. fluids as well. 2. Elevated troponins. Troponins are significantly improved from her previous ER visit on 10/05/19, which showed troponin of 0.16, this is likely in the setting of ischemic demand. The patient has already had 1 L of saline, we will give another liter of saline. Awaiting records from [facility] to see if they performed an echocardiogram there as her children were unsure if this had been done or not. If unable to obtain records, we will suggest getting a transthoracic echocardiogram in the a.m., otherwise we will trend troponins every 3 hours until they decrease. EKG showed no ST changes. 3. Possible pneumonia. We will send urine for Legionella and Strep pneumoniae antigen. We will prophylactically treat the patient with IV ceftriaxone and azithromycin. Blood cultures have been sent including this in the differential due to her shortness of breath and being hospitalized for more than 48 hours. She is a risk for hospital acquired pneumonia. 4. Macular degeneration. May continue the AREDS capsules if family is able to provide. 5. DVT prophylaxis: SCDs, Lovenox. 6. Code status is DNR. Family states that MOLST form is at home, though states that she wishes to be a DNR. If they are unable find it, we will fill out another one. 7. Condition is guarded. 8. Disposition is admit OBV to tele. TIME SPENT: Time spent on the patient is 60 minutes with more than half of this spent [id number]. SERGE STEINRE, WHEEL ASSEMBLER [id number]/[facility] #: [id number] [facility]
[2019-10-18] MEDS: NS 0.9% 1000 ML** 1,000 ML IV SCH ×2 (01:13→12:24)
[2019-10-18] MEDS: Vancomycin CAP* 125 MG CAP PO SCH ×2 (09:42→12:23)
[2019-10-18 17:06] LABS: Urine Appearance Cloudy; Urine Bilirubin Negative (Negative); Urine Blood 2+ (Negative); Urine Color Yellow; Urine Glucose Negative (Negative); Urine Ketones 1+ (Negative); Urine Nitrite Negative (Negative); Urine Protein Negative (Negative); Urine Specific Gravity 1.017 (1.010-1.030); Urine Urobilinogen Negative (Negative)
[2019-10-18 17:10] LABS: Urine Bacteria Absent (Absent); Urine Red Blood Cell Trace(0-2/hpf) (Absent); Urine Squamous Epithelial Cell Present (Absent); Urine White Blood Cell 2+(11-20/hpf) (Absent)
--- NOTE | 2019-10-18 18:20 | PN ---
Subjective Date of Service: 10/18/19 Interval History: Patient seen and examined. Son and daughter at bedside for most of history. Patient is sleepy, arousable. States pain in her RLQ with palpation. Denies vomiting, mild nausea, no current diarrhea. No chest pain, no acute SOB. Has desaturations to high 80's off O2. Objective Active Medications: Acetaminophen (Tylenol Tab*) 650 mg PO Q4H PRN PRN Reason: MILD PAIN or TEMP > 100.4 Enoxaparin Sodium (Lovenox(*)) 40 mg SUBCUT Q24H [facility] Last Admin: 10/17/19 22:02 Dose: 40 mg Azithromycin 250 mg/ Sodium (Chloride) 250 mls @ 250 mls/hr IVPB Q24H [facility] Stop: 10/22/19 21:59 Ceftriaxone Sodium 1 gm/ (Sodium Chloride) 50 mls @ 100 mls/hr IVPB Q24H [facility] Stop: 10/22/19 21:59 Last Admin: 10/17/19 23:08 Dose: 100 mls/hr Vital Signs - 8 hr 10/18/19 10/18/19 13:18 15:15 Temperature 98.1 F 97.5 F Pulse Rate 99 96 Respiratory 22 22 Rate Blood Pressure 106/33 132/48 (mmHg) O2 Sat by Pulse 99 90 Oximetry Oxygen Devices in Use Now: Nasal Cannula Appearance: drowsy, arousable Eyes: PERRLA Ears/Nose/Mouth/Throat: Mucous Membranes Moist Neck: NL Appearance and Movements; NL JVP, Trachea Midline Respiratory: Symmetrical Chest Expansion and Respiratory Effort, Clear to Auscultation, - Cardiovascular: NL Sounds; No Murmurs; No JVD, RRR - regular to mild tachycardia , No Edema Abdominal: - - tender RLQ with mild guarding, midline incision with wound vac, no erythema or drainage noted Extremities: No Clubbing, Cyanosis Skin: No Rash or Ulcers Neurological: - - alert to person and place, general weakness Nutrition: - - clears Result Diagrams: 10/17/19 16:55 10/17/19 16:55 Microbiology and Other Data: Microbiology 10/17/19 16:08 Blood Culture - Preliminary Blood Venous No Growth Day 1 10/17/19 08:27 Stool Gross Appearance - Final Stool C. difficile DNA Amplification - Final Assess/Plan/Problems-Billing Assessment: This is an 89 year old female with no significant medical history, that had recent ex lap with wound vac and ERCP at [facility] that presents to the ED with complaints of fatigue, weakness and copious diarrhea 3 days after discharge from [facility]. - Patient Problems (1) Infectious colitis Code(s): A09 - INFECTIOUS GASTROENTERITIS AND COLITIS, UNSPECIFIED SNOMED Code (s): 74549850 Comment: - CT scan with colitis - Had a formed stool. Cdiff PCR canceled per lab, stool cultures pending - Had 2 liters NS, will DC IVF and continue clear liquids, patient is volume overloaded and SOB - Surgery consulted to evaluate CT imaging and records from [facility] - PO vanco discontinued, will place on cipro and flagyl to cover for GI pathogens pending recs from surgery and ID (2) Sepsis Comment: - Evaluated chest imaging, no obvious infiltrate - Likely 2/2 infectious colitis, may be bacteremic - Follow cultures (blood, stool, urine) - Had fluid bolus in ED, will DC fluids 2/2 fluid overload - LA <2 - Tachycardia resolved (3) Fluid overload Code(s): E87.70 - FLUID OVERLOAD, UNSPECIFIED SNOMED Code(s): 03050782 Comment: - 2/2 aggressive fluids - continue supplemental O2, will hold off on diuretics for now, respiratory status is stable - ECHO ordered (no ECHO at [facility] in records received) (4) Elevated troponin Code(s): R79.89 - OTHER SPECIFIED ABNORMAL FINDINGS OF BLOOD CHEMISTRY SNOMED Code(s): 620448970 Comment: - Likely demand in presence of infection/sepsis - Will obtain ECHO - EKG with no acute changes - Final trop refused but patient today, as she refused AM labs, discussed with family; at this time, patient is not stable for any cardiac work up or stress test (5) Hx SBO Code(s): Z87.19 - PERSONAL HISTORY OF OTHER DISEASES OF THE DIGESTIVE SYSTEM SNOMED Code(s): 532550791529110 Comment: - SBO 2/2 internal hernia with ex lap on 10/06/19 @ [facility] - Also had ERCP at that time with resolution of stone - Has wound vac to abdomen, requires dressing changes 3x weekly - Surgery consulted, unclear if any of her symptomology is related to recent surgery, appreciate recs (6) DNR (do not resuscitate) Comment: - lovenox SQ (7) DVT prophylaxis Code(s): Z29.9 - ENCOUNTER FOR PROPHYLACTIC MEASURES, UNSPECIFIED SNOMED Code( s): 086111472 Comment: - Reviewed advanced directive, MOLST updated Status and Disposition: Inpatient, guarded. Dispo TBD.
[2019-10-18] MEDS ORDERED: Ciprofloxacin 400MG IVPREMIX(* 400 MG/200 ML BAG IVPB SCH (19:30)
--- NOTE | 2019-10-18 19:41 | PN ---
Progress Note - Progress Note Date of Service: 10/18/19 Note: Brief General Surgery Note: (full note dictated) cc: abdominal wound; ?colitis We were asked to see this 89 yo female who is s/p recent laparotomy w/ reduction and repair of an internal hernia with closed loop obstruction. From the outside notes from [facility] there was no bowel resection. She also underwent ERCP with sphincterotomy and clearance of a CBD stone. Her abd wound was left open and a VAC wound dressing was placed. This was last changed on 10/14. She presented to the ED 10/17 because of ongoing and worsening diarrhea and generalized weakness. She also had some SOB at times. She and her family deny abd pain, nausea or vomiting. PE: tmax 99.5, though patient feels warm to my touch Gen: elderly female lying in bed; NAD Heart: reg w/ occ skipped beat Lungs: fairly clear Abd: VAC dressing in place (small area in the midline measuring ~ 8-10 cm x 2.5 -3 cm in width. Scant drainage in VAC collection chamber.) I did not take the dressing down as I was expecting my attending, Dr. Singletary, to be coming by to examine the patient. BS+. Mildly distended and tympanitic. Soft. No significant tenderness. Extr: mild edema of both upper and lower extremities. Labs: WBC 21.3; Hgb 12.7; lytes, BUN, cr wnl; lactate wnl; CRP 146; mildly elevated troponins; BNP 1175; LFTs wnl. CT abd and pelvis w/ IV contrast only: (reviewed personally) bilat small pleural effusions; bilat compressive atelectasis posteriorly; mild to mod dilation of proximal SB loops w/ mild mesenteric stranding; some distal colonic wall thickening w/ mild stranding; read by radiology as c/w infectious enterocolitis, though I believe the changes could be postoperative. A: sepsis w/ diarrhea; open abd wound (no additional areas of surgical concern) P discussed w/ hospitalist; would recommend repeat stool sample for c diff if continues to be liquid. Will inspect wound directly in a.m. if not specifically examined by Dr. Singletary, though no sig concern by physical exam. Will follow.
[2019-10-18] MEDS: Enoxaparin(*) 40 MG/0.4 ML SYR SUBCUT SCH (20:30)
[2019-10-18] MEDS ORDERED: Azithromycin IV(*) 250 MG in NS 0.9% 250 ML* 250 ML IVPB SCH (22:00)
[2019-10-18] MEDS: metroNIDAZOLE IV 500 MG/100ML* 500 MG/100 ML BAG IVPB SCH (22:43)
--- NOTE | 2019-10-18 22:46 | CONS ---
CC: Dr. Ian Alvares * SURGICAL CONSULTATION NOTE: DATE OF CONSULT: 10/18/19 ATTENDING SURGEON: Jennifer Singletary MD. CHIEF COMPLAINT: Abdominal wound and question of colitis. HISTORY OF PRESENT ILLNESS: This is an 89-year-old generally healthy female who was transferred from the [facility] ED to [facility] on 10/05/19 for evidence of small-bowel obstruction and choledocholithiasis. That same date, she underwent an ERCP with sphincterotomy and common bile duct stone extraction as well as exploratory laparotomy with reduction and repair of an internal hernia with closed loop obstruction. There was apparently no bowel resection according to the outside records. She was returned to the OR the next day for abdominal wall closure. The fascia was closed, but the skin and subcutaneum were left opened with wound VAC dressing applied thereafter. She was discharged on 10/13/19. Beginning 10/15/19, she was experiencing loose stools, which increased to approximately 5 per day. She had accompanying weakness and was advised by the home nurse on 10/17/19 to be seen in the ED. Her history was obtained from her chart record, the patient herself, and her son and daughter who were present. The patient denies any abdominal pain, nausea, or vomiting. She has felt gassy. She feels dry and would like to drink , but does not have much appetite. She feels generally weak. She was not discharged on any antibiotics from [facility]. Lab work from admission and CT were reviewed (see below). PAST MEDICAL HISTORY: Unremarkable for any chronic medical problems. PAST SURGICAL HISTORY: Previous surgeries: As above. MEDICATIONS: Her home medications include multiple supplements only. Her in- hospital medications at present include ceftriaxone and azithromycin as well as subcutaneous Lovenox. She did receive an oral dose of vancomycin in the ED. DRUG ALLERGIES: None. The remainder of her past medical history, family history, and social history are outlined in her chart record and are not repeated here. REVIEW OF SYSTEMS: As above. In addition, Respiratory: Occasional bouts of shortness of breath since discharge. Cardiovascular: She has had some peripheral edema, which has remained relatively stable since discharge to home. : She has had some minor complaints of dysuria. PHYSICAL EXAM: Height 5 feet 3 inches, weight 88 pounds. T-max of 99.5, blood pressure 131/60, pulse ranging from 92 to 111, respirations 18 to 20, room air saturation 97% to 99%; but then placed on 2 L for saturation 93%. Is and Os were not apparently recorded completely. General: Elderly female, lying in bed , in no acute distress. Her eyes are closed most of the interview and exam. Skin: Warm and dry. No suspicious rashes or lesions noted. See also below for abdomen. Heart: Regular rate and rhythm with occasional skipped beat. Lungs: Clear to auscultation. No rales or wheezes. Abdomen: Relatively small midline wound with VAC dressing in place. Dimensions are approximately 8 to 10 cm x 2.5 to 3 cm. I did not elect to remove the VAC dressing as I anticipated my attending, Dr. Singletary, would be subsequently examining the patient and possibly removing the dressing. The abdomen is mildly distended and tympanitic. Bowel sounds are present and fairly normoactive. Abdomen is soft and without significant tenderness. No palpable masses. Genitalia: Not done. Rectal: Not done. Extremities: Trace to 1+ edema for both upper and lower extremities. No tenderness. DIAGNOSTIC STUDIES/LAB DATA: Laboratory of note: White blood cell count 21,300 ; hemoglobin 12.7. Electrolytes: BUN and creatinine are normal, as are liver function tests. Lactic acid is normal at 1.3. Magnesium is slightly low at 1.6. CRP elevated at 146, mild troponin elevation at 0.08 and 0.09, BNP is 1175. CT scan of the abdomen and pelvis with IV contrast only from 10/17/19 was reviewed personally. It shows bilateral small pleural effusions, some compressive atelectasis posteriorly. There are some mildly to moderately dilated proximal small-bowel loops with mild mesenteric stranding. Likewise, there is what appears to be some wall thickening of the distal colon with mild stranding. These findings were felt by the radiologist to be consistent with infectious enterocolitis; however, I believe they may also be related to postoperative changes. IMPRESSION AND PLAN: Status post recent laparotomy and ERCP with sphincterotomy , now with open abdominal wound, currently treated with VAC dressing and of low suspicion of source of apparent sepsis. An earlier stool sample had been declined by the lab because it was formed. If her stools continue to be liquid , they will be resubmitted for Clostridium difficile. She has also been consulted by infectious diseases. If Dr. Singletary does not specifically remove the VAC dressing, this will be done by our team in the morning and the wound assessed directly. There are no other surgical issues of concern at the present time. We will follow while she is an inpatient. ROSENDA GOETZ [id number]/[facility] #: [id number] MTDLila
[2019-10-19] MEDS: metroNIDAZOLE IV 500 MG/100ML* 500 MG/100 ML BAG IVPB SCH (09:50)
[2019-10-19] MEDS ORDERED: Lidocaine 2% PF * 5 ML VIAL INJ ONE (11:28)
--- NOTE | 2019-10-19 13:29 | ECHO ---
*[facility]* [place] [address] Fax #: [phone] Transthoracic Echocardiogram Patient: Samra Garcia : 1930 Study Date: 10/19/2019 Age: 89 Gender: F HR: 90 bpm Height: 63 in /160 cm BSA: 1.36 m^2 Weight: 87.8 lb /39.9 kg BMI: 15.6 kg/m^2 *Dubbing Machine Operator: * Nirmala Carlson [facility] *Referring Physician: * Sydnie Feliciano *Reading Physician: * Giancarlo Paz MD Indications: SOB. History: Risk factors: Former tobacco use. Labs, prior tests, procedures, and surgery: Surgery. Recent laparotomy and ERCP with sphincterotomy with open abdominal wound. Conclusions Summary: - Left ventricle: The cavity size is normal. Wall thickness is at the upper limits of normal. Systolic function is normal. The estimated ejection fraction is 55-60%. - Right ventricle: The cavity size is normal. Wall thickness is mildly increased. Systolic function is low normal. - Left atrium: The atrium is mildly dilated. - Right atrium: The atrium is mildly dilated. - Mitral valve: There is mild regurgitation, directed eccentrically. - Aortic valve: The valve is trileaflet. The leaflets are mildly thickened. Study data: Transthoracic echocardiogram. Procedure: Transthoracic echocardiography was performed. Image quality was fair. The study was technically limited due to surgical dressings. Complete 2D, spectral Doppler, and color flow Doppler. Location: Bedside. Patient status: Inpatient. Patient room number: 434. No prior study is available for comparison. Rhythm: Normal sinus rhythm with PAC's. Findings Left ventricle: The cavity size is normal. Wall thickness is at the upper limits of normal. Systolic function is normal. The estimated ejection fraction is 55-60%. Wall motion is normal; there are no regional wall motion abnormalities. Left ventricular diastolic function parameters are indeterminate. Right ventricle: The cavity size is normal. Wall thickness is mildly increased. Systolic function is low normal. Left atrium: The atrium is mildly dilated. Right atrium: The atrium is mildly dilated. Mitral valve: The leaflets are mildly thickened. There is no evidence of stenosis. There is mild regurgitation, directed eccentrically. Aortic valve: The valve is trileaflet. The leaflets are mildly thickened. There is no evidence of stenosis. There is no significant regurgitation. Tricuspid valve: The leaflets are normal thickness. There is no evidence of stenosis. There is trace regurgitation. Pulmonic valve: The leaflets are normal thickness. There is no evidence of stenosis. There is trace regurgitation. Aorta: Aortic root: The aortic root is appears normal. Ascending aorta: The ascending aorta is appears normal. Aortic arch: The aortic arch is appears normal. Pericardium: There is no significant pericardial effusion. Pulmonary arteries: The main pulmonary artery is normal-sized. Systolic pressure can not be accurately estimated. Systemic veins: Inferior vena cava: The vessel is normal in size. There is (>= 50%) respiratory change in the IVC dimension. Measurements Left ventricle Value Ref Right atrium Value Ref MARY BETH, LAX 5.0 cm 3.8 - 5.2 SI dim, ES (H) 5.6 cm 3.4 - 5.3 ESD, LAX 3.4 cm 2.2 - 3.5 ML dim, ES, A4C (H) 4.8 cm 2.6 - 4.4 FS, LAX 33 % 27 - 45 SI dim, ES, A4C (H) 5.6 cm 3.4 - 5.3 PW, ED, LAX (H) 1.0 cm 0.6 - 0.9 Estimated RAP 3 mm Hg --------- FS 33 % 27 - 45 PW, ED (H) 1.0 cm 0.6 - 0.9 Aortic valve Value Ref PW/ID, ED 0.2 Apolonia diam, ED 1.9 cm --------- E', lat apolonia, TDI 10.2 cm/sec >=10.0 Peak v, S 1.7 m/sec --- ------ E/e', lat apolonia, 9 VTI, S 36.0 cm ------ --- TDI Mean grad, S 6.0 mm Hg --------- E', med apolonia, TDI 9.5 cm/sec >=7.0 Peak grad, S 11.6 mm Hg --- ------ E/e', med apolonia, 10 LVOT/AV, VTI ratio 0.42 ------ --- TDI E', avg, TDI 9.9 cm/sec Mitral valve Value Ref E/e', avg, TDI 10 <=14 Peak E 0.97 m/sec --- ------ Peak A 0.55 m/sec --------- LVOT Value Ref Decel time 137 ms --------- Peak james, S 0.86 m/sec Peak grad, D 3.7 mm Hg --------- VTI, S 15.0 cm Peak E/A ratio 1.8 --------- Mean grad, S 2 mm Hg Pulmonic valve Value Ref Ventricular septum Value Ref Peak v, S 1.24 m/sec --------- IVS, ED 0.7 cm 0.6 - 0.9 Peak grad, S 6.0 mm Hg --------- Right ventricle Value Ref Aortic root Value Ref AW thickness, ED (H) 0.9 cm 0.1 - 0.5 Root diam 2.9 cm <3.7 MARY BETH, LAX 1.9 cm Root max diam, ED 2.9 cm <3.7 MARY BETH minor ax, 3.1 cm 1.9 - 3.5 A4C mid Ascending aorta Value Ref AAo AP diam, S 3.0 cm --------- Left atrium Value Ref AP dim, ES 3.70 cm 2.70 - Inferior vena cava Value Ref 3.80 Diam 1.7 cm --------- ML dim, A4C 4.2 cm SI dim, A4C 5.2 cm Vol/bsa, ES, 1-p 31 ml/m^2 11 - 40 A4C Vol/bsa, ES, A/L (H) 37 ml/m^2 16 - 34 Legend: (L) and (H) zoila values outside specified reference range. Prepared and electronically signed by Giancarlo Paz MD 10/19/2019 13:28
--- NOTE | 2019-10-19 14:24 | PN ---
Progress Note - Progress Note Date of Service: 10/19/19 SOAP: Subjective: NAD sitting in chair. + BM [] Objective: Vital Signs Temp 97.1 F 10/19/19 08:47 Pulse 97 10/19/19 08:47 Resp 22 10/19/19 08:47 BP 113/52 10/19/19 08:47 Pulse Ox 96 10/19/19 08:47 Intake & Output 10/18/19 10/19/19 10/19/19 18:59 06:59 18:59 Intake Total 1538 429 200 Output Total 0 Balance 1538 429 200 Intake: IV Fluids 1518 12 NS (0.9%) 1518 12 IVPB 317 ABX - CIPROFLOXACIN 210 metroNIDAZOLE 107 Oral 20 100 200 Output: Urine 0 Liquid Stool 0 Other: Estimated Void Small # Bowel Movements 1 Estimated Stool Amount Large Large # Voids 5 1 Labs Pending PEX: GEN: NAD Chest:CTA CVS: RRR ABD: distended, Tympanic, non tender. vac dressing operating well EXT: calves nontender [] Assessment: 89 yo female S/P recent ERCP & SBO with laparotomy w/ reduction and repair of an internal hernia with closed loop obstruction at [facility], currently with midline incision vac dressing, has mult BM's, loose to start, C Diff negative, WBC 21.3 on 10/19, todays pending. []. Plan: Midline being placed, labs to be drawn. encouraged Deep breathing. Vac dressing changed 12/18, change again Thursday. Non operative at this time []
[2019-10-19 14:52] LABS: Hematocrit 30 % (35-47); Hemoglobin 9.7 g/dL (12.0-16.0); Mean Corpuscular HGB Conc 33 g/dL (31-36); Mean Corpuscular Hemoglobin 31 pg (27-31); Mean Corpuscular Volume 94 fL (80-97); Mean Platelet Volume 7.8 fL (7.4-10.4); Platelet Count 290 10^3/uL (150-450); Red Blood Count 3.19 10^6 /uL (3.70-4.87); Red Cell Distribution Width 15 % (10-15); White Blood Count 25.5 10^3/uL (3.5-10.8)
[2019-10-19 15:15] LABS: Troponin I 0.36 ng/mL (<0.03)
[2019-10-19 15:40] LABS: ABS Basophils 0.1 10^3/ul (0-0.2); ABS Lymphocytes 0.7 10^3/ul (1.0-4.8); ABS Neutrophils 22.6 10^3/ul (1.5-7.7); Lymphocyte % 2.9 %
[2019-10-19 15:45] LABS: BUN/Creatinine Ratio 12.1 (8-20); Calcium 7.7 mg/dL (8.6-10.3); EGFR African American 70.8 (>60); EGFR Non-African American 58.5 (>60); Potassium 3.1 mmol/L (3.5-5.0)
--- NOTE | 2019-10-19 16:07 | PN ---
Subjective Date of Service: 10/19/19 Interval History: Nursing tells me patient appears more lethargic than yesterday. Was refusing blood draws and was amenable to midline placement for lab collection, which was placed today. Patient tells me she feels "fine" and denies dyspnea though does appear dyspneic when speaking. Denies fever/chills, chest pain, abdominal pain, nausea. Objective Active Medications: Acetaminophen (Tylenol Tab*) 650 mg PO Q4H PRN PRN Reason: MILD PAIN or TEMP > 100.4 Enoxaparin Sodium (Lovenox(*)) 40 mg SUBCUT Q24H [facility] Last Admin: 10/18/19 20:30 Dose: Not Given Metronidazole/Sodium Chloride (Flagyl 500 Mg Ivpb*) 500 mg in 100 mls @ 100 mls /hr IVPB Q12H [facility] Last Admin: 10/19/19 09:50 Dose: 100 mls/hr Ciprofloxacin/Dextrose (Cipro 400 Mg Ivpremix(*)) 400 mg in 200 mls @ 200 mls/ hr IVPB Q24H [facility]; Protocol Last Admin: 10/18/19 20:23 Dose: 200 mls/hr Vital Signs - 8 hr 10/19/19 08:47 Temperature 97.1 F Pulse Rate 97 Respiratory 22 Rate Blood Pressure 113/52 (mmHg) O2 Sat by Pulse 96 Oximetry Oxygen Devices in Use Now: Nasal Cannula Appearance: Thin, elderly white female, laying in hospital bed, difficult to arouse initially, appearing in NAD but somewhat dyspneic with conversation at times Eyes: No Scleral Icterus, - - PERRL Ears/Nose/Mouth/Throat: Mucous Membranes Moist Neck: Trachea Midline Respiratory: Symmetrical Chest Expansion and Respiratory Effort, Clear to Auscultation Cardiovascular: NL Sounds; No Murmurs; No JVD, RRR Abdominal: - - wound VAC in place, tender to palpation at wound; abdomen overall soft and nondistended Extremities: - - +1 pitting edema pretibially on the right side, trace pitting edema pretibialy on left side Skin: No Rash or Ulcers Neurological: Alert and Oriented x 3, NL Muscle Strength and Tone Result Diagrams: 10/19/19 14:39 10/19/19 14:39 Microbiology and Other Data: Microbiology 10/17/19 16:08 Blood Culture - Preliminary Blood Venous No Growth Day 1 10/17/19 08:27 Stool Gross Appearance - Final Stool C. difficile DNA Amplification - Final Assess/Plan/Problems-Billing Assessment: This is an 89 year old female with no significant medical history, that had recent ex lap with wound vac and ERCP at [facility] that presents to the ED with complaints of fatigue, weakness and copious diarrhea 3 days after discharge from [facility]. - Patient Problems (1) Hypoxia Current Visit: Yes Status: Acute Code(s): R09.02 - HYPOXEMIA SNOMED Code(s ): 769713543 Comment: -associated with tachycardia -CTA pending to evaluate for PE -ordering dopplers of bilateral LEs as well given LE edema and recent hospitalization -could also be due to fluid overload in setting of aggressive IVF (2) Elevated troponin Current Visit: Yes Status: Acute Code(s): R79.89 - OTHER SPECIFIED ABNORMAL FINDINGS OF BLOOD CHEMISTRY SNOMED Code(s): 355174253 Comment: - Echo without wall abnormalities - Troponin elevated to 0.36 today, unable to check previously as patient was refusing blood draws - EKG does appear to have new T wave inversions in anterior leads compared to prior EKGs - Pending cardiology consult, appreciate input - Could possibly be related to ischemic demand in setting of acute infection or perhaps PE (pending CTA) (3) Infectious colitis Current Visit: Yes Status: Acute Code(s): A09 - INFECTIOUS GASTROENTERITIS AND COLITIS, UNSPECIFIED SNOMED Code(s): 14200943 Comment: - CT scan with colitis - Had a formed stool. Cdiff PCR canceled per lab, stool cultures pending - Had 2 liters NS, will DC IVF and continue clear liquids, patient is volume overloaded and SOB - Surgery consulted to evaluate CT imaging and records from [facility] - PO vanco discontinued, will place on cipro and flagyl to cover for GI pathogens pending recs from surgery and ID - Dr. Singletary changed wound VAC at bedside on 10/18/19 - No diarrhea or abdominal sxs today - Changed abx from cipro/flagyl to zosyn (4) Bacteriuria Current Visit: Yes Status: Acute Code(s): R82.71 - BACTERIURIA SNOMED Code (s): 84721768 Comment: -enterococcus in urine, though <100,000 CFUs and patient is not symptomatic of UTI -covering with zosyn (5) Hx SBO Current Visit: Yes Status: Acute Code(s): Z87.19 - PERSONAL HISTORY OF OTHER DISEASES OF THE DIGESTIVE SYSTEM SNOMED Code(s): 089391209203050 Comment: - SBO 2/2 internal hernia with ex lap on 10/06/19 @ [facility] - Also had ERCP at that time with resolution of stone - Has wound vac to abdomen, requires dressing changes 3x weekly - Surgery consulted. No surgical concerns at this point. (6) DNR (do not resuscitate) Current Visit: Yes Status: Acute Comment: - lovenox SQ (7) DVT prophylaxis Current Visit: Yes Status: Acute Code(s): Z29.9 - ENCOUNTER FOR PROPHYLACTIC MEASURES, UNSPECIFIED SNOMED Code(s): 454445281 Comment: - Reviewed advanced directive, MOLST updated Status and Disposition: Inpatient, guarded. Dispo TBD.
[2019-10-19] MEDS ORDERED: Potassium Chlor TAB* 20 MEQ TAB.ER PO ONE (16:24)
[2019-10-19] MEDS ORDERED: ZOSYN 3.375 GM x ONE DOSE over 30 miuntes IVPB ×2 (17:00)
[2019-10-19] MEDS ORDERED: Piperacillin/Tazobac ADVAN(*) 3.375 GM in NS 0.9% 100 ML* 100 ML IVPB SCH (17:00)
[2019-10-19] MEDS: KCL 20 MEQ/100 ML IVPREMIX* 20 MEQ/100 ML BAG IV SCH ×2 (17:12→22:11)
[2019-10-19] MEDS ORDERED: Zosyn per Pharmacy* NOTE FOLLOW UP PRN (17:24)
--- NOTE | 2019-10-19 18:15 | CONS ---
CC: Dr. Giancarlo Paz CARDIOLOGY CONSULTATION: DATE OF CONSULT: 10/19/19 CONSULTING PROVIDER: ROSENDA Hsieh REASON FOR EVALUATION: Shortness of breath, abnormal EKG. HISTORY OF PRESENT ILLNESS: This is an 89-year-old woman admitted with shortness of breath and diarrhea. She recently had hospitalization for GI distress. She had been seen in the emergency room on 10/04/19 for bowel obstruction and was transferred to [facility] because she needed an ERCP. She apparently had surgery. Her daughter, Silvana, thinks that she had resection of some gallstones with an endoscopic procedure as well as exploratory lap with possible lysis of adhesions. She was discharged on 10/13/19 and developed diarrhea on Thursday. Because of the diarrhea and shortness of breath, she was brought to the emergency room on 10/17/19. She got a liter of fluid yesterday in the ER. Over the course of admission, she has had some nonspecific anterior T-wave changes, new compared to 10/04/19. She also has been requiring oxygen and is tachypneic. She reports chills, but no fever. No chest pain, no orthopnea. She denies dysuria or cough. Her echocardiogram performed on revealed normal LV function, EF of 55% to 60%, wall thickness in the upper limits of normal, mild RVH, low normal RV function, mild biatrial enlargement, mild MR, unable to evaluate PA pressure with trace TR. PAST MEDICAL HISTORY: Includes remote history of tobacco use, discontinued 25 years ago; macular degeneration. PAST SURGICAL HISTORY: ERCP and exploratory lap 2 weeks ago. She denies other surgeries. MEDICATIONS: Her medications as an outpatient include PreserVision AREDS 2 caps q.a.m. Her medications as an inpatient include: 1. Acetaminophen. 2. Lovenox 40 mg q.24, started this visit. 3. Piperacillin/tazobactam 100 mL q.8. 4. Potassium IV. ALLERGIES: She has no known allergies. FAMILY HISTORY: Her parents in their 80s. There is no premature coronary artery disease. SOCIAL HISTORY: She is and has 4 adult children. She lives in her own home and does not drive, but is able to take care of herself at home. She has 2 cups of caffeinated coffee a day, 1 glass of wine a day. She denies any alcohol withdrawal or blackout. She has no siblings. REVIEW OF SYSTEMS: Review of systems x10 was negative except as above. PHYSICAL EXAM: She is a well-developed, well-nourished, elderly female appearing frail and short of breath. Respiratory rate 24, blood pressure 110/60 , heart rate of 93 and somewhat irregular, O2 sat is 95% on 2 L. No significant JVD. Carotids 2+. No cervical adenopathy. No thyromegaly. Extraocular muscles intact. Sclerae anicteric. Arcus senilis present. Cardiac Exam: S1, S2 with some irregularity and a 2/6 holosystolic murmur at the left lower sternal border and apex. Chest was clear. Decreased breath sounds. Increased resonance to percussion. No CVAT. There was kyphosis. Abdomen: Bowel sounds present. Mildly tender. Femoral pulses intact without bruits. Distal pulses intact. There is 1 to 2+ edema of the lower extremities. Negative Homans sign. She has diminished strength about 4/5 in the lower extremities, 5/5 in the upper extremities. Deep tendon reflexes were diminished at 1/4 in the upper extremities, unable to elicit in the lower extremities. She thinks it is October, but does not know the year. She says that she has been asked a lot of questions. DIAGNOSTIC STUDIES/LAB DATA: Her labs include a white count of 25, hemoglobin of 9.7, hematocrit of 30, platelet count of 290. Sodium 134, potassium of 3.1, BUN of 11, creatinine of 0.91, lactic acid 1.3 on 10/17/19, magnesium was low at 1.6. Troponin was 0.08 on 10/17/19, 0.09 a few hours later, and 0.36 today. CRP elevated at 146. BNP elevated at 1175. Albumin low at 3.1. Chest x-ray on 10/17/19 revealed chronic pleural changes. No definite infiltrate. EKG from today revealed sinus rhythm at 87 with low voltage, poor R-wave progression, anterior T-wave changes and nonspecific anterior ST-T changes, somewhat similar to 10/17/[address]-T changes are new compared to 10/05/19. IMPRESSION AND PLAN: An 89-year-old woman with dyspnea and edema and nonspecific EKG changes. Her presentation with diarrhea and elevated white count raises the possibility of sepsis as well as pulmonary embolism given her recent hospitalization, recent surgery, and advanced age. I have discussed the case with ROSENDA Hsieh and for the time being, I would recommend the followin. We would evaluate for possible pulmonary embolism, treat accordingly. 2. We would consider possibility of Clostridium difficile colitis and evaluate and treat for sepsis. 3. We would consider the possibility of coronary insufficiency. I discussed this with the patient's daughter, son and the patient. She is uncertain how aggress she would want to be with more advanced interventions. Given her preserved LV function and nonspecific EKG changes, I would prefer medical treatment for now. This may be a type 2 infarct due to demand rather than primary cardiac event. 4. Consider adding asa and a statin if no evidence of Pulmonary embolism. 5. consider stress nuclear if above negative. Further recommendations will depend on clinical course. Prognosis is guarded given her advanced age and multiple comorbidities. [id number]/[facility] #: [id number] [place]
[2019-10-19] MEDS ORDERED: Iodixanol* (CONTRAST) 320 MG/ML 100 ML SDV IV ONE (18:46)
[2019-10-19] MEDS: Enoxaparin(*) 40 MG/0.4 ML SYR SUBCUT SCH (20:46)
[2019-10-19] MEDS: ZOSYN 3.375 GM Q8H per EXTENDED INFUSION IVPB SCH ×2 (20:46)
[2019-10-19] MEDS ORDERED: Magnesium Sulfate 2 GM IV* 2 GM/50 ML BAG IVPB ONE (22:34)
[2019-10-20] MEDS: ZOSYN 3.375 GM Q8H per EXTENDED INFUSION IVPB SCH ×4 (04:59→13:44)
[2019-10-20 05:08] LABS: ABS Basophils 0.1 10^3/ul (0-0.2); ABS Eosinophils 0.1 10^3/ul (0-0.6); ABS Lymphocytes 0.9 10^3/ul (1.0-4.8); ABS Monocytes 1.3 10^3/ul (0-0.8); ABS Neutrophils 17.6 10^3/ul (1.5-7.7); Eosinophil % 0.5 %; Hematocrit 28 % (35-47); Hemoglobin 9.4 g/dL (12.0-16.0); Lymphocyte % 4.3 %; Mean Corpuscular HGB Conc 33 g/dL (31-36); Mean Corpuscular Hemoglobin 31 pg (27-31); Mean Corpuscular Volume 93 fL (80-97); Mean Platelet Volume 7.7 fL (7.4-10.4); Platelet Count 272 10^3/uL (150-450); Red Blood Count 3.04 10^6 /uL (3.70-4.87); Red Cell Distribution Width 15 % (10-15)
[2019-10-20 05:29] LABS: Anion Gap 5 mmol/L (2-11); BUN/Creatinine Ratio 13.4 (8-20); Blood Urea Nitrogen 11 mg/dL (6-24); CO2 Carbon Dioxide 24 mmol/L (22-32); Calcium 7.6 mg/dL (8.6-10.3); Chloride 105 mmol/L (101-111); EGFR African American 79.8 (>60); EGFR Non-African American 65.9 (>60); Glucose 135 mg/dL (70-100); Magnesium 2.2 mg/dL (1.9-2.7); Potassium 3.9 mmol/L (3.5-5.0); Sodium 134 mmol/L (135-145)
[2019-10-20 07:53] LABS: Troponin I 0.26 ng/mL (<0.03)
[2019-10-20] MEDS: Aspirin EC TAB* 81 MG TAB.EC PO SCH (11:29)
[2019-10-20 12:28] LABS: ALT 19 U/L (7-52); AST 11 U/L (13-39); Albumin 2.2 g/dL (3.2-5.2); Albumin/Globulin Ratio 0.9 (1-3); Alkaline Phosphatase 75 U/L (34-104); Globulin 2.5 g/dL (2-4); Indirect Bilirubin 0.3 mg/dL (0.3-1.0); Total Protein 4.7 g/dL (6.4-8.9)
--- NOTE | 2019-10-20 13:25 | PN ---
Progress Note - Progress Note Date of Service: 10/20/19 Note: Patient is doing well today. She has been out of bed to chair and walked to the commode. She denies chest pain, shortness of breath, or abdominal pain. No nausea or vomiting. Tolerating clears. Continuing to have bowel movements overnight which were formed. CTA thorax yesterday did not show PE but did reveal pneumobilia and air in gallbladder. Temp Pulse Resp BP Pulse Ox 97 F 80 24 109/47 99 10/20/19 11:04 10/20/19 12:06 10/20/19 11:04 10/20/19 11:04 10/20/19 12:06 General: No acute distress. Appears comfortable lying in bed. Breathing comfortably on room air Abdomen: soft, nondistended, mild tenderness to palpation of RLQ and LLQ. Wound vac in place, no erythema around the wound and minimal to no drainage in canister. Neuro: Awake and alert. Answers questions appropriately Abnormal Lab Results 10/19/19 10/19/19 10/20/19 14:39 14:39 04:45 WBC 25.5 H RBC 3.19 L Hgb 9.7 L Hct 30 L MCV 94 MCH 31 MCHC 33 RDW 15 Plt Count 290 MPV 7.8 Neut % (Auto) 89.0 Lymph % (Auto) 2.9 Liberty % (Auto) 7.9 Eos % (Auto) 0.0 Baso % (Auto) 0.2 Absolute Neuts (auto) 22.6 H Absolute Lymphs (auto) 0.7 L Absolute Monos (auto) 2.0 H Absolute Eos (auto) 0.0 Absolute Basos (auto) 0.1 Absolute Nucleated RBC 0.0 Nucleated RBC % 0.0 Sodium 134 L 134 L Potassium 3.1 L 3.9 Chloride 102 105 Carbon Dioxide 25 24 Anion Gap 7 5 BUN 11 11 Creatinine 0.91 0.82 Est GFR ( Amer) 70.8 79.8 Est GFR (Non-Af Amer) 58.5 65.9 BUN/Creatinine Ratio 12.1 13.4 Glucose 209 H 135 H Calcium 7.7 L 7.6 L Magnesium 2.2 Total Bilirubin Direct Bilirubin Indirect Bilirubin AST ALT Alkaline Phosphatase Troponin I 0.36 H* 0.26 H* Total Protein Albumin Globulin Albumin/Globulin Ratio 10/20/19 10/20/19 04:45 11:30 WBC 20.0 H RBC 3.04 L Hgb 9.4 L Hct 28 L MCV 93 MCH 31 MCHC 33 RDW 15 Plt Count 272 MPV 7.7 Neut % (Auto) 88.3 Lymph % (Auto) 4.3 Liberty % (Auto) 6.6 Eos % (Auto) 0.5 Baso % (Auto) 0.3 Absolute Neuts (auto) 17.6 H Absolute Lymphs (auto) 0.9 L Absolute Monos (auto) 1.3 H Absolute Eos (auto) 0.1 Absolute Basos (auto) 0.1 Absolute Nucleated RBC 0.0 Nucleated RBC % 0.0 Sodium Potassium Chloride Carbon Dioxide Anion Gap BUN Creatinine Est GFR ( Amer) Est GFR (Non-Af Amer) BUN/Creatinine Ratio Glucose Calcium Magnesium Total Bilirubin 0.40 Direct Bilirubin 0.10 Indirect Bilirubin 0.3 AST 11 L ALT 19 Alkaline Phosphatase 75 Troponin I Total Protein 4.7 L Albumin 2.2 L Globulin 2.5 Albumin/Globulin Ratio 0.9 L 89F admitted with weakness, diarrhea, and leukocytosis. Etiology for elevated WBC not clear but is now improving with empirical antibiotics. Pneumobilia and air in gallbladder most likely due to ERCP. There is no evidence of biliary obstruction to suggest recurrent choledocholithiasis. -Continue Zosyn. Follow up WBC tomorrow -Advance diet as tolerated -Will plan to change the wound vac tomorrow. May switch to wet to dry dressing since wound was very shallow.
--- NOTE | 2019-10-20 14:21 | PN ---
Subjective Date of Service: 10/20/19 Interval History: f/u type 2 mi and/or myocyte injury patient denies any chest discomfort evaluation and treatment of her intraabdominal process is ongoing children at bedside, they want to take her home Medications Active Medications: Acetaminophen (Tylenol Tab*) 650 mg PO Q4H PRN PRN Reason: MILD PAIN or TEMP > 100.4 Aspirin (Aspirin Ec Tab*) 81 mg PO DAILY [facility] Last Admin: 10/20/19 11:29 Dose: 81 mg Atorvastatin Calcium (Lipitor*) 40 mg PO 2100 EN Enoxaparin Sodium (Lovenox(*)) 40 mg SUBCUT Q24H [facility] Last Admin: 10/19/19 20:46 Dose: 40 mg Piperacillin Sod/Tazobactam (Sod 3.375 gm/ Sodium Chloride) 100 mls @ 25 mls/ hr IVPB Q8H [facility] Last Admin: 10/20/19 13:44 Dose: 25 mls/hr Pharmacy Consult (Luis Per Pharmacy*) 1 note FOLLOW UP . PRN PRN Reason: PER PROTOCOL Objective Vital Signs: Temp Pulse Resp BP Pulse Ox 97 F 80 24 109/47 99 10/20/19 11:04 10/20/19 12:06 10/20/19 11:04 10/20/19 11:04 10/20/19 12:06 Oxygen Devices in Use Now: Nasal Cannula Appearance: frail, eldelry, pleasant Neck: NL Appearance and Movements; NL JVP, Trachea Midline Respiratory: Symmetrical Chest Expansion and Respiratory Effort Cardiovascular: NL Sounds; No Murmurs; No JVD, RRR, No Edema Abdominal: - - wound vac in place Extremities: No Clubbing, Cyanosis Neurological: Alert and Oriented x 3 Laboratory Results: 10/20/19 04:45 10/20/19 04:45 INR (Anticoag Therapy) 1.07 (0.82-1.09) 10/17/19 18:21 APTT 27.4 seconds (26.0-38.0) 10/17/19 18:21 Total Bilirubin 0.40 mg/dL (0.2-1.0) 10/20/19 11:30 Direct Bilirubin 0.10 mg/dL (0.03-0.18) 10/20/19 11:30 Indirect Bilirubin 0.3 mg/dL (0.3-1.0) 10/20/19 11:30 AST 11 U/L (13-39) L 10/20/19 11:30 ALT 19 U/L (7-52) 10/20/19 11:30 Alkaline Phosphatase 75 U/L (34-104) 10/20/19 11:30 B-Natriuretic Peptide 1175 pg/mL (<=100) H 10/17/19 18:04 Total Protein 4.7 g/dL (6.4-8.9) L 10/20/19 11:30 Albumin 2.2 g/dL (3.2-5.2) L 10/20/19 11:30 Globulin 2.5 g/dL (2-4) 10/20/19 11:30 Albumin/Globulin Ratio 0.9 (1-3) L 10/20/19 11:30 10/17/19 10/17/19 10/19/19 16:55 20:41 14:39 Troponin I 0.08 H* 0.09 H* 0.36 H* 10/20/19 04:45 Troponin I 0.26 H* Diagnostic Imaging: Exam Date: 10/19/19 1 IMPRESSION: 1. No evidence of pulmonary embolus. 2. Small bilateral pleural effusions with lower lobe atelectasis, right greater than left, similar to abdomen pelvis CT 10/17/19. 3. Collection of air now present in the gallbladder lumen. Correlate with clinical history for recent instrumentation. If there has been no recent instrumentation, recommend further evaluation with contrast enhanced abdomen and pelvis CT. 4. Cholelithiasis. Transthoracic Echocardiogram Study Date: 10/19/2019 Summary: - Left ventricle: The cavity size is normal. Wall thickness is at the upper limits of normal. Systolic function is normal. The estimated ejection fraction is 55-60%. - Right ventricle: The cavity size is normal. Wall thickness is mildly increased. Systolic function is low normal. - Left atrium: The atrium is mildly dilated. - Right atrium: The atrium is mildly dilated. - Mitral valve: There is mild regurgitation, directed eccentrically. - Aortic valve: The valve is trileaflet. The leaflets are mildly thickened. EKG Data: ekg 10/20/2019: nsr, nonpspecific st/t changes improved Assessment/Plan 1. Acute intra-abdominal process - Surgery note reviewed 2. Anemia 3. Type 2 HI and/or myocyte injury - secondary to # 1 and 2 - clinical presentation not consistent with acute type 1 plaque disruption HI, cannot exclude underlying fixed epicardial atherosclerotic coronary artery disease. - continue aspirin and statin if no contraindication - continue evaluation and treatment of abdominal process - discussed with Aly MCCONNELL and children at bedside - will sign off, please reconsult as needed - 30 minutes of clinical care provided including coordination of care
--- NOTE | 2019-10-20 19:02 | PN ---
Subjective Date of Service: 10/20/19 Interval History: Patient less lethargic today and awake most of day. Patient's son tells me that when patient awoke this morning, her LE edema was improved. Nursing does not agree with this. When discussing possibly diuresing, family requests attemping further elevation before resorting to medications. Patient tells me she has abdominal pain only when repositioning, otherwise none. Denies nausea, vomiting, fever/chills, difficulty breathing, chest pain. Objective Active Medications: Acetaminophen (Tylenol Tab*) 650 mg PO Q4H PRN PRN Reason: MILD PAIN or TEMP > 100.4 Aspirin (Aspirin Ec Tab*) 81 mg PO DAILY [facility] Last Admin: 10/20/19 11:29 Dose: 81 mg Atorvastatin Calcium (Lipitor*) 40 mg PO 2100 EN Enoxaparin Sodium (Lovenox(*)) 30 mg SUBCUT BEDTIME EN Piperacillin Sod/Tazobactam (Sod 3.375 gm/ Sodium Chloride) 100 mls @ 25 mls/ hr IVPB Q8H [facility] Last Admin: 10/20/19 13:44 Dose: 25 mls/hr Pharmacy Consult (Luis Per Pharmacy*) 1 note FOLLOW UP . PRN PRN Reason: PER PROTOCOL Vital Signs - 8 hr 10/20/19 10/20/19 10/20/19 11:04 12:06 15:15 Temperature 97 F 97.7 F Pulse Rate 79 80 71 Respiratory 24 16 Rate Blood Pressure 109/47 98/64 (mmHg) O2 Sat by Pulse 100 99 96 Oximetry Oxygen Devices in Use Now: None Appearance: Thin, elderly white female, laying upright in bed, interactive, appearing comfortable and in NAD Eyes: No Scleral Icterus, - - PERRL Ears/Nose/Mouth/Throat: Mucous Membranes Moist Neck: NL Appearance and Movements; NL JVP Respiratory: Symmetrical Chest Expansion and Respiratory Effort, - - right lower lobe faint crackles, otherwise CTA Cardiovascular: NL Sounds; No Murmurs; No JVD, RRR Abdominal: NL Sounds; No Tenderness; No Distention Extremities: - - +1 pitting edema pretibially and +2 pitting edema pedally bilaterally Skin: No Rash or Ulcers Neurological: Alert and Oriented x 3, NL Muscle Strength and Tone Result Diagrams: 10/20/19 04:45 10/20/19 04:45 Microbiology and Other Data: Microbiology 10/17/19 16:08 Blood Culture - Preliminary Blood Venous No Growth Day 1 10/17/19 08:27 Stool Gross Appearance - Final Stool C. difficile DNA Amplification - Final Assess/Plan/Problems-Billing Assessment: This is an 89 year old female with no significant medical history, that had recent ex lap with wound vac and ERCP at [facility] that presents to the ED with complaints of fatigue, weakness and copious diarrhea 3 days after discharge from [facility]. - Patient Problems (1) Infectious colitis Current Visit: Yes Status: Acute Code(s): A09 - INFECTIOUS GASTROENTERITIS AND COLITIS, UNSPECIFIED SNOMED Code(s): 89665328 Comment: - CT scan with colitis - Had a formed stool. Cdiff PCR and stool cultures negative - tolerating regular diet, no BM today - Surgery consulted to evaluate CT imaging and records from [facility] - Dr. Singletary changed wound VAC at bedside on 10/18/19 - given that diarrhea has resolved, possibly this was a viral or bacterial gastroenteritis, will d/c abx as patient is improving. - Likely reason for leukocytosis which is downtrending but wound like to follow tomorrow (2) Elevated troponin Current Visit: Yes Status: Acute Code(s): R79.89 - OTHER SPECIFIED ABNORMAL FINDINGS OF BLOOD CHEMISTRY SNOMED Code(s): 591505425 Comment: - Echo without wall abnormalities - Troponin peaked to 0.36 and has downtrended, unable to check previously as patient was refusing blood draws - EKG does appear to have new T wave inversions in anterior leads compared to prior EKGs - Appreciate cardiology consult. Dr. King believes this is likely ischemic demand. (3) Hypoxia Current Visit: Yes Status: Acute Code(s): R09.02 - HYPOXEMIA SNOMED Code(s ): 077693148 Comment: -CTA negative for PE -possibly related to postop atelectasis or aggressive fluid hydration -resolved (4) Bacteriuria Current Visit: Yes Status: Acute Code(s): R82.71 - BACTERIURIA SNOMED Code (s): 03165077 Comment: -enterococcus in urine, though <100,000 CFUs and patient is not symptomatic of UTI -d/c abx (5) Hx SBO Current Visit: Yes Status: Acute Code(s): Z87.19 - PERSONAL HISTORY OF OTHER DISEASES OF THE DIGESTIVE SYSTEM SNOMED Code(s): 884766647563735 Comment: - SBO 2/2 internal hernia with ex lap on 10/06/19 @ [employer] - Also had ERCP at that time with resolution of stone - Has wound vac to abdomen, requires dressing changes 3x weekly - Surgery consulted. No surgical concerns at this point. Dr. Singletary plans to change wound vac again tomorrow (6) Lower extremity edema Current Visit: Yes Status: Acute Code(s): R60.0 - LOCALIZED EDEMA SNOMED Code(s): 902210075 Comment: -dopplers r/o DVT bilaterally -patient and family requesting avoiding medications at this time -ordered elevating legs, will continue to monitor -could be related to aggressive IVF earlier in hospitalization (7) DNR (do not resuscitate) Current Visit: Yes Status: Acute Comment: - lovenox SQ (8) DVT prophylaxis Current Visit: Yes Status: Acute Code(s): Z29.9 - ENCOUNTER FOR PROPHYLACTIC MEASURES, UNSPECIFIED SNOMED Code(s): 511247975 Comment: - Reviewed advanced directive, MOLST updated Status and Disposition: Inpatient. Patient refuses GERARDO, anticiate D/C home when stable
[2019-10-20] MEDS ORDERED: Enoxaparin(*) 30 MG/0.3 ML SYR SUBCUT SCH (21:00)
[2019-10-20] MEDS ORDERED: Atorvastatin* 40 MG TAB PO SCH (21:00)
[2019-10-21 05:57] LABS: ABS Basophils 0.1 10^3/ul (0-0.2); ABS Eosinophils 0.2 10^3/ul (0-0.6); ABS Monocytes 0.7 10^3/ul (0-0.8); ABS Neutrophils 10.6 10^3/ul (1.5-7.7); Eosinophil % 1.5 %; Hematocrit 28 % (35-47); Hemoglobin 8.9 g/dL (12.0-16.0); Lymphocyte % 7.9 %; Mean Corpuscular HGB Conc 33 g/dL (31-36); Mean Corpuscular Hemoglobin 30 pg (27-31); Mean Corpuscular Volume 93 fL (80-97); Mean Platelet Volume 7.8 fL (7.4-10.4); Platelet Count 306 10^3/uL (150-450); Red Blood Count 2.95 10^6 /uL (3.70-4.87); Red Cell Distribution Width 15 % (10-15); White Blood Count 12.6 10^3/uL (3.5-10.8)
[2019-10-21 08:02] LABS: Total Iron Binding Capacity 125 mcg/dL (250-450); Transferrin 89 mg/dL (203-362)
[2019-10-21 08:05] LABS: % Iron Saturation 16 % (15-55); Iron < 20 ug/dL (50-212)
[2019-10-21 08:29] LABS: Ferritin 403.9 ng/mL (11-307)
[2019-10-21] MEDS: Aspirin EC TAB* 81 MG TAB.EC PO SCH (11:07)
--- NOTE | 2019-10-21 12:14 | PN ---
Progress Note - Progress Note Date of Service: 10/21/19 Note: Patient is feeling well this morning. She has been ambulating in the hallways and walking to the bathroom. She has started eating and tolerating solid foods. Last bowel movement was yesterday but passing gas. Denies chest pain or abdominal pain. Some shortness of breath after walking. Temp Pulse Resp BP Pulse Ox 97 F 72 18 90/45 94 10/21/19 07:15 10/21/19 07:15 10/21/19 08:00 10/21/19 07:15 10/21/19 07:15 General: No acute distress. Breathing comfortably on room air. Abdomen: soft, nontender, nondistended. Wound vac changed. Wound is clean, no erythema or drainage. Granulation tissue at base of wound. Extremities: Minimal pedal edema bilaterally. Warm. Laboratory Tests 10/21/19 05:32 WBC 12.6 H A&P 89F s/p ex lap and lysis of adhesions for closed loop obstruction, ERCP for choledocholithiasis on 10/06, admitted with diarrhea, weakness, leukocytosis. Continues to improve and WBC coming down. -Wound vac to be changed Thursday by home nurse. -Patient plans to follow up with outside surgeon late next week. -Please call with questions.
[2019-10-21] MEDS ORDERED: Ferrous Sulfate TAB* 325 MG PO SCH (14:00)
[2019-10-21 18:49] VITALS: BP 92/41
--- NOTE | 2019-10-22 00:40 | DS ---
CC: Dr. Alvares * DISCHARGE SUMMARY: DATE OF ADMISSION: 10/17/19 DATE OF DISCHARGE: 10/21/19 ATTENDING PHYSICIAN WHILE IN THE HOSPITAL: Dr. Antonio Lucas * (dictated by ROSENDA Hsieh) PRIMARY CARE PROVIDER: Dr. Alvares. PRIMARY DIAGNOSES: 1. Hypoxia, likely related to atelectasis. 2. Sepsis secondary to infectious diarrhea, likely viral gastroenteritis. Sepsis resolved. 3. Iron deficiency anemia. 4. Elevated troponin related to ischemic demand. SECONDARY DIAGNOSES: 1. Recent small bowel obstruction requiring exploratory laparotomy. 2. Recent endoscopic retrograde cholangio-pancreatography for gallstone removal. 3. Macular degeneration. PERTINENT LAB DATA: Iron less than 20, TIBC 125, transferrin 89. Troponin peaked at 0.36, later downtrended to 0.26. White blood cell count 21.3 on 10/17. On 10/21/19, white blood cell count is 12.6. PERTINENT STUDIES WHILE IN THE HOSPITAL: CTA of the chest on 10/19/19, impression: No evidence of pulmonary embolus. Small bilateral pleural effusions with lower lobe atelectasis, right greater than left, similar to the abdomen and pelvis CT on 10/17/19. Collection of air not present in gallbladder lumen and correlate with clinical history for recent instrumentation. Cholelithiasis. On 10/19/19, bilateral venous Doppler. No evidence for left or right lower extremity DVT. Bilateral lower extremities, subcutaneous edema. Abdomen and pelvis CT on 10/17/19. Impression: Infectious enterocolitis. New right greater than left pleural effusion and associated volume loss. Left ovarian cyst. No followup is necessary. Transthoracic echocardiogram on 10/18/19, EF is 55% to 60%, systolic function is normal. Wall thickness is that of the upper limits of normal. Left ventricular diastolic dysfunction parameters are indeterminate. HISTORY OF PRESENT ILLNESS/HOSPITAL COURSE: Samra Garcia is an 89-year-old white female with past medical history significant for recent exploratory laparotomy on 10/06/19 for SBO as well as recent ERCP for gallstone removal who presented to emergency department on 10/17/19 due to shortness of breath, urinary frequency and diarrhea. For further details, please see the admitting history and physical written by Brenda Kirby on 10/17/19. In brief, the patient was having 6 plus episodes of diarrhea per day at home. By the time that she was admitted to the hospital, the C. diff test were not performed due to the stool being formed, therefore indicating that the initial diarrhea was not related to C. diff. Stool culture was performed. It was negative for shiga toxin 1 and 2. Ultimately, the patient's diarrhea resolved while she was in the hospital and has been having small, formed bowel movements. She was able to tolerate the diet. She was seen by the general surgery team, who did not believe this was related to any surgical complications. Her leukocytosis was downtrending during the hospital stay, possibly related to viral gastroenteritis or bacterial infectious source that was not checked on the stool culture. Nonetheless, that has resolved. She was covered with Cipro and Flagyl initially, which was then changed to Zosyn during her hospital stay, although I do not believe this is needed any further as I do not believe there is a bacterial cause at her presentation that needs to be treated. She was found to have bacteruria during her hospital stay; however, she was no longer symptomatic of this further in her hospital stay and she was initially complaining of urinary frequency; however, this was resolved with Cipro and Flagyl, which she ultimately received 5 days of antibiotic coverage and therefore, does not need further antibiotics at home. The patient's troponin was elevated to 0.08 initially at admission. She did not initially have any ischemic changes on her EKG and then was refusing blood draws because of the pain of the draws. She did have a midline placed for the sake of blood draws, which occurred on 10/19/19 and then labs were able to be drawn. Her troponin was then found to be 0.36 and there appeared to be T-wave inversions compared to baseline in her anterior leads and I was concerned for NSTEMI. She was seen in consultation by Cardiology who believed that this was likely just ischemic demand. Cardiology did recommend starting aspirin and statin, which were started during the hospital stay. The patient is asymptomatic and did not complain of any anginal symptoms. This is likely ischemic demand in the setting of her infectious colitis. She was initially feeling lethargic and this also improved during her hospital stay. The surgical team changed her wound VAC on 2 occasions during this hospital stay including on 10/18/19 and 10/21/19. The patient initially had aggressive IV fluid hydration and then experienced shortness of breath after that including some trace bilateral lower extremity edema. This lower extremity edema was persistent, which is why Dopplers were ordered, especially in the setting of the patient refusing her injections for DVT prophylaxis and these were found to be normal as discussed above. Her edema was found to be greatly improved after lower extremity elevation. This is likely dependent edema, especially in the setting of aggressive fluid hydration and has improved. The patient's pulse oximetry was checked with ambulation and she was able to maintain good oxygen saturations over 90%. The patient was seen by Physical Therapy and recommended subacute rehab; however , the patient refused and expressed desire to go home with home physical therapy. Finally, the patient was anemic during her hospital stay and I checked an iron panel, which was consistent with iron deficiency anemia. I started her on oral iron supplement. On the day of discharge, the patient is feeling well. She denies difficulty breathing, chest pain, abdominal pain other than with position changes, nausea, vomiting, diarrhea. She did not yet have a bowel movement today. Denies fevers and chills. PHYSICAL EXAMINATION ON THE DAY OF DISCHARGE: General: Thin elderly white female, lying in hospital chair, appearing comfortable, in no acute distress. Eyes: PERRL. Sclerae anicteric. ENT: Mucous membranes are moist. Lungs: Clear to auscultation bilaterally. Cardio: Regular rate and rhythm without murmurs, rubs, or gallops. Abdomen: Wound VAC along the central incision is approximately 8 to 10 cm in length without surrounding erythema or edema. Tender to palpation at wound site; however, no other tenderness throughout. Normoactive bowel sounds. Abdomen is soft. Extremities: Trace pedal edema bilaterally. Neuro: The patient is alert and oriented x3. No focal deficits. DISCHARGE PLAN: Diet: Regular, unrestricted diet. Activity: The patient may return to normal activity as tolerated. The patient will be going home. S has been set up for home visit and physical therapy. She also already has home nurses set up through [facility] for her wound checks. She is to follow up with her primary care doctor in 4 to 7 days to ensure resolution of her lower extremity edema with further elevation as advised. Additionally, the patient was provided with incentive spirometer use at home to further improve her atelectasis and had followup to ensure that her hypoxia does not recur. The patient is advised that her iron supplements may likely cause her to have bowel movements. She is advised to return to the emergency department for severe abdominal pain, diarrhea of over 6 loose stools per day, vomiting to the point of not being able to eat foods, fever, chills, chest pain, difficulty breathing or loss of consciousness. DISCHARGE MEDICATIONS: Continued home medication: 1. PreserVision 2 caps p.o. daily. New medications: 1. Ferrous sulfate 325 mg p.o. t.i.d. 2. Lipitor 40 mg p.o. daily. 3. Aspirin 81 mg p.o. daily. 4. Tylenol 650 mg p.o. q.4 hours p.r.n. pain. CONDITION ON DISCHARGE: Improved. DISPOSITION: Home. TIME SPENT: Approximately 40 minutes were spent on this discharge, approximately half that time was spent at bedside evaluating the patient, discussing the plan of care. ROSENDA HSIEH [id number]/[facility] #: [id number] [place]
== END 2019-10-21 17:31 | disposition home health service (06) | DRG 872 ==
LOC: ED 13:57 → MEDTELE 20:58 → MED 21:54 → MEDTELE 21:55 → OBSVTOIN 10-18 11:00
PROVIDERS: ADMIT Student in an Organized Health Care Education/Training Program; ATTEND Internal Medicine
DX: A41.89 Other specified sepsis (principal); E87.2 Acidosis; J98.11 Atelectasis; I24.8 Other forms of acute ischemic heart disease; J90 Pleural effusion, not elsewhere classified; A08.4 Viral intestinal infection, unspecified; I08.1 Rheumatic disorders of both mitral and tricuspid valves; H35.30 Unspecified macular degeneration; R79.89 Other specified abnormal findings of blood chemistry; Z66 Do not resuscitate; I10 Essential (primary) hypertension; E87.70 Fluid overload, unspecified; R09.02 Hypoxemia; R82.71 Bacteriuria; D64.9 Anemia, unspecified; R60.0 Localized edema; D50.9 Iron deficiency anemia, unspecified; Z87.891 Personal history of nicotine dependence
CPT/HCPCS: 36415; 71046; 71275; 74177; 80048; 80053; 80076; 81003; 81015; 82330; 82728; 83540; 83550; 83605; 83735; 83880; 84484; 85025; 85610; 85730; 86140; 87040; 87045; 87046; 87077; 87086; 87186; 87899; 93005; 93306; 93970; 99283; A9270-GY; G0378; G8978-GP-CL; G8979-GP-CJ; J0456; J0696; J0744; J1650; J2543; J3475; J3480; Q9967